=== PATIENT | female | born 1970 | race Caucasian/White ===

== ENCOUNTER 2022-02-05 11:51 | Emergency (ER) | payer OTHER, SELFPAY ==
[2022-02-05 12:08] VITALS: BP 167/73; PULSE 62; RESP 18; TEMP 36.6; O2SAT 100; BMI 35.6
--- NOTE | 2022-02-05 12:14 | ECG_ITS ---
Test Reason : headache Blood Pressure : / mmHG Vent. Rate : 062 BPM Atrial Rate : 062 BPM P-R Int : 136 ms QRS Dur : 080 ms QT Int : 416 ms P-R-T Axes : 039 051 043 degrees QTc Int : 422 ms Normal sinus rhythm Normal ECG No previous ECGs available Referred By: Generic ED Physician Electronically Signed By:ARSENIO BERNAL
[2022-02-05 12:41] LABS: MANUAL DIFF FLAG NO
[2022-02-05 12:42] LABS: Basophils Percent Auto 0.5 % (0-2); Eosinophils Absolute Auto 0.2 X10*3/uL (0.0-0.4); Eosinophils Percent Auto 2.2 % (0-4); Hematocrit 40.5 % (37.0-47.0); Hemoglobin 13.3 g/dl (12.0-16.0); Imm Gran Abs Auto 0.02 X10*3/uL (0.00-0.03); Imm Gran Pct Auto 0.3 % (0.0-0.4); Lymphocytes Absolute Auto 2.1 X10*3/uL (1.2-4.9); Lymphocytes Percent Auto 26.3 % (20-40); Mean Corpuscular HGB Conc 32.8 g/dl (31.0-35.0); Mean Corpuscular Hemoglobin 27.2 pg (27.0-33.0); Mean Corpuscular Volume 82.8 fL (80.0-98.0); Mean Platelet Volume 11.1 fL (9.4-12.3); Monocytes Absolute Auto 0.6 X10*3/uL (0.1-1.2); Monocytes Percent Auto 7.5 % (2-11); Neutrophils Percent Auto 63.2 % (45-73); Platelet Count 298 X10*3/uL (160-400); Red Blood Count 4.89 X10*6/uL (4.20-5.50); Red Cell Distribution Width 13.6 % (11.0-16.0); White Blood Count 7.9 X10*3/uL (4.8-10.8)
[2022-02-05 12:46] LABS: Appearance Urine Clear; Color Urine Yellow; Glucose Urine UA Negative (Negative); Leukocyte Esterase Urine Negative (Negative); Nitrite Urine Negative (Negative); Specific Gravity - Urine <= 1.005 (1.005-1.025); Urine Blood Negative (Negative); Urine Ketones Negative (Negative); Urine Protein Negative (Neg-Trace)
[2022-02-05 13:04] LABS: Alanine Aminotransferase 20 U/L (0-31); Albumin Level 3.8 g/dL (3.5-5.0); Alkaline Phosphatase 102 U/L (39-117); Anion Gap 15 (12-20); Aspartate Amino Transferase 16 U/L (5-31); Bilirubin Direct 0.2 mg/dL (0.0-0.5); Bilirubin Total 0.6 mg/dL (0.0-1.0); Blood Urea Nitrogen 11 mg/dL (9-16); Calcium 8.7 mg/dL (8.4-10.2); Carbon Dioxide 26 mmol/L (22-29); Chloride 102 mmol/L (96-108); Creatinine Clr Calc Pharmacy 93.2; Estimated Glomerular Filt Rate > 60; Glucose Random 99 mg/dL (60-115); Potassium 4.2 mmol/L (3.3-5.1); Sodium 139 mmol/L (135-145); Total Protein 7.2 g/dL (6.5-8.0)
[2022-02-05 13:10] LABS: Troponin-I High Sensitivity < 3.5 ng/L (<3.5-17.0)
--- NOTE | 2022-02-05 16:23 | ED_ITS ---
HPI - Neuro Symptoms/Deficit General Chief Complaint: Neuro Symptoms/Deficit <ZEINAB Fair Last Filed: 02/09/22 17:14> Stated Complaint: headaches/numbness in fingers <ZEINAB Fair Last Filed: 02/09/22 17:14> Time Seen by Provider: 02/05/22 16:23 <ZEINAB Fair Last Filed: 02/09/22 17:14> Source: patient <ZEINAB Little Last Filed: 02/05/22 18:10> Mode of arrival: ambulatory <ZEINAB Little Last Filed: 02/05/22 18:10> Limitations: no limitations <ZEINAB Little Last Filed: 02/05/22 18:10> History of Present Illness HPI Narrative: 51-year-old female with history of migraines, history of hypertension presents to the ER for evaluation of headache since this morning at 5am. She also reports a transient episode of numbness in her right pointer finger and right thumb at 7am today. The numbness is described as a tingling sensation, she never lost muscle function and she never lost sensation She reports this lasted about 10 minutes this morning. She took 800 mg of ibuprofen wtih improvement in her headache. She reports an excessive amount of stress and thinks this may have been contributing. She also reports being right hand dominant and uses a mouse and keyboard for a great portion of the day. She reports feeling much better on arrival to the emergency department. She is hypertensive. She reports compliance with the medication. <ZEINAB Fair Last Filed: 02/09/22 17:14> 51-year-old female with history of migraines, history of hypertension presents to the ER for evaluation of headache since this morning at 5am. She also reports a transient episode of numbness in her right pointer finger and right thumb at 7am today. She reports this lasted about 10 minutes this morning. She took 800 mg of ibuprofen wtih improvement in her headache. She reports an excessive amount of stress and thinks this may have been co ntributing. She also reports being right hand dominant and uses a mouse and keyboard for a great portion of the day. She reports feeling much better on arrival to the emergency department. She is hypertensive. She reports compliance with the medication. <ZEINAB Little Last Filed: 02/05/22 18:10> Onset (ago): hour(s) <ZEINAB Little - Last Filed: 02/05/22 18:10> Location: right arm <ZEINAB Little - Last Filed: 02/05/22 18:10> History of same: Yes <ZEINAB Little - Last Filed: 02/05/22 18:10> Severity: moderate <ZEINAB Little - Last Filed: 02/05/22 18:10> Quality: numb and tingling <ZEINAB Little Last Filed: 02/05/22 18:10> Relieving factors: time <ZEINAB Little - Last Filed: 02/05/22 18:10> Context: gradual onset <ZEINAB Little - Last Filed: 02/05/22 18:10> On Anticoagulants: No <ZEINAB Little - Last Filed: 02/05/22 18:10> Associated symptoms: denies other symptoms <ZEINAB Little - Last Filed: 02/05/22 18:10> Treatments Prior to Arrival: other medication <ZEINAB Little - Last Filed: 02/05/22 18:10> Related Data Allergies/Adverse Reactions: Allergies Allergy/AdvReac Type Severity Reaction Status Date / Time Penicillins [PCN] Allergy Rash Verified 02/05/22 12:07 <ZEINAB Fair - Last Filed: 02/09/22 17:14> Review of Systems Review of Systems: Constitutional: No Fever, No Chills ENT/Mouth: No sore throat, No Rhinorrhea, No Swallowing Difficulty Eyes: No Eye Pain, No Swelling, No Redness, No vision changes Cardiovascular: No Chest Pain, No SOB, No Orthopnea, No Edema Respiratory: No Cough, No Sputum, No Wheezing, No dyspnea Gastrointestinal: No Nausea, No Vomiting, No Diarrhea, No abdominal Pain Genitourinary: No Dysuria, No Urinary Frequency, No Hematuria Musculoskeletal: No joint pain, No Myalgias Skin: No Skin Lesions, No rash Neuro: No Weakness, + Numbness, No Dizziness, + Headache Psych: + Anxiety/Panic, No Depression Heme/Lymph: No Bruising, No Lymphadenopathy Endocrine: No Polyuria, No Polydipsia <ZEINAB Little - Last Filed: 02/05/22 18:10> [facility] Social History Social History: Social History Advance Directives: No Advance Directives Information Provided: No <ZEINAB Fair - Last Filed: 02/09/22 17:14> Physical Exam Vital Signs: Vital Signs: Last Vital Signs Temp 97.9 F 02/05/22 12:08 Pulse 62 02/05/22 12:08 Resp 18 02/05/22 12:08 BP 167/73 H 02/05/22 12:08 Pulse Ox 100 02/05/22 12:08 O2 Del Method 02/05/22 12:08 BMI result Body Mass Index 35.6 <ZEINAB Fair - Last Filed: 02/09/22 17:14> Vital Signs: Last Vital Signs Temp 97.9 F 02/05/22 12:08 Pulse 62 02/05/22 12:08 Resp 18 02/05/22 12:08 BP 167/73 H 02/05/22 12:08 Pulse Ox 100 02/05/22 12:08 O2 Del Method 02/05/22 12:08 BMI result Body Mass Index 35.6 <ZEINAB Little - Last Filed: 02/05/22 18:10> Appearance: Alert. Oriented X3. No acute distress. Eyes: Pupils equal, round and reactive to light. ENT: Pharynx normal. Neck: Normal inspection. Neck supple. CVS: Normal heart rate and rhythm. Pulses normal. Respiratory: No respiratory distress. Breath sounds normal. Abdomen: Soft and nontender. +BS x4 Skin: Skin warm and dry. Normal skin color. Normal skin turgor. No rashes. Extremities: No lower extremity edema. Neuro: Oriented X 3. No motor deficit. No sensory deficit. Speech and cognition are normal. Cranial nerves 2-12 are intact. Nonfocal with no deficits. <ZEINAB Little - Last Filed: 02/05/22 18:10> Course Course Course Narrative: 51-year-old female presents to the ER for evaluation of headache and transient numbness in her right pointer finger and thumb this morning. Triage note mentioned numbness at the bottom of her jaw and weakness in her right leg at 05:00 today but patient adamantly denies. She states her symptoms have resolved and she would like to go home. We discussed getting a CT scan and she refused. She states she had one 3 months ago. Her exam is nonfocal now and her numbness may be due to nerve compression and using her mouse. She will come back to the ER if symptoms recur or worsen. She is stable for d/c home. <ZEINAB Little - Last Filed: 02/05/22 18:10> MDM - Neuro Symptoms/Deficit Lab Data Result diagrams: : 02/05/22 12:32 02/05/22 12:32 <ZEINAB Fair - Last Filed: 02/09/22 17:14> Labs: Lab Results 02/05/22 02/05/22 02/05/22 Range/Units 12:32 12:32 12:32 WBC 7.9 (4.8-10.8) X10*3/uL RBC 4.89 (4.20-5.50) X10*6/uL Hgb 13.3 (12.0-16.0) g/dl Hct 40.5 (37.0-47.0) % MCV 82.8 (80.0-98.0) fL MCH 27.2 (27.0-33.0) pg MCHC 32.8 (31.0-35.0) g/dl RDW 13.6 (11.0-16.0) % Plt Count 298 (160-400) X10*3/uL MPV 11.1 (9.4-12.3) fL Immature Gran % (Auto) 0.3 (0.0-0.4) % Neut % (Auto) 63.2 (45-73) % Lymph % (Auto) 26.3 (20-40) % [place] % (Auto) 7.5 (2-11) % Eos % (Auto) 2.2 (0-4) % Baso % (Auto) 0.5 (0-2) % Lymph # (Auto) 2.1 (1.2-4.9) X10*3/uL [place] # (Auto) 0.6 (0.1-1.2) X10*3/uL Eos # (Auto) 0.2 (0.0-0.4) X10*3/uL Baso # (Auto) 0.0 (0.0-0.2) X10*3/uL Abs Immat Gran (auto) 0.02 (0.00-0.03) X10*3/uL Absolute Neuts (auto) 5.0 (2.0-8.3) x10*3/uL Absolute Nucleated RBC 0.000 (0.0-0.012) X10*3/uL Nucleated RBC % (auto) 0.0 (0.0-0.2) /100WBC Sodium 139 (135-145) mmol/L Potassium 4.2 (3.3-5.1) mmol/L Chloride 102 (96-108) mmol/L Carbon Dioxide 26 (22-29) mmol/L Anion Gap 15 (12-20) BUN 11 (9-16) mg/dL Creatinine 0.71 (0.5-1.4) mg/dL Estim Creat Clear Calc 93.2 Estimated GFR > 60 Random Glucose 99 (60-115) mg/dL Calcium 8.7 (8.4-10.2) mg/dL Total Bilirubin 0.6 (0.0-1.0) mg/dL Direct Bilirubin 0.2 (0.0-0.5) mg/dL AST 16 (5-31) U/L ALT 20 (0-31) U/L Alkaline Phosphatase 102 (39-117) U/L Troponin I High Sens < 3.5 (<3.5-17.0) ng/L Total Protein 7.2 (6.5-8.0) g/dL Albumin 3.8 (3.5-5.0) g/dL Urine Color Urine Appearance Urine pH (5.0-9.0) Ur Specific [place] (1.005-1.025) Urine Protein (Neg-Trace) mg/dL Urine Glucose (UA) (Negative) mg/dL Urine Ketones (Negative) mg/dL Urine Blood (Negative) Urine Nitrite (Negative) Ur Leukocyte Esterase (Negative) 02/05/22 Range/Units 12:32 WBC (4.8-10.8) X10*3/uL RBC (4.20-5.50) X10*6/uL Hgb (12.0-16.0) g/dl Hct (37.0-47.0) % MCV (80.0-98.0) fL MCH (27.0-33.0) pg MCHC (31.0-35.0) g/dl RDW (11.0-16.0) % Plt Count (160-400) X10*3/uL MPV (9.4-12.3) fL Immature Gran % (Auto) (0.0-0.4) % Neut % (Auto) (45-73) % Lymph % (Auto) (20-40) % [place] % (Auto) (2-11) % Eos % (Auto) (0-4) % Baso % (Auto) (0-2) % Lymph # (Auto) (1.2-4.9) X10*3/uL [place] # (Auto) (0.1-1.2) X10*3/uL Eos # (Auto) (0.0-0.4) X10*3/uL Baso # (Auto) (0.0-0.2) X10*3/uL Abs Immat Gran (auto) (0.00-0.03) X10*3/uL Absolute Neuts (auto) (2.0-8.3) x10*3/uL Absolute Nucleated RBC (0.0-0.012) X10*3/uL Nucleated RBC % (auto) (0.0-0.2) /100WBC Sodium (135-145) mmol/L Potassium (3.3-5.1) mmol/L Chloride (96-108) mmol/L Carbon Dioxide (22-29) mmol/L Anion Gap (12-20) BUN (9-16) mg/dL Creatinine (0.5-1.4) mg/dL Estim Creat Clear Calc Estimated GFR Random Glucose (60-115) mg/dL Calcium (8.4-10.2) mg/dL Total Bilirubin (0.0-1.0) mg/dL Direct Bilirubin (0.0-0.5) mg/dL AST (5-31) U/L ALT (0-31) U/L Alkaline Phosphatase (39-117) U/L Troponin I High Sens (<3.5-17.0) ng/L Total Protein (6.5-8.0) g/dL Albumin (3.5-5.0) g/dL Urine Color Yellow Urine Appearance Clear Urine pH 6.0 (5.0-9.0) Ur Specific [place] <= 1.005 (1.005-1.025) Urine Protein Negative (Neg-Trace) mg/dL Urine Glucose (UA) Negative (Negative) mg/dL Urine Ketones Negative (Negative) mg/dL Urine Blood Negative (Negative) Urine Nitrite Negative (Negative) Ur Leukocyte Esterase Negative (Negative) <ZEINAB Fair - Last Filed: 02/09/22 17:14> Lab Results 02/05/22 02/05/22 02/05/22 Range/Units 12:32 12:32 12:32 WBC 7.9 (4.8-10.8) X10*3/uL RBC 4.89 (4.20-5.50) X10*6/uL Hgb 13.3 (12.0-16.0) g/dl Hct 40.5 (37.0-47.0) % MCV 82.8 (80.0-98.0) fL MCH 27.2 (27.0-33.0) pg MCHC 32.8 (31.0-35.0) g/dl RDW 13.6 (11.0-16.0) % Plt Count 298 (160-400) X10*3/uL MPV 11.1 (9.4-12.3) fL Immature Gran % (Auto) 0.3 (0.0-0.4) % Neut % (Auto) 63.2 (45-73) % Lymph % (Auto) 26.3 (20-40) % [place] % (Auto) 7.5 (2-11) % Eos % (Auto) 2.2 (0-4) % Baso % (Auto) 0.5 (0-2) % Lymph # (Auto) 2.1 (1.2-4.9) X10*3/uL [place] # (Auto) 0.6 (0.1-1.2) X10*3/uL Eos # (Auto) 0.2 (0.0-0.4) X10*3/uL Baso # (Auto) 0.0 (0.0-0.2) X10*3/uL Abs Immat Gran (auto) 0.02 (0.00-0.03) X10*3/uL Absolute Neuts (auto) 5.0 (2.0-8.3) x10*3/uL Absolute Nucleated RBC 0.000 (0.0-0.012) X10*3/uL Nucleated RBC % (auto) 0.0 (0.0-0.2) /100WBC Sodium 139 (135-145) mmol/L Potassium 4.2 (3.3-5.1) mmol/L Chloride 102 (96-108) mmol/L Carbon Dioxide 26 (22-29) mmol/L Anion Gap 15 (12-20) BUN 11 (9-16) mg/dL Creatinine 0.71 (0.5-1.4) mg/dL Estim Creat Clear Calc 93.2 Estimated GFR > 60 Random Glucose 99 (60-115) mg/dL Calcium 8.7 (8.4-10.2) mg/dL Total Bilirubin 0.6 (0.0-1.0) mg/dL Direct Bilirubin 0.2 (0.0-0.5) mg/dL AST 16 (5-31) U/L ALT 20 (0-31) U/L Alkaline Phosphatase 102 (39-117) U/L Troponin I High Sens < 3.5 (<3.5-17.0) ng/L Total Protein 7.2 (6.5-8.0) g/dL Albumin 3.8 (3.5-5.0) g/dL Urine Color Urine Appearance Urine pH (5.0-9.0) Ur Specific [place] (1.005-1.025) Urine Protein (Neg-Trace) mg/dL Urine Glucose (UA) (Negative) mg/dL Urine Ketones (Negative) mg/dL Urine Blood (Negative) Urine Nitrite (Negative) Ur Leukocyte Esterase (Negative) 02/05/22 Range/Units 12:32 WBC (4.8-10.8) X10*3/uL RBC (4.20-5.50) X10*6/uL Hgb (12.0-16.0) g/dl Hct (37.0-47.0) % MCV (80.0-98.0) fL MCH (27.0-33.0) pg MCHC (31.0-35.0) g/dl RDW (11.0-16.0) % Plt Count (160-400) X10*3/uL MPV (9.4-12.3) fL Immature Gran % (Auto) (0.0-0.4) % Neut % (Auto) (45-73) % Lymph % (Auto) (20-40) % [place] % (Auto) (2-11) % Eos % (Auto) (0-4) % Baso % (Auto) (0-2) % Lymph # (Auto) (1.2-4.9) X10*3/uL [place] # (Auto) (0.1-1.2) X10*3/uL Eos # (Auto) (0.0-0.4) X10*3/uL Baso # (Auto) (0.0-0.2) X10*3/uL Abs Immat Gran (auto) (0.00-0.03) X10*3/uL Absolute Neuts (auto) (2.0-8.3) x10*3/uL Absolute Nucleated RBC (0.0-0.012) X10*3/uL Nucleated RBC % (auto) (0.0-0.2) /100WBC Sodium (135-145) mmol/L Potassium (3.3-5.1) mmol/L Chloride (96-108) mmol/L Carbon Dioxide (22-29) mmol/L Anion Gap (12-20) BUN (9-16) mg/dL Creatinine (0.5-1.4) mg/dL Estim Creat Clear Calc Estimated GFR Random Glucose (60-115) mg/dL Calcium (8.4-10.2) mg/dL Total Bilirubin (0.0-1.0) mg/dL Direct Bilirubin (0.0-0.5) mg/dL AST (5-31) U/L ALT (0-31) U/L Alkaline Phosphatase (39-117) U/L Troponin I High Sens (<3.5-17.0) ng/L Total Protein (6.5-8.0) g/dL Albumin (3.5-5.0) g/dL Urine Color Yellow Urine Appearance Clear Urine pH 6.0 (5.0-9.0) Ur Specific [place] <= 1.005 (1.005-1.025) Urine Protein Negative (Neg-Trace) mg/dL Urine Glucose (UA) Negative (Negative) mg/dL Urine Ketones Negative (Negative) mg/dL Urine Blood Negative (Negative) Urine Nitrite Negative (Negative) Ur Leukocyte Esterase Negative (Negative) <ZEINAB Little - Last Filed: 02/05/22 18:10> Discharge Plan Discharge Clinical Impression: Migraine <ZEINAB Fair - Last Filed: 02/09/22 17:14> Patient Disposition: Home, Self-Care <ZEINAB Fair - Last Filed: 02/09/22 17:14> Instructions: Migraine Headache (ED) <ZEINAB Fair - Last Filed: 02/09/22 17:14> Additional Instructions: Your lab workup today was unremarkable. Recommend taking [id number] Excedrin migraine for your headaches. Follow-up with her primary care doctor. If you develop new or worsening symptoms call 911 or come back to the ER for further evaluation. <ZEINAB Fair - Last Filed: 02/09/22 17:14> Interventions: ED Discharge Assessment Last Done: 02/05/22 18:10 <ZEINAB Fair - Last Filed: 02/09/22 17:14> Discharge Date/Time: 02/05/22 18:11 <ZEINAB Fair - Last Filed: 02/09/22 17:14>
== END 2022-02-05 18:11 | disposition home or self-care (01) ==
PROVIDERS: Emergency Provider Emergency Medicine
DX: G43.909 Migraine, unspecified, not intractable, without status migrainosus (principal); Z79.899 Other long term (current) drug therapy
CPT/HCPCS: 36415; 80053; 81003; 82248; 84484; 85025; 93005; 99283; 99284

== ENCOUNTER → 2022-10-14 15:34 | Outpatient (BNVA) | payer OTHER, SELFPAY | PROVIDERS: Visit Provider Physician Assistant Surgical | DX: E66.9 Obesity, unspecified (principal); R73.03 Prediabetes; I10 Essential (primary) hypertension | CPT/HCPCS: 99202 ==

== ENCOUNTER 2022-11-01 | Outpatient (REF) | payer OTHER, SELFPAY ==
[2022-11-04 16:12] LABS: H Pylori Breath Test Negative (Negative)
== END 2022-11-01 00:01 | disposition home or self-care (01) ==
LOC: HO.LNP
PROVIDERS: Visit Provider Physician Assistant Surgical
DX: Z11.0 Encounter for screening for intestinal infectious diseases (principal)
CPT/HCPCS: 83013

== ENCOUNTER → 2022-11-01 15:41 | Outpatient (BNVA) | payer OTHER, SELFPAY | PROVIDERS: Visit Provider Physician Assistant Surgical | DX: Z11.0 Encounter for screening for intestinal infectious diseases (principal); E66.9 Obesity, unspecified; R73.03 Prediabetes; I10 Essential (primary) hypertension; Z68.36 Body mass index [BMI] 36.0-36.9, adult | CPT/HCPCS: 99211; 99212 ==

== ENCOUNTER 2022-11-03 13:08 | Outpatient (REF) | payer OTHER, SELFPAY ==
--- NOTE | 2022-11-03 13:16 | ECG_ITS ---
Test Reason : OBESITY Blood Pressure : / mmHG Vent. Rate : 066 BPM Atrial Rate : 066 BPM P-R Int : 140 ms QRS Dur : 084 ms QT Int : 428 ms P-R-T Axes : 028 026 021 degrees QTc Int : 448 ms Normal sinus rhythm with sinus arrhythmia Normal ECG When compared with ECG of 05-FEB-2022 12:23, No significant change was found Referred By: Linda Jaquez Electronically Signed By:Collin Anthony
[2022-11-03 13:28] LABS: MANUAL DIFF FLAG NO
[2022-11-03 14:10] LABS: Basophils Percent Auto 0.3 % (0-2); Eosinophils Absolute Auto 0.2 X10*3/uL (0.0-0.4); Eosinophils Percent Auto 3.4 % (0-4); Hemoglobin 13.1 g/dl (12.0-16.0); Imm Gran Abs Auto 0.02 X10*3/uL (0.00-0.03); Imm Gran Pct Auto 0.3 % (0.0-0.4); Lymphocytes Percent Auto 31.4 % (20-40); Mean Corpuscular Hemoglobin 27.2 pg (27.0-33.0); Mean Corpuscular Volume 85.2 fL (80.0-98.0); Mean Platelet Volume 12.2 fL (9.4-12.3); Monocytes Absolute Auto 0.4 X10*3/uL (0.1-1.2); Monocytes Percent Auto 6.1 % (2-11); Neutrophils Absolute Auto 3.8 x10*3/uL (2.0-8.3); Neutrophils Percent Auto 58.5 % (45-73); Platelet Count 268 X10*3/uL (160-400); Red Blood Count 4.81 X10*6/uL (4.20-5.50); Red Cell Distribution Width 13.2 % (11.0-16.0); White Blood Count 6.4 X10*3/uL (4.8-10.8)
[2022-11-03 14:22] LABS: Estimated Average Glucose 117 mg/dL; Hemoglobin A1c % 5.7 %
[2022-11-03 15:53] LABS: Alanine Aminotransferase 66 U/L (0-31); Albumin Level 3.9 g/dL (3.5-5.0); Alkaline Phosphatase 122 U/L (39-117); Anion Gap 16 (12-20); Aspartate Amino Transferase 35 U/L (5-31); Bilirubin Total 0.9 mg/dL (0.0-1.0); Blood Urea Nitrogen 11 mg/dL (9-16); C Reactive Protein 0.28 mg/dL (< or = 0.50); Calcium 9.3 mg/dL (8.4-10.2); Carbon Dioxide 26 mmol/L (22-29); Chloride 103 mmol/L (96-108); Cholesterol 149 mg/dL; Estimated Glomerular Filt Rate > 60; Glucose Random 80 mg/dL (60-115); HDL Cholesterol 30 mg/dL; Iron 66 mcg/dL (30-160); LDL Cholesterol Calculated 104 mg/dl; Percent Iron Saturation 23 % (15-50); Potassium 3.7 mmol/L (3.3-5.1); Sodium 141 mmol/L (135-145); Total Iron Binding Capacity 292 mcg/dL (228-428); Total Protein 7.4 g/dL (6.5-8.0); Triglycerides 77 mg/dL; Unsaturated Iron Binding 226 ug/dL
[2022-11-03 16:16] LABS: Ferritin 54 ng/mL (10-250); Folate 17.1 ng/mL (> or = 4.0); Insulin 10 uU/mL (2-29); TSH reflex Free T4 1.28 uIU/mL (0.32-4.0); Vitamin B12 537 pg/mL (200-900)
[2022-11-04 22:24] LABS: PTHI 61 pg/mL (16-77)
[2022-11-07 15:24] LABS: Zinc 81 mcg/dL (60-130)
[2022-11-08 08:44] LABS: Vitamin B1 10 nmol/L (8-30)
[2022-11-09 20:13] LABS: Vitamin A 37 mcg/dL (38-98)
== END 2022-11-03 13:09 | disposition home or self-care (01) ==
LOC: HO.LAB 13:08
PROVIDERS: Visit Provider Physician Assistant Surgical
DX: E66.9 Obesity, unspecified (principal); I10 Essential (primary) hypertension; R73.03 Prediabetes
CPT/HCPCS: 36415; 80053; 80061; 82306; 82607; 82728; 82746; 83036; 83525; 83540; 83970; 84425; 84443; 84590; 84630; 85025; 86140; 93005

== ENCOUNTER 2022-12-07 15:35 | Outpatient (AMB) | payer OTHER, SELFPAY ==
--- NOTE | 2022-12-07 15:49 | MHC.OFFVISWM ---
Intake VS Expanded 12/07/22 15:50 Height 5 ft 1 in Weight 192 lb BMI 36.3 BP 130/85 Blood Pressure Location Rt brachial Blood Pressure Position Sitting Pulse 99 Pulse Source Pulse Oximeter Temp 98.0 F Temperature Source Temporal Artery Scan Pulse Oximetry 95 Oxygen Delivery Method Room Air Body Fat 83.6 Body Fat Percentage 43.6 Free Fat Mass 108.2 Muscle Mass 102.8 Visceral Mass 12.0 Water Mass 77.0 BMR 1,512 Intake Visit Reasons: (OV) F/U SWL Allergies Penicillins [PCN] Allergy (Verified 12/07/22 15:51) Rash Medication List - Last Reconciled 12/07/22 by ZEINAB Santana cholecalciferol (vitamin D3) 125 mcg PO DAILY gabapentin 100 mg PO TID olmesartan-hydrochlorothiazide 20-12.5 mg 1 tab PO DAILY oxycodone 5 mg PO Q6H PRN vitamin A palmitate 10,000 units PO DAILY HPI HPI Comments History of Present Illness Details The patient is a pleasant 52 year old female who returns to the clinic for pre-operative surgical weight loss management.? They were last seen in the office on 11/01/2022, recorded weight at that time was 195.2 pounds, with a BMI of 36.9.? Today's weight is 192 pounds and BMI is 36.3.? There has been a weight loss of 5.2 pounds since initiating the surgical weight loss program on 10/14/2022 with a total body weight loss of 2.93 %. Pre op work up completed as follows: SWL classes:? 09/04 BH appts: scheduled for 12/20 ?? RD appts: none scheduled Labs: LFTs mildly elevated, low vit A/D H. pylori: 11/01 negative CXR: pt plans to have done next week EKG: Normal sinus rhythm with sinus arrhythmia; Normal ECG ABD U/S: scheduled for 12/21 UGI: 12/21 Having a lot of sciatic pain, was started on oxycodone/gabapentin/PO steroids to help with this. MRI pending. Did stop shakes for a while. Current meal plan includes: 2 Pure Protein shakes (HALF scoop in 8oz low fat unsweetened almond milk each) at 8am-10am and 2pm-4pm 2 Atkins or Celebrate protein bars at 11am-1pm and 8pm-10pm Dinner at 6pm (7 forks of protein and 7 forks of salad/vegetables). Current exercise plan includes: none?? PFSH Surgical History Hx laparoscopic cholecystectomy Hx of breast augmentation Hx of section Hx of cosmetic plastic surgery Family History Mother Heart disease Father Kidney disease Hypertension Diabetes Sister Hypertension Brother Hypertension Diabetes Son No problems noted. Daughter No problems noted. Daughter No problems noted. Social History Alcohol intake: never Patient Tobacco Use Status: Never used Tobacco Physical Exam Vital Signs: BMI result Body Mass Index 36.3 Assessment & Plan Assessment & Plan (1) Obesity: Code(s): E66.9 - Obesity, unspecified (2) Prediabetes: Code(s): R73.03 - Prediabetes (3) Hypertension: Code(s): I10 - Essential (primary) hypertension Plan Pt does not want to use vanilla shakes, will try chocolate flavor- I encouraged her to let me know if she does not like those and we can change to protein bars or protein christopher instead. Discussed the importance of getting adequate protein intake every day, not skipping meals. Encouraged pt to try home workout videos like Sit and Be Fit. RTC 3-4 weeks, can plan for visit with surgeon after next visit. Patient is obese and is not considered stable at this time. I spent a total of 30 minutes reviewing/updating records, examining the patient and counseling the patient on weight management as detailed above. Coding Level of Care Code Est Pt Level 4 (22244) Diagnoses Obesity E66.9 Prediabetes R73.03 Hypertension I10
[2022-12-07 15:50] VITALS: BP 130/85; PULSE 99; TEMP 36.7; O2SAT 95; BMI 36.3
== END 2022-12-07 16:14 | disposition home or self-care (01) ==
PROVIDERS: Visit Provider Physician Assistant Surgical
DX: E66.9 Obesity, unspecified (principal); Z68.36 Body mass index [BMI] 36.0-36.9, adult; R73.03 Prediabetes; I10 Essential (primary) hypertension
CPT/HCPCS: 99214

== ENCOUNTER → 2022-12-07 15:35 | Outpatient (BNVA) | payer OTHER, SELFPAY | PROVIDERS: Visit Provider Physician Assistant Surgical | DX: E66.9 Obesity, unspecified (principal); Z68.36 Body mass index [BMI] 36.0-36.9, adult; R73.03 Prediabetes; I10 Essential (primary) hypertension | CPT/HCPCS: 99212 ==

== ENCOUNTER 2022-12-14 15:15 | Outpatient (AMB) | payer OTHER, SELFPAY ==
--- NOTE | 2022-12-14 15:14 | A.OFFWM_ITS ---
Intake Intake Visit Reasons: VIDEO BH Intake Allergies Penicillins [PCN] Allergy (Verified 12/07/22 15:51) Rash PFSH Surgical History Hx laparoscopic cholecystectomy Hx of breast augmentation Hx of section Hx of cosmetic plastic surgery Family History Mother Heart disease Father Kidney disease Hypertension Diabetes Sister Hypertension Brother Hypertension Diabetes Son No problems noted. Daughter No problems noted. Daughter No problems noted. Social History Alcohol intake: never Patient Tobacco Use Status: Never used Tobacco Behavioral Health Assessment Weight Management Therapy Therapy Notes Details Pt is a 52 years old, marieed, female, who presents for initial behavioral health assessment as part of surgical weight-loss program. PT denied any history of mental health treatment and or past hospitalization/crisis for behavioral health. Denies any safety concerns around SI and/or self-other harm, also there is no history of substance use reported. PT reported mild challenges with stress/emotional-eating, however feeling capable of manging these urges with variety of strategies to distract her mind; scores from BES suggest lower risk for binge eating behavior and, PHQ- scores showed no active symptoms/concerns with depression. Mental status exam is withing normal limits, suggesting person's functioning is not impaired. Today, she was provided with counseling for goal setting, habit building and strategies for managing unwated thoughts around food. We also discussed strategies to organize her routine and maintain consistency with exercise routine. At this time patient is cleared from the behavioral health standpoint and there is no need for a follow up. Presenting Concerns Referral Source WMP Provider. Reason for referral Completion of behavioral health assessment as part of process for weight-loss surgery. Precipitating Event Medical issues. Living Situation Current Living Situation Own At risk of losing current housing? No Satisfied with current living situation? Yes Comments Pt lives with . Food/Weight/Diet Expectations of change Initial goal is to lose 10% of her weight before surgery, which is about 19 lbs. Ultimate weight goal: 178 lbs. before surgery. History/Relationship with food PT reports she usually had 3 meals at day, but snacks in between meals. Example- Breakfast: 2 HBE and coffee or cereal. Lunch: rice/beans/meat. Dinner: salad/protein. Snacks were: fruit/protein bars. In the last year her work/life schedule has hanged and she's has not have the opportunity to have scheduled meals, and ends up eating later in the day or eating unhealthy choices. She struggles with stress-eating. Deals with this regularly but most of the time she's able to distract and not engage in eating. History/Relationship with weight Lowest is 138Lbs in 2014. Max weight 198Lbs when started program. As a child and teen she was chuby , states she has never been skinny. With pregnancies she gained no more than 30Lbs. However, as she was active with exercise and taking care of meals she was able to maintain a weight she was comfortable with. History/Relationship with dieting OTC pills, diets, intermittent fasting, slimfast. Binge Eating Do you frequently eat large amounts of food in short periods of time, not feeling physically hungry? No Do you feel out of control when you eat a large amount of food in a short period of time? No Do you eat large amounts of food rapidly and typically alone? No Night Eating Do you wake up at least once during the night to eat? No If you wake up in the night, do you find that it is necessary to eat something in order to fall back asleep? No Do you have little or no appetite in the morning and feel very hungry in the evening, often overeating between dinner and when you go to bed? No Social History Family history and relationship Pt is 3 years ago but has been in a long-term relationship with for about 14 years. Pt has 3 adult children (29, 28, 26 y/o) and 2 grandchildren. 2 brothers, parents . PT reported good family relationships. 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 Developmental history and status None reported. Social support , children, friends. Has some friends who had bariatric surgery. A friend who will be her gym partner. Community support Providers [facility]/Spirituality None Cultural/Ethnic information Pt is , from [place]. Lives in [place] 26 years ago. Legal Involvement and History Current or historical involvement with the legal system? None reported. Education Highest grade completed 12Th grade, associate degree in business administration. Preferred learning style Verbal and Written Currently enrolled in educational program? No Interested in further educational program? 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 No Meaningful activities Volleyball, gym, watch Tv, reading, crossword games. Financial Situation Describe current financial situation Comfortable Financial assistance? None Service Service? No Mental Health and Addiction Treatment Current/Past substance abuse? No Current/Past addictive behavior concerns? No Psychiatric history Never in therapy, in crisis or hospitalized for mental health. Denies any SI and/or self/other-harm concern. Medical and Physical Health Summary Additional Medical History not covered in history None reported. Sexual History concerns None reported. Physical exam in the last year? Yes Pain Screening Current pain? Yes Pain in the last few months? Yes Comments Sciatic nerve pain, back problem. Medications Is the patient compliant with medications? Yes Does the patient have Gomez Guardian in place? Not applicable Does the patient use complimentary health approaches? No Trauma/Abuse History History of trauma? No Questionnaires PHQ-9 Over the last 2 weeks, how often have you been bothered by any of the following problems? 1. Little interest or pleasure in doing things: not at all 2. Feeling down, depressed, or hopeless: not at all 3. Trouble falling or staying asleep, or sleeping too much: not at all 4. Feeling tired or having little energy: not at all 5. Poor appetite or overeating: not at all 6. Feeling bad about yourself - or that you are a failure or have let yourself or your family down: not at all 7. Trouble concentrating on things, such as reading the newspaper or watching television: not at all 8. Moving or speaking so slowly that other people could have noticed. Or the opposite - being so fidgety or restless that you have been moving around a lot more than usual: not at all 9. Thoughts that you would be better off or of hurting yourself in some way: not at all Total score: 0 Depression Screening Interpretation: Negative Source: Developed by Drs. Matthew Hinojosa, Iliana Alcala, Nba Jackson and colleagues, with an educational sharla from [employer]. Binge Eating Scale Group 1 A. I don't feel self-conscious about my wt. or body size when I'm with others. B. I feel concerned about how I look to others, but it normally does not make me fell disappointed with myself C. I do get self-conscious about my appearance and wt. which makes me feel disappointed in myself. D. I feel very self-conscious about my wt. and frequently I feel intense shame and disgust for myself. I try to avoid social contacts because of my self- consciousness. Response Group 1: C Group 2 A. I don't have any difficulty eating slowly in the proper manner. B. Although I seem to gobble down foods, I don't end up feeling stuffed because of eating to much. C. At times, I tend to eat quickly and then, I feel uncomfortably full afterwards. D. I have the habit of bolting down my food, without really chewing it. When this happens I usually feel uncomfortably stuffed because I've eaten to much. Response Group 2: A Group 3 A. I feel capable to control my eating urges when I want to. B. I feel like I have failed to control my eating more than the average person. C. I feel utterly helpless when it comes to feeling in control of my eating urges. D. Because I feel so helpless about controlling my eating I have become very desperate about trying to get control. Response Group 3: C Group 4 A. I don't have the habit of eating when I'm bored. B. I sometimes eat when I'm bored, but often I'm able to get busy and get my mind off food. C. I have a regular habit of eating when I'm bored, but occasionally, I can use some other activity to get my mind off eating. D. I have a strong habit of eating when I'm bored. Nothing seems to help me breath the habit. Response Group 4: B Group 5 A. I'm usually physically hungry when I eat something. B. Occasionally, I eat something on impulse even though I really am not hungry. C. I have the regular habit of eating foods, that I might not really enjoy, to satisfy a hungry feeling even though physically, I don't need the food. D. Although I'm not physically hungry, I get a hungry feeling in my mouth that only seems to be satisfied when I eat a food, like sandwich, that fills my mouth. Sometimes, when I eat the food to satisfy my mouth hunger, I then spit the food out so I won't gain weight. Response Group 5: B Group 6 A. I don't feel any guilt or self-hate after I overeat. B. After I overeat, occasionally I feel guilt or self-hate. C. Almost all the time I experience strong guilt or self-hate after I overeat. Response Group 6: C Group 7 A. I don't lose total control of my eating when dieting even after periods when I overeat. B. Sometimes when I eat a forbidden food on a diet, I feel like I blew it and eat even more. C. Frequently, I have the habit of saying to myself, I've blown it now, why not go all the way, when I overeat on a diet. When that happens I eat more. D. I have a regular habit of starting a strict diets for myself but I break the diets by going on an eating binge. My life seems to be either a feast or famine. Response Group 7: A Group 8 A. I rarely eat so much food that I feel uncomfortably stuffed afterwards. B. Usually about once a month, I each such a quantity of food, I end up feeling very stuffed. C. I have regular periods during the month when I eat large amounts of food, either at mealtime or at snacks. D. I eat so much food that I regularly feel quite uncomfortable after eating and sometimes a bit nauseous. Response Group 8: A Group 9 A. My level of calorie intake does not go up very high or go down very low on a regular basis. B. Sometimes after I overeat, I will try to reduce my caloric intake to almost nothing to compensate for the excess calories I've eaten. C. I have a regular habit of overeating during the night. It seems that my routine is not to be hungry in the morning but overeat in the evening. D. In my adult years, I have had week-long periods where I practically starve myself. This follows periods when I overeat. It seems I live a life of either feast or famine. Response Group 9: C Group 10 A. I usually am able to stop eating when I want to. I know when enough is enough. B. Every so often, I experience a compulsion to eat which I can't seem to control. C. Frequently, I experience strong urges to eat which I seem unable to control, but at other times I can control my eating urges. D. I feel incapable of controlling urges to eat. I have a fear of not being able to stop eating voluntarily. Response Group 10: C Group 11 A. I don't have any problem stopping eating when I feel full. B. I usually can stop eating when I feel full but occasionally overeat leaving me feeling uncomfortably stuffed. C. I have a problem stopping eating once I start and usually I feel uncomfortably stuffed after I eat a meal. D. Because I have a problem not being able to stop eating when I want, I sometimes have to induce vomiting to relieve my stuffed feeling. Response Group 11: B Group 12 A. I seem to eat just as much when I'm with others, Family social gatherings as when I'm by myself. B. Sometimes, when I'm with other persons, I don't eat as much as I want to eat because I'm self-conscious about my eating. C. Frequently, I eat only a small amount of food when others are present, because I'm very embarrassed about my eating. D. I feel so ashamed about overeating that I pick times to overeat when I know no one will see me. I feel like a closet eater. Response Group 12: A Group 13 A. I eat three meals a day with only an occasional between meal snack. B. I eat 3 meals a day, but I also normally snack between meals. C. When I am snacking heavily, I get in the habit of skipping regular meals. D. There are regular periods when I seem to be continually eating, with no planned meals. Response Group 13: B Group 14 A. I don't think much about trying to control unwanted eating urges. B. At least some of the time, I feel my thoughts are pre-occupied with trying to control my eating urges. C. I feel that frequently I spend much time thinking about how much I ate or about trying not to eat anymore. D. It seems to me that most of my waking hours are pre-occupied by thoughts about eating or not eating. I feel like I'm constantly struggling not to eat. Response Group 14: C Group 15 A. I don't think about food a great deal. B. I have strong craving for food but they last only for brief periods of time. C. I have days when I can't seem to think about anything else but food. D. Most of my days seem to be pre-occupied with thoughts about food. I feel like I live to eat. Response Group 15: B Group 16 A. I usually know whether or not I'm physically hungry. I take the right portion of food to satisfy me. B. Occasionally, I feel uncertain about knowing whether or not I'm physically hungry. A these times it's hard to know how much food I should take to satisfy me. C. Even though I might know how many calories I should eat, I don't have any idea what is a normal amount of food for me. Response Group 16: C Binge Eating Score: 19 Score less than 17 Minimal Risk Score between 18-26 Moderate Risk Score between 27-46 High Risk Assessment & Plan Assessment & Plan (1) Adjustment disorder: Code(s): F43.20 - Adjustment disorder, unspecified Qualifiers: Adjustment disorder type: with mixed disturbance of emotions and conduct Qualified Code(s): F43.25 - Adjustment disorder with mixed disturbance of emotions and conduct Plan After completing the assessment and comparing scores from Binge eating scale and PHQ9, at this time, this engineering technical writer has no concerns about client's mental status. Client is cleared and there is no need for follow up. Clinician has advised client about available resources if ever in need to access additional support and has encourage client to participate in post-op groups. Telehealth Telehealth Location of provider rendering services: practice address Location of patient: address on file Patient Identification confirmed using: Name, : Yes Telehealth method: video Patient verbally consented to treatment: Yes Patient verbally consented to billing insurance company: Yes Patient informed of any privacy concerns related to visit: Yes Minutes spent on Phone/Video with Pt.: 60 Coding Level of Care Code New Pt Tele Psy Diag Eval (10572) Patient Type New Diagnoses Adjustment disorder F43.25 Adjustment disorder type: with mixed disturbance of emotions and conduct Time Spent (min) 60 Comment 3:00-4:00pm
== END 2022-12-14 16:30 ==
PROVIDERS: Visit Provider Counselor Mental Health
DX: F43.25 Adjustment disorder with mixed disturbance of emotions and conduct (principal)
CPT/HCPCS: 90791

== ENCOUNTER 2022-12-21 07:56 | Outpatient (REF) | payer OTHER, SELFPAY ==
--- NOTE | ~2022-12-21 | XR_ITS ---
EXAMINATION: XR CHEST CLINICAL INFORMATION: Obesity COMPARISON: None available. TECHNIQUE: 2 views of the chest were obtained. FINDINGS: No significant abnormality is noted involving the heart, lungs, mediastinum, bony thorax or soft tissues. XR/XR chest 2V IMPRESSION: Unremarkable chest exam
--- NOTE | ~2022-12-21 | US_ITS ---
EXAMINATION: US COMPLETE ABDOMEN WITH LIVER ELASTOGRAPHY CLINICAL INFORMATION: Obesity COMPARISON: None available. TECHNIQUE: Real-time imaging of the abdominal viscera. Noninvasive ultrasound liver fibrosis assessment is performed using Hilario ElastPQ point quantification shear wave elastography (2D-SWE) with a C5-2 MHz transducer. Multiple elastography samples are obtained. FINDINGS: PANCREAS: Normal. The visualized pancreatic head and body are normal in appearance. The remainder of the pancreas is obscured from visualization by the overlying bowel gas. ABDOMINAL AORTA: The proximal, middle, and distal aortic segments are normal in caliber. INFERIOR VENA CAVA: Visualized portions are normal. LIVER: There is generally increased echogenicity consistent with fatty infiltration/hepatocellular disease. No focal mass or intrahepatic bile duct dilatation is identified. The right lobe measures 13.6 cm in length. The left lobe measures 12.3 cm in length. Portal flow is hepatopedal Shear wave liver elastography median stiffness is 1.67 m/s (reference: normal median stiffness is 1.3 m/s or less). IQR/median stiffness to assess sampling precision is 0.18 (reference: good quality data set is IQR/median stiffness of 0.15 or less). GALLBLADDER: Status post cholecystectomy. COMMON BILE DUCT: Normal in caliber measuring 0.3 cm in diameter. RIGHT KIDNEY: Normal. No hydronephrosis. No renal calculi or focal parenchymal lesions. The kidney measures 10.7 cm in maximum dimension. LEFT KIDNEY: Normal. No hydronephrosis. No renal calculi or focal parenchymal lesions. The kidney measures 10.3 cm in maximum dimension. SPLEEN: Normal. The spleen measures 8.9 cm in maximum dimension. FREE FLUID: None. US/US abdomen comp w elastography IMPRESSION: 1. Findings consistent with fatty infiltration/hepatocellular disease. 2. Liver elastography: Although measurements appear to rule out compensated advanced chronic liver disease, there is statistical variability of the sampling which decreases accuracy. REFERENCE: Society of Radiologists in Ultrasound Liver Stiffness Thresholds (2020): LIVER STIFFNESS THRESHOLDS: *Liver Stiffness equal or less than 1.3 m/s: High probability of being normal. *Liver Stiffness less than 1.7 m/s: In the absence of other known clinical signs, rules out compensated advanced chronic liver disease. *Liver Stiffness 1.7-2.1 m/s: Suggestive of compensated advanced chronic liver disease but need further test for confirmation. *Liver Stiffness over 2.1 m/s: Rules in compensated advanced chronic liver disease. *Liver Stiffness over 2.4 m/s: Suggestive of clinically significant portal hypertension. QUALITY OF DATA SET: *IQR/Median value equal or less than 0.15 implies a quality data set. *IQR/Median value over 0.15 implies a poor quality data set. SIGNIFICANT CHANGE FROM PRIOR EXAM: Significant change if liver stiffness measurement is 10% or greater from prior exam. OTHER CONSIDERATIONS: The stage of liver fibrosis may be overestimated in the setting of acute hepatitis, liver inflammation, elevated liver function tests, hepatic vascular congestion, obstructive cholestasis, non-fasting state, and infiltrative diseases such as amyloidosis and lymphoma. In some patients with NAFLD, the liver stiffness thresholds for compensated advanced chronic liver disease may be lower. In causes other than viral hepatitis and NAFLD, liver stiffness thresholds are not well established.
== END 2022-12-21 07:57 | disposition home or self-care (01) ==
LOC: HO.US 07:56
PROVIDERS: Visit Provider Physician Assistant Surgical
DX: E66.9 Obesity, unspecified (principal); R73.03 Prediabetes; I10 Essential (primary) hypertension
CPT/HCPCS: 71046; 76705; 76981

== ENCOUNTER 2022-12-27 10:21 | Outpatient (REF) | payer OTHER, SELFPAY ==
--- NOTE | ~2022-12-27 | FL_ITS ---
EXAMINATION: XR FLUOROSCOPY UPPER GI WITH AIR CLINICAL INFORMATION: Obesity. COMPARISON: None available. TECHNIQUE: Routine upper GI air-contrast study was performed in upright and lying position. FINDINGS: Following oral administration of thick barium and effervescent granules there is normal propagation of bolus from the oral cavity through the pharynx, esophagus into stomach without any evidence of obstruction, narrowing or stricture. On placing patient supine and prone lying, the course, caliber and peristalsis of stomach, duodenal bulb and the CBD is normal. The mucosal pattern of the stomach and the duodenum is normal. There is evidence of previous cholecystectomy. FLUOROSCOPY TIME: 1.3 minutes DOSE AREA PRODUCT: 28.82 uGy-m2 (microgray-meter squared) FL/FL upper GI w air IMPRESSION: Unremarkable upper GI air-contrast study.
== END 2022-12-27 10:22 | disposition home or self-care (01) ==
LOC: HO.XRAY 10:21
PROVIDERS: Visit Provider Physician Assistant Surgical
DX: E66.9 Obesity, unspecified (principal); R73.03 Prediabetes; I10 Essential (primary) hypertension
CPT/HCPCS: 74246

== ENCOUNTER → 2022-12-27 10:22 | Outpatient (BNV) | payer OTHER, SELFPAY | PROVIDERS: Visit Provider Radiology Diagnostic Radiology | DX: E66.9 Obesity, unspecified (principal) | CPT/HCPCS: 74246 ==

== ENCOUNTER 2023-01-28 15:39 | Outpatient (AMB) | payer OTHER, SELFPAY ==
--- NOTE | 2023-01-28 15:23 | MHC.AMNUTRGE ---
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 She reports she is not consistent with her nutrition plan because it upsets her stomach - gas, stomach pain. chicken, or steak, fish but not often. eats vegetables, no rice/carbs. is happy with this. 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 Forgets to eat, feels there is no time to exercise. pt states , diet and exercise is veyr hard for me so thats why i went with the bariatric surgery option instead Exercise: none SWL online classes: completed. didn't review Dietary counseling reduction Diagnosis Nutrition problem #1 overweight/obesity As related to (etiology) #1 excess energy intake and physical inactivity As evidenced by (sign/symptom) #1 high BMI Monitoring/Goals Nutrition problem monitoring total energy intake, level of knowledge/skill, total PRO intake, total CHO intake and weight Outcome progress verbalized understanding Learning/Education Readiness to learn good Stages of change action Educational materials provided Yes Most Recent Diabetes Results: No Data to Display [facility] Surgical History Hx laparoscopic cholecystectomy Hx of breast augmentation Hx of section Hx of cosmetic plastic surgery Family History Mother Heart disease Father Kidney disease Hypertension Diabetes Sister Hypertension Brother Hypertension Diabetes Son No problems noted. Daughter No problems noted. Daughter No problems noted. Social History Alcohol intake: never Patient Tobacco Use Status: Never used Tobacco Assessment & Plan Assessment & Plan (1) Obesity (BMI 30-39.9): Code(s): E66.9 - Obesity, unspecified Patient Instructions: If pt continues with SWL, will need more education about post op diet recommendation and expectations. I expressed my concern that she may not be able to prioritize her nutrition and hydration post op. She wishes to speak to Linda ARRIOLA Telehealth Telehealth Location of provider rendering services: other (home address) Location of patient: address on file Patient Identification confirmed using: Name, : Yes Telehealth method: voice only Patient verbally consented to treatment: Yes Patient verbally consented to billing insurance company: Yes Patient informed of any privacy concerns related to visit: Yes Minutes spent on Phone/Video with Pt.: 20 Coding Level of Care Code Nutr Indiv Intake (10635) Diagnoses Obesity (BMI 30-39.9) E66.9 Time Spent (min) 20
== END 2023-01-28 15:52 | disposition home or self-care (01) ==
LOC: HO.HBS 15:39
PROVIDERS: Visit Provider Dietitian, Registered
DX: E66.9 Obesity, unspecified (principal)

== ENCOUNTER → 2023-01-28 15:39 | Outpatient (BNVA) | payer OTHER, SELFPAY | PROVIDERS: Visit Provider Dietitian, Registered | DX: E66.9 Obesity, unspecified (principal) | CPT/HCPCS: 97802 ==

== ENCOUNTER 2023-03-24 13:08 | Outpatient (AMB) | payer OTHER, SELFPAY ==
--- NOTE | 2023-03-24 13:10 | MHC.OFFVISWM ---
Intake VS Expanded 03/24/23 13:21 BP 105/69 Blood Pressure Location Rt brachial Blood Pressure Position Sitting Pulse 98 Pulse Source Pulse Oximeter Temp 97.9 F Temperature Source Temporal Artery Scan Pulse Oximetry 98 Oxygen Delivery Method Room Air Height 5 ft 1 in Weight 189 lb 9.6 oz BMI 35.8 Body Fat % 43.1 Body Fat Mass 81.8 Fat Free Mass 107.8 Visceral Fat Rating 12.0 Body Water % 40.5 Body Water Mass 76.8 Muscle Mass/Score 102.2 Basal Metabolic Rate/Score 1,503 Intake Visit Reasons: (OV) F/U SWL Allergies Penicillins [PCN] Allergy (Verified 03/24/23 13:15) Rash Medication List - Last Reconciled 03/24/23 by ZEINAB Santana olmesartan-hydrochlorothiazide 20-12.5 mg 1 tab PO DAILY HPI HPI Comments History of Present Illness Details The patient is a pleasant 52 year old female who returns to the clinic for pre-operative surgical weight loss management.? They were last seen in the office on 01/28/2023, recorded weight at that time was 191 pounds.? Today's weight is 189.6 pounds and BMI is 35.8.? There has been a weight loss of 8.2 pounds since initiating the surgical weight loss program on 10/14/2022 with a total body weight loss of 4.14 %. Dealing with personal/family stress at home. Continues to work many hours. Pre op work up completed as follows: SWL classes:? 01/04 BH appts: cleared 12/14? RD appts: needs additional f/u Labs: LFTs mildly elevated, low vit A/D H. pylori: 11/01 negative CXR: 12/21, unremarkable EKG:?Normal sinus rhythm with sinus arrhythmia; Normal ECG ABD U/S: 12/21, findings consistent with fatty infiltration/hepatocellular disease. UGI: 12/27, unremarkable Current meal plan includes: 2 Pure Protein shakes (HALF scoop in 8oz low fat unsweetened almond milk each) at 8am-10am and 2pm-4pm 2 Atkins or Celebrate protein bars at 11am-1pm and 8pm-10pm Dinner at 6pm (7 forks of protein and 7 forks of salad/vegetables) Pt reports she has been purchasing some Premier premade shakes instead of powder, was getting gas pains. Current exercise plan includes: none, having a lot of sciatic pain, has a herniated disc in back, does not want surgery for this [facility] Surgical History Hx laparoscopic cholecystectomy Hx of section Hx of cosmetic plastic surgery Hx of breast augmentation Family History Mother Heart disease Father Kidney disease Hypertension Diabetes Sister Hypertension Brother Hypertension Diabetes Son No problems noted. Daughter No problems noted. Daughter No problems noted. Social History Alcohol intake: never Patient Tobacco Use Status: Never used Tobacco Assessment & Plan Assessment & Plan (1) Obesity: Code(s): E66.9 - Obesity, unspecified (2) Prediabetes: Code(s): R73.03 - Prediabetes (3) Hypertension: Code(s): I10 - Essential (primary) hypertension Plan Will adjust meal plan to account for pt's preference for premade shakes. 8-10am Premier shake 11am-1pm Celebrate or Atkins bar 2-4pm bar 6pm dinner- 7 forks protein, 7 forks vegetables Discussed the importance of exercise for roasterman weight management. In addition we spent a good portion of the visit discussing the many changes needed postop, both immediately and roasterman, that will be required if pt wants to keep weight off. Needs followup with RD for clearance- scheduled Apr 06. RTC 4 weeks to see me (will add pt to cancellation list to see sooner after Apr 06 if something becomes available.) Patient is obese and is not considered stable at this time. I spent a total of 30 minutes reviewing/updating records, examining the patient and counseling the patient on weight management as detailed above. Coding Level of Care Code Est Pt Level 4 (17119) Diagnoses Obesity E66.9 Prediabetes R73.03 Hypertension I10
--- NOTE | 2023-03-24 13:10 | MHC.OFFVISWM ---
Intake VS Expanded 03/24/23 13:21 BP 105/69 Blood Pressure Location Rt brachial Blood Pressure Position Sitting Pulse 98 Pulse Source Pulse Oximeter Temp 97.9 F Temperature Source Temporal Artery Scan Pulse Oximetry 98 Oxygen Delivery Method Room Air Height 5 ft 1 in Weight 189 lb 9.6 oz BMI 35.8 Body Fat % 43.1 Body Fat Mass 81.8 Fat Free Mass 107.8 Visceral Fat Rating 12.0 Body Water % 40.5 Body Water Mass 76.8 Muscle Mass/Score 102.2 Basal Metabolic Rate/Score 1,503 Intake Visit Reasons: (OV) F/U SWL Allergies Penicillins [PCN] Allergy (Verified 03/24/23 13:15) Rash PFSH Surgical History Hx laparoscopic cholecystectomy Hx of section Hx of cosmetic plastic surgery Hx of breast augmentation Family History Mother Heart disease Father Kidney disease Hypertension Diabetes Sister Hypertension Brother Hypertension Diabetes Son No problems noted. Daughter No problems noted. Daughter No problems noted. Social History Alcohol intake: never Patient Tobacco Use Status: Never used Tobacco Coding
[2023-03-24 13:21] VITALS: BP 105/69; PULSE 98; TEMP 36.6; O2SAT 98; BMI 35.8
== END 2023-03-24 13:53 | disposition home or self-care (01) ==
PROVIDERS: Visit Provider Physician Assistant Surgical
DX: E66.9 Obesity, unspecified (principal); Z68.35 Body mass index [BMI] 35.0-35.9, adult; R73.03 Prediabetes; I10 Essential (primary) hypertension
CPT/HCPCS: 99214

== ENCOUNTER → 2023-03-24 13:08 | Outpatient (BNVA) | payer OTHER, SELFPAY | PROVIDERS: Visit Provider Physician Assistant Surgical | DX: E66.9 Obesity, unspecified (principal); R73.03 Prediabetes; I10 Essential (primary) hypertension; Z68.35 Body mass index [BMI] 35.0-35.9, adult | CPT/HCPCS: 99212 ==

== ENCOUNTER → 2023-04-06 15:18 | Outpatient (BNVA) | payer OTHER, SELFPAY | PROVIDERS: PCP Internal Medicine; Visit Provider Dietitian, Registered | DX: E66.9 Obesity, unspecified (principal) | CPT/HCPCS: 97803 ==

== ENCOUNTER 2023-05-19 10:36 | Outpatient (AMB) | payer OTHER, SELFPAY ==
--- NOTE | 2023-05-19 10:49 | A.OFFVIS_ITS ---
Intake VS Expanded 05/19/23 10:53 BP 108/59 L Blood Pressure Location Rt brachial Blood Pressure Position Sitting Pulse 88 Pulse Source Pulse Oximeter Temp 96.5 F L Temperature Source Tympanic Pulse Oximetry 97 Oxygen Delivery Method Room Air Height 5 ft 1 in Weight 184 lb 9.6 oz BMI 34.9 Body Fat % 42.8 Body Fat Mass 79.0 Fat Free Mass 105.6 Visceral Fat Rating 11.0 Body Water % 40.6 Body Water Mass 75.0 Muscle Mass/Score 100.4 Intake Visit Reasons: (OV) F/U SWL Allergies Penicillins [PCN] Allergy (Verified 05/19/23 10:54) Rash Medication List - Last Reconciled 05/19/23 by ZEINAB Santana olmesartan-hydrochlorothiazide 20-12.5 mg 1 tab PO DAILY HPI HPI Comments History of Present Illness Details The patient is a pleasant 53 year old female who returns to the clinic for pre-operative surgical weight loss management.? They were last seen in the office on 04/06/2023, recorded weight at that time was 187 pounds. Today's weight is 184.6 pounds and BMI is 34.9.? There has been a weight loss of 13.4 pounds since initiating the surgical weight loss program on 10/14/2022 with a total body weight loss of 6.67 %. Pt reports she has been doing better with adherence to meal plan. is offering a lot of support. She is going away Jun 14- on vacation. Hoping for surgery in mid June during her school vacation week. Pre op work up completed as follows: SWL classes:? 01/04 BH appts: cleared 12/14? RD appts: cleared 04/06 Labs: LFTs mildly elevated, low vit A/D H. pylori: 11/01 negative CXR: 12/21, unremarkable EKG:?Normal sinus rhythm with sinus arrhythmia; Normal ECG ABD U/S: 12/21, findings consistent with fatty infiltration/hepatocellular disease. UGI: 12/27, unremarkable Current meal plan includes: 2 Pure Protein shakes (HALF scoop in 8oz low fat unsweetened almond milk each) at 8am-10am and 2pm-4pm 2 Atkins or Celebrate protein bars at 11 am-1pm and 8pm-10pm Dinner at 6pm (7 forks of protein and 7 forks of salad/vegetables) Current exercise plan includes: tries to walk 30-45min 3x/week after school PFSH Surgical History Hx laparoscopic cholecystectomy Hx of section Hx of cosmetic plastic surgery Hx of breast augmentation Family History Mother Heart disease Father Kidney disease Hypertension Diabetes Sister Hypertension Brother Hypertension Diabetes Son No problems noted. Daughter No problems noted. Daughter No problems noted. Social History Alcohol intake: never Patient Tobacco Use Status: Never used Tobacco Physical Exam Vital Signs: Last Vital Signs BP 108/59 L 05/19/23 10:53 Assessment & Plan Assessment & Plan (1) Obesity: Code(s): E66.9 - Obesity, unspecified (2) Prediabetes: Code(s): R73.03 - Prediabetes (3) Hypertension: Code(s): I10 - Essential (primary) hypertension Plan Pt has completed all preop testing and shown success in last few visits with weight loss. Will transfer care to Dr. Adams for consideration of surgery. Patient is obese and is not considered stable at this time. I spent a total of 30 minutes reviewing/updating records, examining the patient and counseling the patient on weight management as detailed above. Coding Level of Care Code Est Pt Level 4 (90398) Diagnoses Obesity E66.9 Prediabetes R73.03 Hypertension I10
[2023-05-19 10:53] VITALS: BP 108/59; PULSE 88; TEMP 35.8; O2SAT 97; BMI 34.9
== END 2023-05-19 11:17 | disposition home or self-care (01) ==
PROVIDERS: PCP Internal Medicine; Visit Provider Physician Assistant Surgical
DX: E66.9 Obesity, unspecified (principal); Z68.34 Body mass index [BMI] 34.0-34.9, adult; R73.03 Prediabetes; I10 Essential (primary) hypertension
CPT/HCPCS: 99213

== ENCOUNTER → 2023-05-19 10:36 | Outpatient (BNVA) | payer OTHER, SELFPAY | PROVIDERS: PCP Internal Medicine; Visit Provider Physician Assistant Surgical | DX: E66.9 Obesity, unspecified (principal); R73.03 Prediabetes; I10 Essential (primary) hypertension; Z68.34 Body mass index [BMI] 34.0-34.9, adult | CPT/HCPCS: 99212 ==

== ENCOUNTER 2023-06-13 08:29 | Outpatient (AMB) | payer OTHER, SELFPAY ==
--- NOTE | 2023-06-13 13:44 | MHC.OFFVISWM ---
Intake VS Expanded 06/13/23 13:46 Height 5 ft 1 in Weight 180 lb BMI 34.0 Intake Visit Reasons: TV Consult/Transfer Linda Allergies Penicillins [PCN] Allergy (Verified 06/13/23 13:44) Rash Medication List - Last Reconciled 06/13/23 by Mega Cristobal MD olmesartan-hydrochlorothiazide 20-12.5 mg 1 tab PO DAILY HPI TV Consult/Transfer Linda HPI Details Start time: 1.30pm, End time: 2.12pm ?I spent 37 minutes speaking with the patient on the phone plus an additional 5 minutes reviewing and updating records for a total of 42 minutes HPI Comments History of Present Illness Details Overall weight loss: 11.6lbs, or 6.05% TBWL Is doing one Premier premade protein shake, 2 protein bars Elevation (10gr), one meal (unmeasured portions) Exercise: doing treadmill x3/week PFSH Medical History (Updated 06/13/23 @ 14:02 by Mega Cristobal MD) BMI 34.0-34.9,adult Surgical History Hx laparoscopic cholecystectomy Hx of section Hx of cosmetic plastic surgery Hx of breast augmentation Family History Mother Heart disease Father Kidney disease Hypertension Diabetes Sister Hypertension Brother Hypertension Diabetes Son No problems noted. Daughter No problems noted. Daughter No problems noted. Social History Alcohol intake: never Patient Tobacco Use Status: Never used Tobacco Assessment & Plan Assessment & Plan (1) Obesity: Code(s): E66.9 - Obesity, unspecified Qualifiers: Obesity type: due to excess calories Obesity classification: adult class 1 (BMI 30 - 34.9) Serious obesity comorbidity presence: with serious comorbidity Body mass index: BMI 34.0-34.9 Qualified Code(s): E66.09 - Other obesity due to excess calories; Z68.34 - Body mass index [BMI] 34.0-34.9, adult Plan: 1. Plan for lap sleeve gastrectomy. If diaphragmatic or ventral hernias are present at time of surgery, these will be repaired laparoscopically as well. Risks and complications were discussed in detail including possible conversion to an open procedure, anastomotic leak, bleeding requiring transfusion, small bowel obstruction, , DVT and pulmonary embolism, cardiac, or pulmonary complications, as cinder crusher operator complications such as anastomotic ulcer, insufficient weight loss and vitamin deficiencies. I emphasized the importance of close follow-up, adherence to instructions and good communication. 2. Please change nutritional plan to one Premier shake (mix 4oz of Premier shake with 4oz of almond milk) at 7am-9am, 3 Elevation protein bars at 10am-12pm, 1pm-3pm and 4pm-6pm, dinner at 7pm (8 fork of protein and 8 forks of salad or vegetables). If hungry please have another HALF protein bar after dinner. 3. Each shake would be drunk slowly, like coffee in a period of 2 hours. 4. Cut each bar in 4 pieces and eat each piece in 30min ?to make each bar last 2 hours. 5. I emphasized the importance of measuring accurately the food portion and measure it when serving the food in plate 6. The meal portions include 8 full-size forks of meat and 8 full-size forks of salad. You always eat the meat portion but you can replace up to 4 forks for salad/vegetables with rice, potatoes or pasta, or a fruit ?if you like. The less you do it the better weight loss will be. 7. Change treadmill with an incline of 4.0 and speed of 3.0. Increase incline by 1 every 3 min to a max incline of 10.0, stay 3min at 10.0 and then return to 4.0 and repeat same steps until 400 calories are burned, 5 days per week. Goal is to burn 2000 calories per week on exercise. 8. Buy a body composition scale and send me weight measurements weekly on Mondays Telehealth Telehealth Location of provider rendering services: practice address Location of patient: address on file Patient Identification confirmed using: Name, : Yes Telehealth method: voice only Patient verbally consented to treatment: Yes Patient verbally consented to billing insurance company: Yes Patient informed of any privacy concerns related to visit: Yes Minutes spent on Phone/Video with Pt.: 42 Coding Level of Care Code Tele Est Pt Level 4 (73088) Diagnoses Class 1 obesity due to excess calories with serious comorbidity and body mass index (BMI) of 34.0 to 34.9 in adult E66.09; Z68.34 Obesity type: due to excess calories Obesity classification: adult class 1 (BMI 30 - 34.9) Serious obesity comorbidity presence: with serious comorbidity Body mass index: BMI 34.0-34.9 Time Spent (min) 42
[2023-06-13 13:46] VITALS: BMI 34.0
== END 2023-06-13 14:13 | disposition home or self-care (01) ==
LOC: HO.HBS 08:29
PROVIDERS: PCP Internal Medicine; Visit Provider Surgery
DX: E66.09 Other obesity due to excess calories (principal); Z68.34 Body mass index [BMI] 34.0-34.9, adult
CPT/HCPCS: 99214

== ENCOUNTER 2023-07-01 08:12 | Outpatient (AMB) | payer OTHER, SELFPAY ==
--- NOTE | 2023-07-01 12:39 | A.OFFVIS_ITS ---
Intake VS Expanded 07/01/23 12:43 Height 5 ft 1 in Weight 185 lb BMI 35.0 Body Fat % 28.4 Body Fat Mass 53.8 Fat Free Mass 135.8 Visceral Fat Rating 15 Body Water % 49.1 Body Water Mass 93 Basal Metabolic Rate/Score 1,701 Intake Visit Reasons: TV Pre Op LSG 07/12/23 Allergies Penicillins [PCN] Allergy (Severe, Verified 07/01/23 12:49) Rash, all over body Medication List - Last Reconciled 07/01/23 by Mega Cristobal MD olmesartan-hydrochlorothiazide 20-12.5 mg 1 tab PO DAILY ondansetron 4 mg PO Q12H pantoprazole 40 mg PO DAILY polyethylene glycol 3350 (Miralax) 17 grams PO DAILY sucralfate 10 mL PO BID HPI TV Pre Op LSG 07/12/23 HPI Details Start time: 12.32pm, End time: 1.07pm ?I spent 30 minutes speaking with the patient on the phone plus an additional 5 minutes reviewing and updating records for a total of 35 minutes HPI Comments History of Present Illness Details Overall weight loss: 11.9lbs, or 6.02% TBWL Nutritional plan: one Premier shake (mix 4oz of Premier shake with 4oz of almond milk) at 7am-9am, 3 Elevation protein bars at 10am-12pm, 1pm-3pm and 4pm-6pm, dinner at 7pm (8 fork of protein and 8 forks of salad or vegetables). If hungry please have another HALF protein bar after dinner. Exercise: treadmill x3/week [facility] Medical History (Updated 07/01/23 @ 10:16 by Gladys Beasley RN) Situational anxiety PONV (postoperative nausea and vomiting) HTN (hypertension) Migraines BMI 34.0-34.9,adult Surgical History (Updated 07/01/23 @ 10:12 by Gladys Beasley RN) H/O ovarian cystectomy (~2017) Hx laparoscopic cholecystectomy Hx of section Hx of cosmetic plastic surgery Hx of breast augmentation Family History Mother Heart disease Father Kidney disease Hypertension Diabetes Sister Hypertension Brother Hypertension Diabetes Son No problems noted. Daughter No problems noted. Daughter No problems noted. Social History Are you a primary career center director to a significant other at home: No Do you presently have visiting nurse or other home services: No Alcohol intake: never Patient Tobacco Use Status: Never used Tobacco Assessment & Plan Assessment & Plan (1) Obesity: Code(s): E66.9 - Obesity, unspecified Qualifiers: Obesity type: due to excess calories Obesity classification: adult clas s 1 (BMI 30 - 34.9) Serious obesity comorbidity presence: with serious comorbidity Body mass index: BMI 34.0-34.9 Qualified Code(s): E66.09 - Other obesity due to excess calories; Z68.34 - Body mass index [BMI] 34.0-34.9, adult Plan: 1. Plan for lap sleeve gastrectomy including upper GI endoscopy. All tests has been completed and reviewed and the patient is cleared for the surgery. ?If diaphragmatic or ventral hernias are present at time of surgery, these will be repaired laparoscopically as well. Risks and complications were discussed in detail including possible conversion to an open procedure, anastomotic leak, bleeding requiring transfusion, small bowel obstruction, , DVT and pulmonary embolism, cardiac, or pulmonary complications, as technology recruiter complications such as anastomotic ulcer, insufficient weight loss and vitamin deficiencies. I emphasized the importance of close follow-up, adherence to instructions and good communication. So far she has proven to be an excellent communicator and very compliant with all our directions accomplishing a great weight loss. I believe that she is an excellent candidate and she is ready. 2. Preop prescriptions were provided and explained the purpose of each one. Need to be purchased preop. Start Pantoprazole now as you get it from the pharmacy, 1 pill per day. Sucralfate and Zofran are for after surgery as needed. 3. Bowel prep: please do 7 packets ?of Miralax mixing each one with a an 8oz glass of water, crystal light, gatorade zero, or propel ?on 07/11/23 and the same amount on 07/12/23. The Miralax you begin with one packet at a time in 8oz water or crystal light, gatorade zero, or propel ?as early in the day as you can and you do them back to back until you finish them. Continue the protein shakes during? the bowel prep. 4. Needs to purchase 1oz medicine cups . 5. Needs to purchase Children's liquid Tylenol for postop pain control. 6. Avoid aspirin, motrin, Advil, Aleve, Ibuprofen, Naproxyn. Tylenol is OK. 7. She needs to purchase the Celebrate 4:1 protein shakes from the [facility]. 8. Will do basic preop blood work-up any day between Tuesday07/04/23 and Tuesday07/08/23 fasting for 12 hours and is scheduled to see the Anesthesiologist prior to the day of surgery. 9. Measure your blood pressure daily in the morning when you wake up and IF blood pressure is: Below 120/70: don't take the Olmesartan/Hydrochlorothiazide 121/71 to 130/80: take HALF Olmesartan/Hydrochlorothiazide Over 131/81: take one whole pill of Olmesartan/Hydrochlorothiazide 10. Importance of adherence to postop folllow-up and recommendations was underscored and she understands that. 11. Stop food and bars as of tomorrow 07/02/23 and continue with 4 PREMIER premade protein shakes (mix 4oz of Premier shake with 8oz almond milk) at 7am-9am, 10am-12pm, 1pm-3pm, and 4pm-6pm and one more PREMIER premade protein shake with 8oz of the Premier shake (not the whole bottle) at 7pm-9pm 12. No soups, broths or V8 13. The patient's?medical?history has been reviewed and they are considered low risk for post op DVT and therefore DVT prophylaxis is not considered necessary. Travel after surgery was reviewed. The patient has not disclosed any travel plans during the first 30 days after surgery and they have been advised that within the first 30 days after surgery any bus, plane, train or car travel over 2 hours in duration is contraindicated due to the possibility of developing blood clots from immobility. Any travel, needs to include periods of ambulation of 10 minutes in duration every 2 hours.? Patient was instructed to discuss any plans for travel during this period with their bariatric surgeon.? 14. Please take at the day of surgery the following medications: Olmesartan with Hydrochlorothiazide if the blood pressure is [id number]. See above at #9. 15. Stop any control pills and don't use them for one month after surgery 16. Absolutely no smoking or vaping, or marijuana until the surgery and for at least the first 4 weeks. Only nicotine patches are allowed. 17. Send me weight measurements on and then on the day of surgery before you go to the hospital. 18. Avoid any steroids by mouth for any reason. Let me know if someone prescribes them to you 19. These instructions supersede anything else you read in the handbook, any thing you watched in videos or classes or you were told by any other provider. If there is any conflict, you follow the above instructions and nothing else. Orders: Orders Prothrombin Time INR Today E66.9 - Obesity, unspecified, I10 - Essential (primary) hypertension, R73.03 - Prediabetes C Reactive Protein Today E66.9 - Obesity, unspecified, I10 - Essential (primary) hypertension, R73.03 - Prediabetes Comprehensive Met. Panel Today E66.9 - Obesity, unspecified, I10 - Essential (primary) hypertension, R73.03 - Prediabetes TSH reflex Free T4 Today E66.9 - Obesity, unspecified, I10 - Essential (primary) hypertension, R73.03 - Prediabetes Type and Screen Today E66.9 - Obesity, unspecified, I10 - Essential (primary) hypertension, R73.03 - Prediabetes Partial Thromboplastin Time Today E66.9 - Obesity, unspecified, I10 - Essential (primary) hypertension, R73.03 - Prediabetes Lipid Panel Today E66.9 - Obesity, unspecified, I10 - Essential (primary) hypertension, R73.03 - Prediabetes Hemoglobin A1c Today E66.9 - Obesity, unspecified, I10 - Essential (primary) hypertension, R73.03 - Prediabetes Complete Blood Count Auto Diff Today E66.9 - Obesity, unspecified, I10 - Essential (primary) hypertension, R73.03 - Prediabetes Insulin Today E66.9 - Obesity, unspecified, I10 - Essential (primary) hypertension, R73.03 - Prediabetes Medications: New sucralfate 10 mL PO BID 600 mL 2RF K21.9 - Gastro-esophageal reflux disease without esophagitis polyethylene glycol 3350 (Miralax) Mix each packet with 8oz of water, Crystal light, or Gatorade zero, or Propel and do 7 packets on 07/10/23 and another 7 packets on 07/11/23 17 grams PO DAILY 14 ea 0RF Z01.818 - Encounter for other preprocedural examination pantoprazole 40 mg PO DAILY 90 tabs 0RF K21.9 - Gastro-esophageal reflux disease without esophagitis ondansetron Only take one every 12 hours as needed if you have nausea 4 mg PO Q12H 20 tabs 0RF nausea and vomiting R11.0 - Nausea Telehealth Telehealth Location of provider rendering services: practice address Location of patient: address on file Patient Identification confirmed using: Name, : Yes Telehealth method: voice only Patient verbally consented to treatment: Yes Patient verbally consented to billing insurance company: Yes Patient informed of any privacy concerns related to visit: Yes Minutes spent on Phone/Video with Pt.: 35 Coding Level of Care Code Tele Est Pt Level 4 (16442) Diagnoses Class 1 obesity due to excess calories with serious comorbidity and body mass index (BMI) of 34.0 to 34.9 in adult E66.09; Z68.34 Obesity type: due to excess calories Obesity classification: adult class 1 (BMI 30 - 34.9) Serious obesity comorbidity presence: with serious comorbidity Body mass index: BMI 34.0-34.9 Time Spent (min) 35
[2023-07-01 12:43] VITALS: BMI 35.0
== END 2023-07-01 13:08 | disposition home or self-care (01) ==
LOC: HO.HBS 08:12
PROVIDERS: PCP Internal Medicine; Visit Provider Surgery
DX: E66.09 Other obesity due to excess calories (principal); Z68.34 Body mass index [BMI] 34.0-34.9, adult
CPT/HCPCS: 99214

== ENCOUNTER 2023-07-05 08:09 | Outpatient (REF) | payer OTHER, SELFPAY ==
[2023-07-05 09:17] LABS: MANUAL DIFF FLAG NO
[2023-07-05 10:33] LABS: Basophils Percent Auto 0.6 % (0-2); Eosinophils Absolute Auto 0.1 X10*3/uL (0.0-0.4); Eosinophils Percent Auto 2.1 % (0-4); Hematocrit 40.3 % (37.0-47.0); Hemoglobin 13.4 g/dl (12.0-16.0); Imm Gran Abs Auto 0.02 X10*3/uL (0.00-0.03); Imm Gran Pct Auto 0.4 % (0.0-0.4); Lymphocytes Absolute Auto 1.5 X10*3/uL (1.2-4.9); Mean Corpuscular HGB Conc 33.3 g/dl (31.0-35.0); Mean Corpuscular Hemoglobin 27.7 pg (27.0-33.0); Mean Corpuscular Volume 83.3 fL (80.0-98.0); Mean Platelet Volume 12.2 fL (9.4-12.3); Monocytes Absolute Auto 0.5 X10*3/uL (0.1-1.2); Monocytes Percent Auto 8.6 % (2-11); Neutrophils Absolute Auto 3.1 x10*3/uL (2.0-8.3); Neutrophils Percent Auto 59.3 % (45-73); Platelet Count 262 X10*3/uL (160-400); Red Blood Count 4.84 X10*6/uL (4.20-5.50); Red Cell Distribution Width 13.4 % (11.0-16.0); White Blood Count 5.2 X10*3/uL (4.8-10.8)
[2023-07-05 10:35] LABS: Prothrombin Time 12.4 SEC (11.1-13.3)
[2023-07-05 10:37] LABS: Partial Thromboplastin Time 34.3 SEC (26.0-36.8)
[2023-07-05 10:44] LABS: Estimated Average Glucose 108 mg/dL; Hemoglobin A1c % 5.4 % (<6.0)
[2023-07-05 11:24] LABS: Alanine Aminotransferase 26 U/L (0-31); Albumin Level 3.8 g/dL (3.5-5.0); Alkaline Phosphatase 98 U/L (39-117); Anion Gap 14 (12-20); Aspartate Amino Transferase 22 U/L (5-31); Bilirubin Total 0.8 mg/dL (0.0-1.0); Blood Urea Nitrogen 14 mg/dL (9-16); C Reactive Protein 0.37 mg/dL (< or = 0.50); Calcium 9.4 mg/dL (8.4-10.2); Carbon Dioxide 27 mmol/L (22-29); Chloride 102 mmol/L (96-108); Cholesterol 221 mg/dL (<200); Estimated Glomerular Filt Rate > 60; Glucose Random 87 mg/dL (60-115); HDL Cholesterol 44 mg/dL (>40); LDL Cholesterol Calculated 161 mg/dL (<100); Potassium 3.6 mmol/L (3.3-5.1); Sodium 139 mmol/L (135-145); Total Protein 7.4 g/dL (6.5-8.0); Triglycerides 81 mg/dL (<150)
[2023-07-05 11:36] LABS: TSH reflex Free T4 0.94 uIU/mL (0.32-4.0)
[2023-07-05 12:01] LABS: Insulin 10 uU/mL (2-29)
== END 2023-07-05 08:10 | disposition home or self-care (01) ==
LOC: HO.LAB 08:09
PROVIDERS: Surgery; Visit Provider Physician Assistant
DX: E66.9 Obesity, unspecified (principal); I10 Essential (primary) hypertension; R73.03 Prediabetes
CPT/HCPCS: 36415; 80053; 80061; 83036; 83525; 84443; 85025; 85610; 85730; 86140

== ENCOUNTER 2023-07-12 09:02 | Inpatient (IN) | payer OTHER, SELFPAY ==
[2023-07-01 10:14] VITALS: BMI 35.0
--- NOTE | 2023-07-11 09:18 | HO.ANESPROP2 ---
Documented by User: Annita Wood NP 07/11/23 09:20 HPI - Anesthesia Eval Consult details Narrative: 53yo F for Gastrectomy Sleeve,EGD,possible diaphragmatic hernia,possible ventral hernia,poss open, PMFSH Active Problems Active Problems: All Active Problems (Updated 07/01/23 @ 10:16 by Gladys Beasley RN) Obesity (Acute) Prediabetes (Acute) Hypertension (Acute) BMI 34.0-34.9,adult (Acute) Past Medical History Medical History Situational anxiety PONV (postoperative nausea and vomiting) HTN (hypertension) Migraines BMI 34.0-34.9,adult Family History Family History Mother Heart disease Father Kidney disease Hypertension Diabetes Sister Hypertension Brother Hypertension Diabetes Son No problems noted. Daughter No problems noted. Daughter No problems noted. Surgical History Surgical History H/O ovarian cystectomy (~2017) Hx laparoscopic cholecystectomy Hx of section Hx of cosmetic plastic surgery Hx of breast augmentation History of Problems with Anesthesia: Yes (PONV) Social History Social History Are you a primary manager home healthcare to a significant other at home: No Do you presently have visiting nurse or other home services: No Alcohol intake: never Patient Tobacco Use Status: Never used Tobacco Use of substances other than those prescribed or required for medical reasons: No Have you been hit, kicked, punched, or otherwise hurt by someone within the past year? If so, by whom?: No Are you DNR?: No Advance Directives: No Advance Directives Information Provided: Yes Advance Directives on File: No Recently lost weight without trying: No Nutrition Risks: No Nutritional Risk Patient : No FDLMP: 2 months ago : No Poor oral hygiene: No Meds Allergies Allergy/AdvReac Type Severity Reaction Status Date / Time Penicillins [PCN] Allergy Severe Rash, all Verified 07/01/23 12:49 over body Home Medications Medication Instructions Recorded Confirmed Last Taken Type olmesartan 20 1 tab PO DAILY 09/20/22 07/01/23 Unknown History mg-hydrochlorothiazide 12.5 mg tablet Exam Height,Weight and Vital Signs: Height 5 ft 1 in Weight 83.915 kg Pertinent Lab Results Pertinent Lab Results: Laboratory Tests 07/05/23 09:10 Blood Type A Positive Antibody Screen NEGATIVE Laboratory Tests 07/05/23 09:14 WBC 5.2 Hgb 13.4 Hct 40.3 Plt Count 262 Sodium 139 Potassium 3.6 Chloride 102 Carbon Dioxide 27 BUN 14 Creatinine 0.76 Narrative Narrative: EKG 10/2022 Vent. Rate : 066 BPM Atrial Rate : 066 BPM P-R Int : 140 ms QRS Dur : 084 ms QT Int : 428 ms P-R-T Axes : 028 026 021 degrees QTc Int : 448 ms Normal sinus rhythm with sinus arrhythmia Normal ECG When compared with ECG of 05-FEB-2022 12:23, No significant change was found Assessment and Plan Assessment Anesthesia Assessment: Chart Reviewed Final Anesthetic Review History of Problems with Anesthesia: Yes (PONV) Documented by User: Oksana Pardo MD 07/12/23 10:20 [facility] Active Problems Active Problems: All Active Problems (Updated 07/12/23 @ 10:00 by Oksana Pardo MD) Obesity (Acute). Denies MEDARDO Prediabetes (Acute) Hypertension (Acute) - Took medication this morning BMI 35 Migraines PONV Past Medical History Medical History Situational anxiety PONV (postoperative nausea and vomiting) HTN (hypertension) Migraines BMI 34.0-34.9,adult Family History Family History Mother Heart disease Father Kidney disease Hypertension Diabetes Sister Hypertension Brother Hypertension Diabetes Son No problems noted. Daughter No problems noted. Daughter No problems noted. Family history of problems with anesthesia: No Surgical History Surgical History H/O ovarian cystectomy (~2017) Hx laparoscopic cholecystectomy Hx of section Hx of cosmetic plastic surgery Hx of breast augmentation History of Problems with Anesthesia: Yes (PONV) Social History Social History Are you a primary manager home healthcare to a significant other at home: No Do you presently have visiting nurse or other home services: No Alcohol intake: never Patient Tobacco Use Status: Never used Tobacco Use of substances other than those prescribed or required for medical reasons: No Have you been hit, kicked, punched, or otherwise hurt by someone within the past year? If so, by whom?: No Are you DNR?: No Advance Directives: No Advance Directives Information Provided: Yes Advance Directives on File: No Recently lost weight without trying: No Nutrition Risks: No Nutritional Risk Patient : No FDLMP: 2 months ago : No Poor oral hygiene: No Meds Allergies Allergy/AdvReac Type Severity Reaction Status Date / Time Penicillins [PCN] Allergy Severe Rash, all Verified 07/01/23 12:49 over body Home Medications Medication Instructions Recorded Confirmed Last Taken Type olmesartan 20 1 tab PO DAILY 09/20/22 07/01/23 Unknown History mg-hydrochlorothiazide 12.5 mg tablet Exam Height,Weight and Vital Signs: Height 5 ft 1 in Weight 83.915 kg Vital Signs Temp Pulse Resp BP Pulse Ox O2 Del Method 07/12/23 09:10 99.0 F 65 16 119/76 96 Room Air Pertinent Lab Results Pertinent Lab Results: Laboratory Tests 07/05/23 09:10 Blood Type A Positive Antibody Screen NEGATIVE Laboratory Tests 07/05/23 09:14 WBC 5.2 Hgb 13.4 Hct 40.3 Plt Count 262 Sodium 139 Potassium 3.6 Chloride 102 Carbon Dioxide 27 BUN 14 Creatinine 0.76 Airway Mallampati Class: II TM Dist: >3cm Neck ROM: Full Loose/Missing/Broken Teeth: No (Denies broken, loose, missing teeth) Heart: RRR Lungs: CTAB Assessment and Plan Assessment Anesthesia Assessment: Anesthesia Plan Discussed and Chart Reviewed Final Anesthetic Review Family History of Problems with Anesthesia: No History of Problems with Anesthesia: Yes (PONV) NPO: Yes ASA Class: III Final Preanesthetic Review: No Changes in Pt Med Stat, Meds/Allgs Chart Reviewed, Consent Obtained/Reviewed and Anes Risks/Benef Reviewed Patient Risk: Intermediate Procedure Risk: Intermediate Assessment/Block/Sedation in SS: Assess/Block/Sedation-SS Anesthetic Plan Anesthetic Plan: GA Disposition: Standard PACU and Inp. Admit - Standard Bed
[2023-07-12] VITALS (22 sets, daily range): BP systolic 119–161; BP diastolic 63–82; PULSE 56–78; RESP 14–22; TEMP 36.2–37.2; O2SAT 93–98
--- OUTSIDE RECORDS SUMMARY | 2023-07-12 09:20 | XMS_ITS | Continuity of Care Document ---
Author Name Unknown Organization [facility] Address [address] [place] [address]- Care Team Providers Care Die Turner Name Role Phone Leilani ELLIS, Breezy Gerard Primary Care Physician Encounter [facility] Date([facility]): 01/19/21 - 02/18/21 [facility] [address] [place] [id number] Allergies, Adverse Reactions, Alerts Substance Reaction Severity Status penicillin rash Moderate Active Immunizations Given and Recorded Vaccine Date Status Refusal Reason influenza virus vaccine, inactivated 05/04/17 Paul rded influenza virus vaccine, inactivated 08/11/16 Paul rded influenza virus vaccine, inactivated 1 05/13/14 Gi liz influenza virus vaccine, inactivated 2 08/07/12 Gi liz influenza virus vaccine, inactivated 3 02/12/09 Gi liz tetanus/diphtheria/pertussis, acel(Tdap) 05/04/17 Recorded tetanus/diphtheria/pertussis, acel(Tdap) 4 12/14/12 Given hepatitis B adult vaccine 06/27/13 Given hepatitis B adult vaccine 01/15/13 Given hepatitis B adult vaccine 5 12/14/12 Given Tetanus-Diphth Toxoids, Adult (oldterm) 6 08/23/08 Given 1Result Comment: [05/13/2014] Fluvirax [id number] 2Admin Note: vis given 11/29/11 3Admin Note: VIS GIVEN-DATE12/21/07 4Admin Note: VIS given 06/22/11 5Admin Note: VIS 2011 GIVEN 6Admin Note: vis given Medications naproxen 375 mg oral tablet 375 mg, 1, tablet, By Mouth, 2 times a day, for pain. take with food., # 30 tablet, Refills 0, Tot.Refills 0, Maintenance, 01/19/21 17:26:00 EDT, Route to Pharmacy Electronically, [facility]/pharmacy #[id number], Partial fill upon patient request if the prescript... Start Date: 01/19/21 Status: Ordered Problem List Condition Effective Dates Status Health Status Inform ant Hepatitis B immune(Confirmed) 1 Active Hyperlipidemia(Confirmed) Active Breast enlargement(Confirmed) Active Metabolic syndrome(Confirmed) Active Migraines(Confirmed) Active Class 2 obesity with body ma ss index (BMI) of 35.0 to 35.9 in adult(Confirmed) Active Panniculectomy(Confirmed) Active Colon cancer screening(Confirmed) Active Trochanteric bursitis(Confirmed) 12/04/07 Active 1immune on lab dated 12/14/2012 Social History Social History Type Response Smoking Status Never smoker entered on: 09/05/14 Sex
--- OUTSIDE RECORDS SUMMARY | 2023-07-12 09:20 | XMS_ITS | Continuity of Care Document ---
Author Name Unknown Organization [facility] Address [address] [place] [address]- Care Team Providers Care Community Youth Secretary Name Role Phone Genaro ELLIS, Diana Primary Care Physician Encounter [facility] Date(s): 11/22/22 - 12/22/22 [facility] [address] [place] [id number] Allergies, Adverse Reactions, Alerts Substance Reaction Severity [...] 6 08/23/08 Given 1Result Comment: [05/13/2014] Fluvirax [id number] 2Admin Note: vis given 11/29/11 3Admin Note: VIS GIVEN-DATE12/21/07 4Admin Note: VIS given 06/22/11 5Admin Note: VIS 2011 GIVEN 6Admin Note: vis given Medications acetaminophen 500 mg oral tablet 2 tablet = 1,000 mg, By Mouth, 3 times a day, PRN Pain , Moderate, # 100 tablet, 2 Refills, Acute 02/01/23 10:44:00 EDT, 12/01/22 10:43:00 EDT, Tablet, [id number], Partial fill upon patient request if the prescription is for a schedule II opio... Start Date: 12/01/22 Stop Date: 02/01/23 Status: Ordered Blood Pressure Monitor Blood Pressure Monitor, See Instructions, # 1 each, Refills 0, Tot. Refills 0, Maintenance, Check BP 3x Weekly, 2 Hours After Morning Medications and Document Dx: HTN (I10); Losartan 25mg Duration: 1Year, 11/16/21 15:52:00 EDT, Supply Start Date: 11/16/21 Status: Ordered cetirizine 10 mg oral tablet 1 tablet = 10 mg, By Mouth, Daily, # 90 tablet, 3 Refills, Maintenance, 06/10/22 10:24:00 EST, Tablet, [id number], Partial fill upon patient request if the prescription is for a schedule II opioid drug., 155, cm, 06/10/22 9:47:00 EST, Height Start Date: 06/10/22 Stop Date: 06/05/23 Status: Ordered cyclobenzaprine 5 mg oral tablet 1 tablet = 5 mg, By Mouth, 3 times a day, PRN Headache, # 42 tablet, 0 Refills, Maintenance, 11/19/22 10:16:00 EDT, [id number], Partial fill upon patient request if the prescription is for a schedule II opioid drug., 155, cm, 11/19/22 9:32:00... Start Date: 11/19/22 Stop Date: 12/03/22 Status: Ordered diclofenac 1% topical gel 1 application, Topically, 4 times a day, # 100 Gm, 0 Refills, Maintenance, 10/04/22 18:36:00 EDT, Gel, [id number], Partial fill upon patient request if the prescription is for a schedule II opioid drug., 155, cm, 10/04/22 18:23:00 EDT, Height Start Date: 10/04/22 Status: Ordered Excedrin Extra Strength oral tablet 2 tablet, By Mouth, Every 6 hours, PRN for headache, # 50 tablet, 1 Refills, Maintenance, 02/08/22 16:01:00 EDT, Tablet, [id number], Partial fill upon patient request if the prescription is for a schedule II opioid drug., 2 tablet By Mouth Peace... Start Date: 02/08/22 Status: Ordered Flonase 50 mcg/inh nasal spray 1 sprays, Nares, Both, 2 times a day, # 16 Gm, 3 Refills, Maintenance, 04/19/22 15:38:00 EST, [place], [facility]/pharmacy #[id number], Partial fill upon patient request if the prescription is for a schedule II opioid drug., 1 sprays Nares, Both 2 times a day, 155,... Start Date: 04/19/22 Status: Ordered gabapentin 100 mg oral capsule See Instructions, Take 1 cap By Mouth Daily at Bedtime for 1 Week, then 1 cap By Mouth Twice Daily for 1 Week, then 1 cap By Mouth Three Times Daily thereafter, # 90 capsule, Refills 3, Tot. Refills 3, Maintenance, 12/01/22 10:45:00 EDT, Instructions... Start Date: 12/01/22 Status: Ordered hydrochlorothiazide-olmesartan 12.5 mg-20 mg oral tablet 1 tablet, By Mouth, Daily, 0 Refills, Maintenance, 09/22/22 15:22:00 EDT, Partial fill upon patientrequest if the prescription is for a schedule II opioid drug. Start Date: 09/22/22 Status: Ordered hydrochlorothiazide-olmesartan 12.5 mg-20 mg oral tablet 1 tablet, By Mouth, Daily, # 90 tablet, 11 Refills, Maintenance, 10/18/22 15:46:00 EDT, [facility]/pharmacy #[id number], 1 tablet By Mouth Daily,x90 days, 155, cm, 10/18/22 15:26:00 EDT, Height Start Date: 10/18/22 Stop Date: 10/02/25 Status: Ordered lidocaine 5% topical ointment 1 application, Topically, 3 times a day, PRN Pain , Moderate, # 50 Gm, 0 Refills, Maintenance, 10/04/22 18:35:00 EDT, Ointment, [facility]/pharmacy #[id number], Partial fill upon patient request if the prescription is for a schedule II opioid drug., 1 application... Start Date: 10/04/22 Status: Ordered nitroglycerin 0.3 mg sublingual tablet 1 tablet = 0.3 mg, Sublingual, Every 5 minutes, PRN as needed for chest pain, not to exceed 3 doses/15 min--if pain persists, seek medical attention, # 100 tablet, 0 Refills, Maintenance, 12/25/21 10:42:00 EDT, Tablet, Partial fill upon patient reques... Start Date: 12/25/21 Status: Ordered nortriptyline 10 mg oral capsule 1, capsule, By Mouth, Daily at bedtime, FOR HEADACHE PREVENTION., # 30 capsule, Refills 5, Maintenance, 11/17/22 23:10:00 EDT, Route to Pharmacy Electronically, [id number], 155, cm, 10/18/22 15:26:00 EDT, Height Start Date: 11/17/22 Status: Ordered omeprazole 20 mg oral delayed release tablet 1 tablet = 20 mg, By Mouth, Daily, # 90 tablet, 1 Refills, Maintenance, 06/10/22 10:49:00 EST, EC Tablet, [facility]/pharmacy #[id number], Partial fill upon patient request if the prescription is for a schedule II opioid drug., 155, cm, 06/10/22 9:47:00 EST, Height Start Date: 06/10/22 Stop Date: 12/07/22 Status: Ordered Plantar Fasciitis Brace for right foot Plantar Fasciitis Brace for right foot, See Instructions, # 1 each, Refills 1, Tot. Refills 1, Maintenance, Plantar Fasciitis Brace for right foot Dx: Plantar Fasciitis (M72.2); Duration: Lifetime. Use at bedtime, off during day., 10/19/22 8:31:00... Start Date: 10/19/22 Status: Ordered SUMAtriptan 50 mg oral tablet 1 tablet = 50 mg, By Mouth, Once, PRN as needed for migraine headache, may repeat dose after 2 hours up to a maximum of 200 mg in 24 hours, # 9 tablet, 0 Refills, Soft Stop, 11/02/21 14:41:00 EDT, Tablet, [facility]/pharmacy #[id number], Partial fill upon patient... Start Date: 11/02/21 Status: Ordered Ventolin HFA 108 mcg/inh inhalation aerosol with adapter 1 puffs, Inhalation, 4 times a day, PRN for wheezing, # 8 Gm, 2 Refills, Maintenance, 04/23/22 9:19:00 EST, Aerosol, [id number], Partial fill upon patient request if the prescription is for aschedule II opioid drug., 155, cm, 04/19/22 15:15:0... Start Date: 04/23/22 Status: Ordered Zithromax 250 mg oral tablet 1 pack/packet, By Mouth, Once, # 6 tablet, 0 Refills, Soft Stop, 04/19/22 15:33:00 EST, Tablet, [id number], Partial fill upon patient request if the prescription is for a schedule II opioid drug., 155, cm, 04/19/22 15:15:00 EST, Height Start Date: 04/19/22 Status: Ordered Problem List Condition Confirmation Course Effective Dates Status H ealth Status Informant Abscess 1 Confirmed Active Allergic dermatitis Confirmed Active CAD (coronary artery disease) Confirmed Active Hepatitis B immune 2 Confirmed Active Hydrosalpinx Confirmed Active Hyperlipidemia Confirmed Active Breast enlargement Confirmed Active Fibroid Confirmed Active Lower abdominal pain Confirmed Active Metabolic syndrome Confirmed Active Migraines Confirmed Active Class 2 obesity with body mass index (BMI) of 35.0 to 35.9 in adult Confirmed Active Panniculectomy Confirmed Active Colon cancer screening Confirmed Active Prediabetes Confirmed Active Severe obesity (BMI 35.0-39.9) with comorbidity Confirmed Active Trochanteric bursitis Confirmed 12/04/07 Active Varicose vein of leg Confirmed Active 1Tuboovarian 2immune on lab dated 12/14/2012 Social History Social History Type Response Smoking Status Never smoker entered on: 09/05/14 Sex Patient Care team information Care Team Personnel Name: Diana Lam MD Position: [facility] Resident Member Role: PCP Address: Address: [address] [place] [address] [place] [address]- Care Team Related Persons Name: JONATHAN MUNROE Address: home [address] [place] [address] Name: NADIR VALENZUELA Address: home [address] [place] [address] Name: JONATHAN VALENZUELA Name: TANK BANKS Address: [place] [address]
--- OUTSIDE RECORDS SUMMARY | 2023-07-12 09:20 | XMS_ITS | Continuity of Care Document ---
Author Name Unknown Organization [facility] Address [address] [place] [address]- Care Team Providers Care Formula Bottler Name Role Phone Leilani ELLIS, Breezy Gerard Primary Care Physician [facility]counter [facility] Date(s): 07/05/22 - 08/04/22 [facility] [address] [place] [id number] Allergies, Adverse Reactions, Alerts Substance [...] 6 08/23/08 Given 1Result Comment: [05/13/2014] Fluvirax [id number] 2Admin Note: vis given 11/29/11 3Admin Note: VIS GIVEN-DATE12/21/07 4Admin Note: VIS given 06/22/11 5Admin Note: VIS 2011 GIVEN 6Admin Note: vis given Medications Blood Pressure Monitor Blood Pressure Monitor, See [...] 1 tablet = 5 mg, By Mouth, Daily at bedtime, PRN Headache, # 12 tablet, 0 Refills, Maintenance, 02/08/22 16:06:00 EDT, [id number], Partial fill upon patient request if the prescription is fora schedule II opioid drug., 155, cm, 02/08/22 15:09... Start Date: 02/08/22 Status: Ordered diclofenac 1% topical gel 1 application, Topically, 4 times a day, # 100 Gm, 0 Refills, Maintenance, 11/02/21 14:44:00 EDT, Gel, [id number], Partial fill upon patient request if the prescription is for a schedule II opioid drug., 155, cm, 11/02/21 14:18:00 EDT, Height Start Date: 11/02/21 Status: Ordered Excedrin Extra Strength oral tablet [...] Gm, 3 Refills, Maintenance, 04/19/22 15:38:00 EST, [place], [id number], Partial fill upon patient request if the prescription is for a schedule II opioid drug., 1 sprays Nares, Both 2 times a day, 155,... Start Date: 04/19/22 Status: Ordered hydrochlorothiazide-olmesartan 12.5 mg-20 mg oral tablet 1 tablet, By Mouth, Daily, # 60 tablet, 1 Refills, Maintenance, 06/10/22 10:41:00 EST, Tablet, [facility]/pharmacy #[id number], Partial fill upon patient request if the prescription is for a schedule II opioid drug., 1 tablet By Mouth Daily,x60 days, 155, cm, 05/30... Start Date: 06/10/22 Stop Date: 10/08/22 Status: Ordered ibuprofen 800 mg oral tablet 800 mg, 1, tablet, By Mouth, 3 times a day, PRN, # 30 tablet, Refills 0, Tot. Refills 0, Maintenance, for pain, 11/02/21 14:45:00 EDT, Route to Pharmacy Electronically, [facility]/pharmacy #[id number], Partial fill upon patient request if the prescription is for a... Start Date: 11/02/21 Status: Ordered nitroglycerin 0.3 mg sublingual tablet [...] HEADACHE PREVENTION., # 30 capsule, Refills 5, Tot. Refills 5, Maintenance, 04/13/22 15:56:00 EST, Route to Pharmacy Electronically, [facility]/pharmacy #[id number], 155, cm, 02/08/22 15:09:00 EDT, Height Start Date: 04/13/22 Status: Ordered omeprazole 20 mg oral delayed release tablet 1 tablet = 20 mg, By Mouth, Daily, # 90 tablet, 1 Refills, Maintenance, 06/10/22 10:49:00 EST, EC Tablet, [facility]/pharmacy #[id number], Partial fill upon patient request if the prescription is for a schedule II opioid drug., 155, cm, 06/10/22 9:47:00 EST, Height Start Date: 06/10/22 Stop Date: 12/07/22 Status: Ordered semaglutide 0.25 mg/0.5 mL (0.25 mg dose) subcutaneous solution = 0.25 mg, Subcutaneous Infusion, Every 7 days, for 8 week(s), take 0.25 every week for 4 weeks andthen increase to 0.5 for the next 4 weeks. in the abdomen, thigh, or upper arm If you have nausea or constipation please reach out to your PCP, # 1... Start Date: 06/22/22 Stop Date: 10/12/22 Status: Ordered SUMAtriptan 50 mg oral tablet 1 tablet = 50 mg, By Mouth, Once, PRN as needed for migraine headache, may repeat dose after 2 hours up to a maximum of 200 mg in 24 hours, # 9 tablet, 0 Refills, Soft Stop, 11/02/21 14:41:00 EDT, Tablet, [id number], Partial fill upon patient... Start Date: 11/02/21 Status: Ordered Ventolin HFA 108 mcg/inh inhalation aerosol with adapter 1 puffs, Inhalation, 4 times a day, PRN for wheezing, # 8 Gm, 2 Refills, Maintenance, 04/23/22 9:19:00 EST, Aerosol, [id number], Partial fill upon patient request if the prescription is for aschedule II opioid drug., 155, cm, 04/19/22 15:15:0... Start Date: 04/23/22 Status: Ordered Wegovy (0.25 mg dose) subcutaneous solution = 0.25 mg, Subcutaneous Infusion, Every week, for 8 week(s), take 0.25 every week for 4 weeks and then increase to 0.5 for the next 4 weeks. in the abdomen, thigh, or upper arm If you have nausea or constipation please reach out to your PCP, # 1 e... Start Date: 07/06/22 Stop Date: 10/26/22 Status: Ordered Zithromax 250 mg oral tablet [...] Metabolic syndrome Confirmed Active Migraines Confirmed Active Obese class II Confirmed Active Class 2 obesity with body [...] Care team information Care Team Personnel Name: Breezy Duke MD Position: [facility] Resident Member Role: PCP Address: Address: [address] [facility] [place] [address]- Care Team Related Persons Name: JONATHAN MUNROE Address: home [address] [place] [address] Name: NADIR VALENZUELA Address: home [address] [place] [address] Name: JONATHAN VALENZUELA Name: TANK BANKS Address: [place] [address]
--- OUTSIDE RECORDS SUMMARY | 2023-07-12 09:20 | XMS_ITS | Continuity of Care Document ---
Author Name Unknown Organization [facility] Address [address] [place] [address], [address] [place] [address]- Care Team Providers Care Military Analyst Name Role Phone Diana Lam MD Primary Care Physician [phone] Encounter [facility] Date(s): 12/10/22 - 02/02/23 [facility] [address] [place] [address] Drive, [address] [place], [place] [address] Attending Physician: Jacob Saldana MD Referring Physician: Diana Lam MD Allergies, Adverse Reactions, Alerts Substance Reaction Severity [...] 6 08/23/08 Given 1Result Comment: [05/13/2014] Fluvirax [id number] 2Admin Note: vis given 11/29/11 3Admin Note: [...] Gm, 3 Refills, Maintenance, 04/19/22 15:38:00 EST, [place], [id number], Partial fill upon patient request [...] tablet, 11 Refills, Maintenance, 10/18/22 15:46:00 EDT, [facility]/pharmacy #[id number], 1 tablet By Mouth Daily,x90 days, 155, cm, 10/18/22 15:26:00 EDT, Height Start Date: 10/18/22 Stop Date: 10/02/25 Status: Ordered lidocaine 5% topical ointment 1 application, Topically, 3 times a day, PRN Pain , Moderate, # 50 Gm, 0 Refills, Maintenance, 10/04/22 18:35:00 EDT, Ointment, [facility]/pharmacy #[id number], Partial fill upon patient request if [...] 11/17/22 23:10:00 EDT, Route to Pharmacy Electronically, [id number], 155, cm, 10/18/22 15:26:00 EDT, Height Start Date: 11/17/22 Status: Ordered omeprazole 20 mg oral delayed release tablet 1 tablet = 20 mg, By Mouth, Daily, # 90 tablet, 1 Refills, Maintenance, 06/10/22 10:49:00 EST, EC Tablet, [facility]/pharmacy #[id number], Partial fill upon patient request if [...] Refills, Soft Stop, 11/02/21 14:41:00 EDT, Tablet, [facility]/pharmacy #[id number], Partial fill upon patient... Start Date: 11/02/21 Status: Ordered Ventolin HFA 108 mcg/inh inhalation aerosol with adapter 1 puffs, Inhalation, 4 times a day, PRN for wheezing, # 8 Gm, 2 Refills, Maintenance, 04/23/22 9:19:00 EST, Aerosol, [facility]/pharmacy #[id number], Partial fill upon patient request if the prescription is for aschedule II opioid drug., 155, cm, 04/19/22 15:15:0... Start Date: 04/23/22 Status: Ordered Problem List Condition Confirmation Course [...] Team Personnel Name: Diana Lam MD Position: [facility] Resident Member Role: PCP Address: Address: [address] [place] [address] [place] [address]- Care Team Related Persons Name: JONATHAN MUNROE Address: home [address] [place] [address] Name: NADIR VALENZUELA Address: home [address] [place] [address] Name: JONATHAN VALENZUELA Name: TANK BANKS Address: [place] [address]
--- OUTSIDE RECORDS SUMMARY | 2023-07-12 09:20 | XMS_ITS | Continuity of Care Document ---
Author Name Unknown Organization [facility] Address [address] [place] [address]- Care Team Providers Care Nursing Consultant Name Role Phone Leilani ELLIS, Breezy Gerard Primary Care Physician [facility] Date(s): 07/01/21 - 07/31/21 [facility] [address] [place] [id number] Allergies, Adverse Reactions, Alerts Substance Reaction Severity [...] 6 08/23/08 Given 1Result Comment: [05/13/2014] Fluvirax [id number] 2Admin Note: vis given 11/29/11 3Admin Note: VIS GIVEN-DATE12/21/07 4Admin Note: VIS given 06/22/11 5Admin Note: VIS 2011 GIVEN 6Admin Note: vis given Medications diclofenac 1% topical gel 1 application, Topically, 4 times a day, # 100 Gm, 0 Refills, Maintenance, 06/19/21 14:59:00 EST, [place], [id number], Partial fill upon patient request if the prescription is for a schedule II opioid drug., 155, cm, 06/19/21 14:39:00 EST, Height Start Date: 06/19/21 Status: Ordered naproxen 375 mg oral tablet 375 mg, 1, tablet, By Mouth, 2 times a day, for pain. take with food., # 30 tablet, Refills 0, Tot.Refills 0, Maintenance, 01/19/21 17:26:00 EDT, Route to Pharmacy Electronically, [facility]/pharmacy #[id number], Partial fill upon patient request if the prescript... Start Date: 01/19/21 Status: Ordered SUMAtriptan 25 mg oral tablet 1 tablet = 25 mg, By Mouth, Daily, PRN for migraine headache, may repeat dose after 2 hours up to amaximum of 2. Polish label, # 9 tablet, 0 Refills, Maintenance, 07/02/21 14:18:00 EST, Tablet, [facility]/pharmacy #[id number], Partial fill upon patient request i... Start Date: 07/02/21 Status: Ordered Problem List Condition Effective Dates Status Health Status Inform ant Hepatitis B immune(Confirmed) 1 Active Hyperlipidemia(Confirmed) Active Breast enlargement(Confirmed) Active Metabolic syndrome(Confirmed) Active Migraines(Confirmed) Active Obese class II(Confirmed) Active Class 2 obesity with body ma ss index (BMI) of 35.0 to 35.9 in adult(Confirmed) Active Panniculectomy(Confirmed) Active Colon cancer screening(Confirmed) Active Trochanteric bursitis(Confirmed) 12/04/07 Active 1immune on lab dated 12/14/2012 Social History Social History Type Response Smoking Status Never smoker entered on: 09/05/14 Sex
--- OUTSIDE RECORDS SUMMARY | 2023-07-12 09:20 | XMS_ITS | Continuity of Care Document ---
Author Name Unknown Organization [facility] Address [address] [place] [address]- Care Team Providers Care Digital Forensic Analyst Name Role Phone Leilani ELLIS, Breezy Gerard Primary Care Physician Encounter [facility] Date(s): 09/08/21 - 11/18/21 [facility] [address] [place] [address]- Attending Physician: Nixon Villagomez MD Admitting Physician: Nixon Villagomez MD Allergies, Adverse Reactions, Alerts Substance Reaction [...] 6 08/23/08 Given 1Result Comment: [05/13/2014] Fluvirax [id number] 2Admin Note: vis given 11/29/11 3Admin Note: [...] EDT, Supply Start Date: 11/16/21 Status: Ordered diclofenac 1% topical gel 1 application, Topically, 4 times a day, # 100 Gm, 0 Refills, Maintenance, 11/02/21 14:44:00 EDT, Gel, [id number], Partial fill upon patient request if the prescription is for a schedule II opioid drug., 155, cm, 11/02/21 14:18:00 EDT, Height Start Date: 11/02/21 Status: Ordered ibuprofen 800 mg oral tablet 800 mg, 1, tablet, By Mouth, 3 times a day, PRN, # 30 tablet, Refills 0, Tot. Refills 0, Maintenance, for pain, 11/02/21 14:45:00 EDT, Route to Pharmacy Electronically, [id number], Partial fill upon patient request if the prescription is for a... Start Date: 11/02/21 Status: Ordered losartan 25 mg oral tablet 25 mg, 1, tablet, By Mouth, Daily, # 30 tablet, Refills 1, Tot. Refills 1, Maintenance, 11/13/21 15:46:00 EDT, Route to Pharmacy Electronically, [id number], Partial fill upon patient request if the prescription is for a schedule II opioid drug... Start Date: 11/13/21 Status: Ordered SUMAtriptan 50 mg oral tablet 1 tablet = 50 mg, By Mouth, Once, PRN as needed for migraine headache, may repeat dose after 2 hours up to a maximum of 200 mg in 24 hours, # 9 tablet, 0 Refills, Soft Stop, 11/02/21 14:41:00 EDT, Tablet, [id number], Partial fill upon patient... Start Date: 11/02/21 Status: Ordered Problem List Condition Effective Dates [...]
--- OUTSIDE RECORDS SUMMARY | 2023-07-12 09:21 | XMS_ITS | Continuity of Care Document ---
Author Name Unknown Organization [facility] Address [address] [place] [address]- Care Team Providers Care Valve Liner Rubber Name Role Phone Leilani ELLIS, Breezy Gerard Primary Care Physician [facility] Date[facility]s): 04/01/21 - 07/16/21 [facility] [address] [place] [id number] Attending Physician: Christian Sotomayor MD Admitting Physician: Christian Sotomayor MD Allergies, Adverse Reactions, Alerts Substance Reaction [...] 6 08/23/08 Given 1Result Comment: [05/13/2014] Fluvirax [id number] 2Admin Note: vis given 11/29/11 3Admin Note: VIS GIVEN-DATE12/21/07 4Admin Note: VIS given 06/22/11 5Admin Note: VIS 2011 GIVEN 6Admin Note: vis given Medications diclofenac 1% topical gel 1 application, Topically, 4 times a day, # 100 Gm, 0 Refills, Maintenance, 01/21/22 14:59:00 EST, Gel, [facility]/pharmacy #[id number], Partial fill upon patient [...] 01/19/21 17:26:00 EDT, Route to Pharmacy Electronically, [facility]/pharmacy #[id number], Partial fill upon patient request if the prescript... Start Date: 01/19/21 Status: Ordered SUMAtriptan 25 mg oral tablet 1 tablet = 25 mg, By Mouth, Daily, PRN for migraine headache, may repeat dose after 2 hours up to amaximum of 2. Eritrean label, # 9 tablet, 0 Refills, Maintenance, 07/02/21 14:18:00 EST, Tablet, [facility]/pharmacy #[id number], Partial fill upon patient request i... [...]
--- OUTSIDE RECORDS SUMMARY | 2023-07-12 09:21 | XMS_ITS | Continuity of Care Document ---
Author Name Unknown Organization [facility] Address [address] [place] [address]- Care Team Providers Care Supervisor Beehive Kiln Name Role Phone Leilani ELLIS, Breezy Gerard Primary Care Physician Encounter [facility] Date(s): 08/03/21 - 08/10/21 [facility] [address] [place] [address]- Attending Physician: Nixon Villagomez MD Admitting Physician: Nixon Villagomez MD Referring Physician: Kari JAVA ARCHITECT, David Allergies, Adverse Reactions, Alerts Substance Reaction Severity [...] 6 08/23/08 Given 1Result Comment: [05/13/2014] Fluvirax [id number] 2Admin Note: vis given 11/29/11 3Admin Note: VIS GIVEN-DATE12/21/07 4Admin Note: VIS given 06/22/11 5Admin Note: VIS 2011 GIVEN 6Admin Note: vis given Medications diclofenac 1% topical gel 1 application, Topically, 4 times a day, # 100 Gm, 0 Refills, Maintenance, 06/19/21 14:59:00 EST, Gel, [facility]/pharmacy #[id number], Partial fill upon patient request if the prescription is for a schedule II opioid drug., 155, cm, 06/19/21 14:39:00 EST, Height Start Date: 06/19/21 Status: Ordered naproxen 375 mg oral tablet 375 mg, 1, tablet, By Mouth, 2 times a day, for pain. take with food., # 30 tablet, Refills 0, Tot.Refills 0, Maintenance, 01/19/21 17:26:00 EDT, Route to Pharmacy Electronically, [facility]/pharmacy #[id number], Partial fill upon patient request if the prescript... Start Date: 01/19/21 Status: Ordered SUMAtriptan 25 mg oral tablet 1 tablet = 25 mg, By Mouth, Daily, PRN for migraine headache, may repeat dose after 2 hours up to amaximum of 2. Norwegian label, # 9 tablet, 0 Refills, Maintenance, 07/02/21 14:18:00 EST, Tablet, [facility]/pharmacy #[id number], Partial fill upon patient request i... Start Date: 07/02/21 Status: Ordered Problem List Condition Effective Dates Status Health Status Inform ant Hepatitis B immune(Confirmed) 1 Active Hyperlipidemia(Confirmed) Active Breast enlargement(Confirmed) Active Metabolic syndrome(Confirmed) Active Migraines(Confirmed) Active Obese class I(Confirmed) Active Class 2 obesity with body ma ss index (BMI) of 35.0 to 35.9 in adult(Confirmed) Active Panniculectomy(Confirmed) Active Colon cancer screening(Confirmed) Active Trochanteric bursitis(Confirmed) 12/04/07 Active 1immune on lab dated 12/14/2012 Vital Signs Most recent to oldest [Reference Range]: 1 Height 155 cm (08/03/21 3:37 PM) Weight 82.0 kg (08/03/21 3:37 PM) Pulse Rate [55-90 bpm] 76 bpm (08/03/21 3:37 PM) Body Mass Index [18.5-24.99] 34.13 *>HHI* (08/03/21 3:37 PM) Blood Pressure [90-138/55-84 mm Hg] 128/ 80mm Hg (08/03/21 3:37 PM) Blood pressure sites Arm, right (08/03/21 3:37 PM) Weight Obtained Via Patient/family state d (08/03/21 3:37 PM) Social History Social History Type Response Smoking Status Never smoker entered on: 09/05/14 Sex
--- OUTSIDE RECORDS SUMMARY | 2023-07-12 09:21 | XMS_ITS | Continuity of Care Document ---
Author Name Unknown Organization [facility] Address [address] [place] [address]- Care Team Providers Care Pilot Fuel Engineer Name Role Phone Leilani ELLIS, Breezy Gerard Primary Care Physician [facility] Date(s): 07/02/21 - 08/01/21 [facility] [address] [place] [id number] Allergies, Adverse Reactions, Alerts Substance Reaction Severity [...] 6 08/23/08 Given 1Result Comment: [05/13/2014] Fluvirax [id number] 2Admin Note: vis given 11/29/11 3Admin Note: [...] 01/19/21 17:26:00 EDT, Route to Pharmacy Electronically, [facility]/pharmacy #[id number], Partial fill upon patient request if the prescript... Start Date: 01/19/21 Status: Ordered SUMAtriptan 25 mg oral tablet 1 tablet = 25 mg, By Mouth, Daily, PRN for migraine headache, may repeat dose after 2 hours up to amaximum of 2. Malay label, # 9 tablet, 0 Refills, Maintenance, 07/02/21 14:18:00 EST, Tablet, [facility]/pharmacy #[id number], Partial fill upon patient request [...]
--- OUTSIDE RECORDS SUMMARY | 2023-07-12 09:21 | XMS_ITS | Continuity of Care Document ---
Author Name Unknown Organization [facility] r Address [address] [place] [address]- Care Team Providers Care Manager Risk Name Role Phone Diana Lam MD Primary Care Physician [phone] Encounter [facility] Date(s): 11/15/22 - 12/15/[address] [address] Attending Physician: Brittanie Larson Admitting Physician: AdmtrBrittanie Referring Physician: AdmtrBrittanie Allergies, Adverse Reactions, Alerts Substance Reaction Severity [...] 6 08/23/08 Given 1Result Comment: [05/13/2014] Fluvirax [id number] 2Admin Note: vis given 11/29/11 3Admin Note: [...] 1 Refills, Maintenance, 02/08/22 16:01:00 EDT, Tablet, [facility]/pharmacy #0315, Partial fill upon patient request if the prescription is for a schedule II opioid drug., 2 tablet By Mouth Peace... Start Date: 02/08/22 Status: Ordered Flonase 50 mcg/inh nasal spray 1 sprays, Nares, Both, 2 times a day, # 16 Gm, 3 Refills, Maintenance, 04/19/22 15:38:00 EST, [place], [facility]/pharmacy #0315, Partial fill upon patient request if [...] tablet, 11 Refills, Maintenance, 10/18/22 15:46:00 EDT, [facility]/pharmacy #0315, 1 tablet By Mouth Daily,x90 days, 155, cm, 10/18/22 15:26:00 EDT, Height Start Date: 10/18/22 Stop Date: 10/02/25 Status: Ordered lidocaine 5% topical ointment 1 application, Topically, 3 times a day, PRN Pain , Moderate, # 50 Gm, 0 Refills, Maintenance, 10/04/22 18:35:00 EDT, Ointment, [facility]/pharmacy #0315, Partial fill upon patient request if [...] 11/17/22 23:10:00 EDT, Route to Pharmacy Electronically, [id number], 155, cm, 10/18/22 15:26:00 EDT, Height Start Date: 11/17/22 Status: Ordered omeprazole 20 mg oral delayed release tablet 1 tablet = 20 mg, By Mouth, Daily, # 90 tablet, 1 Refills, Maintenance, 06/10/22 10:49:00 EST, EC Tablet, [id number], Partial fill upon patient [...] Team Personnel Name: Diana Lam MD Position: [facility] Resident Member Role: PCP Address: Address: [address] [place] [address]- Care Team Related Persons Name: JONATHAN MUNROE Address: home [address] [place] [address] Name: NADIR VALENZUELA Address: home [address] [place] [address] Name: JONATHAN VALENZUELA Name: TANK BANKS Address: [place] [address]
--- OUTSIDE RECORDS SUMMARY | 2023-07-12 09:21 | XMS_ITS | Continuity of Care Document ---
Author Name Unknown Organization [facility] Address [address] [place] [address]- Care Team Providers Care Web Services Developer Name Role Phone Leilani ELLIS, Breezy Gerard Primary Care Physician [facility]s): 07/02[facility]21 - 08/01/21 [facility] [address] [place] [id number] Allergies, Adverse Reactions, Alerts Substance Reaction Severity [...] 6 08/23/08 Given 1Result Comment: [05/13/2014] Fluvirax [id number] 2Admin Note: vis given 11/29/11 3Admin Note: [...] 01/19/21 17:26:00 EDT, Route to Pharmacy Electronically, [facility]/pharmacy #[id number], Partial fill upon patient request if the prescript... Start Date: 01/19/21 Status: Ordered SUMAtriptan 25 mg oral tablet 1 tablet = 25 mg, By Mouth, Daily, PRN for migraine headache, may repeat dose after 2 hours up to amaximum of 2. Bengali label, # 9 tablet, 0 Refills, Maintenance, 07/02/21 14:18:00 EST, Tablet, [facility]/pharmacy #[id number], Partial fill upon patient request [...]
--- OUTSIDE RECORDS SUMMARY | 2023-07-12 09:21 | XMS_ITS | Continuity of Care Document ---
Author Name Unknown Organization [facility] Address [address] [place] [address]- Care Team Providers Care Pipe Tester Name Role Phone Diana Lam MD Primary Care Physician [phone] Encounter [facility] Date(s): 11/06/22 - 12/15/[address] [id number] Attending Physician: Maksim Mejia MD T Admitting Physician: Maksim Mejia MD Referring Physician: Roberto ELLIS, Maksim Mckeon Allergies, Adverse Reactions, Alerts Substance Reaction Severity [...] 6 08/23/08 Given 1Result Comment: [05/13/2014] Fluvirax [id number] 2Admin Note: vis given 11/29/11 3Admin Note: [...] 1 Refills, Maintenance, 02/08/22 16:01:00 EDT, Tablet, [facility]/pharmacy #0315, Partial fill upon patient request if the prescription is for a schedule II opioid drug., 2 tablet By Mouth Peace... Start Date: 02/08/22 Status: Ordered Flonase 50 mcg/inh nasal spray 1 sprays, Nares, Both, 2 times a day, # 16 Gm, 3 Refills, Maintenance, 04/19/22 15:38:00 EST, [place], [facility]/pharmacy #0315, Partial fill upon patient request if [...] tablet, 11 Refills, Maintenance, 10/18/22 15:46:00 EDT, [facility]/pharmacy #0315, 1 tablet By Mouth Daily,x90 days, 155, cm, 10/18/22 15:26:00 EDT, Height Start Date: 10/18/22 Stop Date: 10/02/25 Status: Ordered lidocaine 5% topical ointment 1 application, Topically, 3 times a day, PRN Pain , Moderate, # 50 Gm, 0 Refills, Maintenance, 10/04/22 18:35:00 EDT, Ointment, [facility]/pharmacy #0315, Partial fill upon patient request if [...] 11/17/22 23:10:00 EDT, Route to Pharmacy Electronically, [facility] STORE [id number], 155, cm, 10/18/22 15:26:00 EDT, Height Start Date: 11/17/22 Status: Ordered omeprazole 20 mg oral delayed release tablet 1 tablet = 20 mg, By Mouth, Daily, # 90 tablet, 1 Refills, Maintenance, 06/10/22 10:49:00 EST, EC Tablet, [facility]/pharmacy #0315, Partial fill upon patient request if [...] Refills, Soft Stop, 11/02/21 14:41:00 EDT, Tablet, [facility]/pharmacy #0315, Partial fill upon patient... Start Date: [...] Team Personnel Name: Diana Lam MD Position: [facility] Resident Member Role: PCP Address: Address: [address] [place] [address] [place] [address]- Care Team Related Persons Name: JONATHAN MUNROE Address: home [address] [place] [address] Name: NADIR VALENZUELA Address: home [address] [place] [address] Name: JONATHAN VALENZUELA Name: TANK BANKS Address: [place] [address]
--- OUTSIDE RECORDS SUMMARY | 2023-07-12 09:21 | XMS_ITS | Continuity of Care Document ---
Author Name Unknown Organization [facility] Address [address] [place] [address]- Care Team Providers Care Central Office Supervisor Name Role Phone Genaro ELLIS, Diana Primary Care Physician [facility] Date[facility]s): 02/21[facility]23 - 03/23/23 [facility] [address] [place] [email or web address] Allergies, Adverse Reactions, Alerts Substance Reaction Severity [...] 6 08/23/08 Given 1Result Comment: [05/13/2014] Fluvirax [id number] 2Admin Note: vis given 11/29/11 3Admin Note: [...] Gm, 3 Refills, Maintenance, 04/19/22 15:38:00 EST, [place], [facility], Partial fill upon patient request [...] tablet, 11 Refills, Maintenance, 10/18/22 15:46:00 EDT, [facility]/pharmacy #0315, 1 tablet By Mouth Daily,x90 days, 155, cm, 10/18/22 15:26:00 EDT, Height Start Date: 10/18/22 Stop Date: 10/02/25 Status: Ordered lidocaine 5% topical ointment 1 application, Topically, 3 times a day, PRN Pain , Moderate, # 50 Gm, 0 Refills, Maintenance, 10/04/22 18:35:00 EDT, Ointment, [facility]/pharmacy #0315, Partial fill upon patient [...] 11/17/22 23:10:00 EDT, Route to Pharmacy Electronically, [facility], 155, cm, 10/18/22 15:26:00 EDT, Height Start Date: 11/17/22 Status: Ordered omeprazole 20 mg oral delayed release tablet 1 tablet = 20 mg, By Mouth, Daily, # 90 tablet, 1 Refills, Maintenance, 06/10/22 10:49:00 EST, EC Tablet, [facility]/pharmacy #0315, Partial fill upon patient [...] Refills, Soft Stop, 11/02/21 14:41:00 EDT, Tablet, [facility]/pharmacy #0315, Partial fill upon patient... Start [...] Team Personnel Name: Diana Lam MD Position: [facility] Resident Member Role: PCP Address: Address: [address] [facility] [place] [address]- Care Team Related Persons Name: JONATHAN MUNROE Address: home [address] [place] [address] Name: NADIR VALENZUELA Address: home [address] [place] [address] Name: JONATHAN VALENZUELA Name: TANK BANKS Address: [place] [address]
--- OUTSIDE RECORDS SUMMARY | 2023-07-12 09:21 | XMS_ITS | Continuity of Care Document ---
Author Name Unknown Organization [facility] Address [address] [place] [address]- Care Team Providers Care Paper Pattern Inspector Name Role Phone Leilani ELLIS, Breezy Gerard Primary Care Physician Encounter [facility] Date(s): 04/19/22 - 05/19/22 [facility] [address] [place] [id number] Allergies, Adverse Reactions, Alerts Substance Reaction Severity [...] 6 08/23/08 Given 1Result Comment: [05/13/2014] Fluvirax [id number] 2Admin Note: vis given 11/29/11 3Admin Note: VIS GIVEN-DATE12/21/07 4Admin Note: VIS given 06/22/11 5Admin Note: VIS 2011 GIVEN 6Admin Note: vis given Medications atorvastatin 80 mg oral tablet 1 tablet = 80 mg, By Mouth, Daily, # 90 tablet, 0 Refills, Maintenance, 12/25/21 10:42:00 EDT, Tablet, Partial fill upon patient request if the prescription is for a schedule II opioid drug. Start Date: 12/25/21 Status: Ordered Blood Pressure Monitor Blood Pressure Monitor, See Instructions, # 1 each, Refills 0, Tot. Refills 0, Maintenance, Check BP 3x Weekly, 2 Hours After Morning Medications and Document Dx: HTN (I10); Losartan 25mg Duration: 1Year, 11/16/21 15:52:00 EDT, Supply Start Date: 11/16/21 Status: Ordered cyclobenzaprine 5 mg oral tablet [...] Gm, 3 Refills, Maintenance, 04/19/22 15:38:00 EST, [place], [id number], Partial fill upon patient request if the prescription is for a schedule II opioid drug., 1 sprays Nares, Both 2 times a day, 155,... Start Date: 04/19/22 Status: Ordered ibuprofen 800 mg oral tablet 800 mg, 1, tablet, By Mouth, 3 times a day, PRN, # 30 tablet, Refills 0, Tot. Refills 0, Maintenance, for pain, 11/02/21 14:45:00 EDT, Route to Pharmacy Electronically, [facility]/pharmacy #[id number], Partial fill upon patient request if the prescription is for a... Start Date: 11/02/21 Status: Ordered losartan 50 mg oral tablet 1 tablet = 50 mg, By Mouth, Daily, # 90 tablet, 1 Refills, Maintenance, 02/08/22 15:58:00 EDT, Tablet, [facility]/pharmacy #[id number], Partial fill upon patient request if the prescription is for a schedule II opioid drug., 155, cm, 02/08/22 15:09:00 EDT, Height Start Date: 02/08/22 Status: Ordered nitroglycerin 0.3 mg sublingual tablet [...] 04/13/22 15:56:00 EST, Route to Pharmacy Electronically, [facility]/pharmacy #[id number], 155, cm, 02/08/22 15:09:00 EDT, Height Start Date: 04/13/22 Status: Ordered SUMAtriptan 50 mg oral tablet 1 tablet = 50 mg, By Mouth, Once, PRN as needed for migraine headache, may repeat dose after 2 hours up to a maximum of 200 mg in 24 hours, # 9 tablet, 0 Refills, Soft Stop, 11/02/21 14:41:00 EDT, Tablet, [facility]/pharmacy #[id number], Partial fill upon patient... Start Date: [...] cancer screening Confirmed Active Prediabetes Confirmed Active Trochanteric bursitis Confirmed 12/04/07 Active Varicose vein of leg Confirmed Active 1Tuboovarian 2immune on lab dated 12/14/2012 Social History Social History Type Response Smoking Status Never smoker entered on: 09/05/14 Sex Patient Care team information Care Team Personnel Name: Breezy Duke MD Position: S Resident Member Role: PCP Address: Address: [address] [facility] [place] [address]- Care Team Related Persons Name: JONATHAN MUNROE Address: home [address] [place] [address] Name: NADIR VALENZUELA Address: home [address] [place] [address] Name: JONATHAN VALENZUELA Name: TANK BANKS Address: home UNKNOWN [facility] [place]
--- OUTSIDE RECORDS SUMMARY | 2023-07-12 09:21 | XMS_ITS | Continuity of Care Document ---
Author Name Unknown Organization [facility] Address [address] [place] [address]- Care Team Providers Care Wax Specialist Name Role Phone Genaro ELLIS, Diana Primary Care Physician [facility] Date[facility] 11[facility]/22 - 01/09/23 [facility] [address] [place] [id number] Attending Physician: Not on Staff, Attending MD Allergies, Adverse Reactions, Alerts Substance Reaction [...] 6 08/23/08 Given 1Result Comment: [05/13/2014] Fluvirax [id number] 2Admin Note: vis given 11/29/11 3Admin Note: [...] Gm, 3 Refills, Maintenance, 04/19/22 15:38:00 EST, [place], [facility]/pharmacy #[id number], Partial fill upon patient request if [...] tablet, 11 Refills, Maintenance, 10/18/22 15:46:00 EDT, [facility]/pharmacy #[id number], 1 tablet By Mouth Daily,x90 days, 155, cm, 10/18/22 15:26:00 EDT, Height Start Date: 10/18/22 Stop Date: 10/02/25 Status: Ordered lidocaine 5% topical ointment 1 application, Topically, 3 times a day, PRN Pain , Moderate, # 50 Gm, 0 Refills, Maintenance, 10/04/22 18:35:00 EDT, Ointment, [facility]/pharmacy #[id number], Partial fill upon patient request if [...] 11/17/22 23:10:00 EDT, [facility]ically, [id number], 155, cm, 10/18/22 15:26:00 EDT, Height Start Date: 11/17/22 Status: Ordered omeprazole 20 mg oral delayed release tablet 1 tablet = 20 mg, By Mouth, Daily, # 90 tablet, 1 Refills, Maintenance, 06/10/22 10:49:00 EST, EC Tablet, [facility]/pharmacy #[id number], Partial fill upon patient request if [...] Team Personnel Name: Diana Lam MD Position: [facility] Resident Member Role: PCP Address: Address: [address] [facility] [place] [address]- Care Team Related Persons Name: JONATHAN MUNROE Address: home [address] [place] [address] Name: NADIR VALENZUELA Address: home [address] [place] [address] Name: JONATHAN VALENZUELA Name: TANK BANKS Address: [place] [address]
--- OUTSIDE RECORDS SUMMARY | 2023-07-12 09:21 | XMS_ITS | Continuity of Care Document ---
Author Name Unknown Organization [facility] Address [address] [place] [address]- Care Team Providers Care Rn Acute Care Name Role Phone Leilani ELLIS, Breezy Gerard Primary Care Physician Encounter [facility] Date(s): 04/23/22 - 05/23/22 [facility] [address] [place] [id number] Allergies, Adverse Reactions, Alerts Substance [...] 6 08/23/08 Given 1Result Comment: [05/13/2014] Fluvirax [id number] 2Admin Note: vis given 11/29/11 3Admin Note: [...] Gm, 3 Refills, Maintenance, 04/19/22 15:38:00 EST, [place], [id number], Partial fill upon patient request [...] 11/02/21 14:45:00 EDT, Route to Pharmacy Electronically, [facility]/pharmacy #[id number], Partial fill upon patient request if the prescription is for a... Start Date: 11/02/21 Status: Ordered losartan 50 mg oral tablet 1 tablet = 50 mg, By Mouth, Daily, # 90 tablet, 1 Refills, Maintenance, 02/08/22 15:58:00 EDT, Tablet, [facility]/pharmacy #0315, Partial fill upon patient request [...] 04/13/22 15:56:00 EST, Route to Pharmacy Electronically, [facility]/pharmacy #[id number], 155, cm, 02/08/22 15:09:00 EDT, Height Start Date: 04/13/22 Status: Ordered SUMAtriptan 50 mg oral tablet 1 tablet = 50 mg, By Mouth, Once, PRN as needed for migraine headache, may repeat dose after 2 hours up to a maximum of 200 mg in 24 hours, # 9 tablet, 0 Refills, Soft Stop, 11/02/21 14:41:00 EDT, Tablet, [facility]/pharmacy #0315, Partial fill upon patient... Start [...] Member Role: PCP Address: Address: [address] [place] [address]- Care Team Related Persons Name: JONATHAN MUNROE Address: home [address] [place] [address] Name: NADIR VALENZUELA Address: home [address] [place] [address] Name: JONATHAN VALENZUELA Name: TANK BANKS Address: home UNKNOWN [facility] [place]
--- OUTSIDE RECORDS SUMMARY | 2023-07-12 09:21 | XMS_ITS | Continuity of Care Document ---
Author Name Unknown Organization [facility] Address [address] [place] [address]- Care Team Providers Care Box Fabricator Name Role Phone Leilani ELLIS, Breezy Gerard Primary Care Physician [facility] Date(s): 09/09/21 - 10/09/21 [facility] [address] [place], [place] [address] Allergies, Adverse Reactions, Alerts [...] 6 08/23/08 Given 1Result Comment: [05/13/2014] Fluvirax [id number] 2Admin Note: vis given 11/29/11 3Admin Note: [...] 01/19/21 17:26:00 EDT, Route to Pharmacy Electronically, [facility]/pharmacy #[id number], Partial fill upon patient request if the prescript... Start Date: 01/19/21 Status: Ordered ProAir HFA 90 mcg/inh inhalation aerosol with adapter 2, puffs, Inhalation, Every 4 hours, PRN, , cough, or SOB, # 1 each, Refills 0, Tot. Refills 0, Maintenance, 09/10/21 17:00:00 EDT, Aerosol, Route to Pharmacy Electronically, [id number], [facility]/pharmacy #0315, 155, cm, 09/10/21... Start Date: 09/10/21 Stop Date: 10/10/21 Status: Ordered SUMAtriptan 25 mg oral tablet 1 tablet = 25 mg, By Mouth, Daily, PRN for migraine headache, may repeat dose after 2 hours up to amaximum of 2. Vietnamese label, # 9 tablet, 0 Refills, Maintenance, 07/02/21 14:18:00 EST, Tablet, [facility]/pharmacy #0315, Partial fill upon patient request [...]
--- OUTSIDE RECORDS SUMMARY | 2023-07-12 09:21 | XMS_ITS | Continuity of Care Document ---
Author Name Unknown Organization [facility] Address [address] [place] [address]- Care Team Providers Care Quality Assurance Project Manager Name Role Phone Leilani ELLIS, Breezy Gerard Primary Care Physician [facility] Date(s[facility] 11/03/21 - 12/26/21 [facility] Medicine [address] [place] [id number] Attending Physician: Tia Butler MD Admitting Physician: Tia Butler MD Allergies, Adverse Reactions, Alerts Substance Reaction [...] 6 08/23/08 Given 1Result Comment: [05/13/2014] Fluvirax [id number] 2Admin Note: vis given 11/29/11 3Admin Note: [...] 0 Refills, Maintenance, 11/02/21 14:44:00 EDT, Gel, [facility]/pharmacy #[id number], Partial fill upon patient [...] mg, 1, tablet, By Mouth, Daily, # 90 tablet, Refills 1, Tot. Refills 1, Maintenance, 12/14/21 14:42:00 EDT, Route to Pharmacy Electronically, [facility]/pharmacy #[id number], Partial fill upon patient request if the prescription is for a schedule II opioid drug... Start Date: 12/14/21 Status: Ordered nitroglycerin 0.3 mg sublingual tablet 1 tablet = 0.3 mg, Sublingual, Every 5 minutes, PRN as needed for chest pain, not to exceed 3 doses/15 min--if pain persists, seek medical attention, # 100 tablet, 0 Refills, Maintenance, 12/25/21 10:42:00 EDT, Tablet, Partial fill upon patient reques... Start Date: 12/25/21 Status: Ordered SUMAtriptan 50 mg oral tablet 1 tablet = 50 mg, By Mouth, Once, PRN as needed for migraine headache, may repeat dose after 2 hours up to a maximum of 200 mg in 24 hours, # 9 tablet, 0 Refills, Soft Stop, 11/02/21 14:41:00 EDT, Tablet, [facility]/pharmacy #[id number], Partial fill upon patient... Start Date: 11/02/21 Status: Ordered Problem List Condition Effective Dates Status Health Status Inform ant Abscess(Confirmed) 1 Active Allergic dermatitis(Confirmed) Active CAD (coronary artery disease)(Confirmed) Active Hepatitis B immune(Confirmed) 2 Active Hydrosalpinx(Confirmed) Active Hyperlipidemia(Confirmed) Active Breast enlargement(Confirmed) Active Fibroid(Confirmed) Active Lower abdominal pain(Confirmed) Active Metabolic syndrome(Confirmed) Active Migraines(Confirmed) Active Obese class II(Confirmed) Active Class 2 obesity with body ma ss index (BMI) of 35.0 to 35.9 in adult(Confirmed) Active Panniculectomy(Confirmed) Active Colon cancer screening(Confirmed) Active Prediabetes(Confirmed) Active Trochanteric bursitis(Confirmed) 12/04/07 Active Varicose vein of leg(Confirmed) Active 1Tuboovarian 2immune on lab dated 12/14/2012 Social History Social History Type Response Smoking Status Never smoker entered on: 09/05/14 Sex
--- OUTSIDE RECORDS SUMMARY | 2023-07-12 09:21 | XMS_ITS | Continuity of Care Document ---
Author Name Unknown Organization [facility] Address [address] [place] [address]- Care Team Providers Care Intermodal Owner Operator Truck Driver Name Role Phone Leilani ELLIS, Breezy Gerard Primary Care Physician [facility] Date[facility]s): 09/10/21 - 10/10/21 [facility] [address] [place] [id number] Allergies, Adverse Reactions, Alerts Substance Reaction [...] 6 08/23/08 Given 1Result Comment: [05/13/2014] Fluvirax [id number] 2Admin Note: vis given 11/29/11 3Admin Note: [...] 01/19/21 17:26:00 EDT, Route to Pharmacy Electronically, [facility]/pharmacy #[id number], Partial fill upon patient request if the prescript... Start Date: 01/19/21 Status: Ordered ProAir HFA 90 mcg/inh inhalation aerosol with adapter 2, puffs, Inhalation, Every 4 hours, PRN, , cough, or SOB, # 1 each, Refills 0, Tot. Refills 0, Maintenance, 09/10/21 17:00:00 EDT, Aerosol, Route to Pharmacy Electronically, [id number], [facility]/pharmacy #0315, 155, cm, 09/10/21... Start Date: 09/10/21 Stop Date: 10/10/21 Status: Ordered SUMAtriptan 25 mg oral tablet 1 tablet = 25 mg, By Mouth, Daily, PRN for migraine headache, may repeat dose after 2 hours up to amaximum of 2. Faroese label, # 9 tablet, 0 Refills, Maintenance, 07/02/21 14:18:00 EST, Tablet, [facility]/pharmacy #0315, Partial fill upon patient request [...]
--- OUTSIDE RECORDS SUMMARY | 2023-07-12 09:21 | XMS_ITS | Continuity of Care Document ---
Author Name Unknown Organization [facility] Address [address] [place] [address]- Care Team Providers Care Aircraft Load Controller Name Role Phone Leilani ELLIS, Breezy Gerard Primary Care Physician Encounter [facility] Date(s): 02/05/22 - 03/07/22 [facility] [address] [place] [id number] Allergies, Adverse Reactions, Alerts [...] 6 08/23/08 Given 1Result Comment: [05/13/2014] Fluvirax [id number] 2Admin Note: vis given 11/29/11 3Admin Note: [...] Mouth Peace... Start Date: 02/08/22 Status: Ordered ibuprofen 800 mg oral tablet 800 mg, 1, tablet, By Mouth, 3 times a day, PRN, # 30 tablet, Refills 0, Tot. Refills 0, Maintenance, for pain, 11/02/21 14:45:00 EDT, Route to Pharmacy Electronically, [facility]/pharmacy #[id number], Partial fill upon patient request if the prescription is for a... Start Date: 11/02/21 Status: Ordered losartan 50 mg oral tablet 1 tablet = 50 mg, By Mouth, Daily, # 90 tablet, 1 Refills, Maintenance, 02/08/22 15:58:00 EDT, Tablet, [facility]/pharmacy #0315, Partial fill upon patient [...] Status: Ordered nortriptyline 10 mg oral capsule 10 mg, 1, capsule, By Mouth, Daily at bedtime, for headache prevention, # 30 capsule, Refills 1, Tot. Refills 1, Maintenance, 02/08/22 15:59:00 EDT, Route to Pharmacy Electronically, [facility]/pharmacy #[id number], Partial fill upon patient request if the prescri... Start Date: 02/08/22 Status: Ordered SUMAtriptan 50 mg oral tablet 1 tablet = 50 mg, By Mouth, Once, PRN as needed for migraine headache, may repeat dose after 2 hours up to a maximum of 200 mg in 24 hours, # 9 tablet, 0 Refills, Soft Stop, 11/02/21 14:41:00 EDT, [facility], [facility], Partial fill upon patient... Start Date: 11/02/21 Status: Ordered Problem List Condition Confirmation Course [...] on: 09/05/14 Sex Patient Care team information Personnel Name: Breezy Duke MD Address: Address: [address] [place] [address] Adult [place], [place] [address]
--- OUTSIDE RECORDS SUMMARY | 2023-07-12 09:21 | XMS_ITS | Continuity of Care Document ---
Author Name Unknown Organization [facility] Address [address] [place] [address]- Care Team Providers Care Vice President Name Role Phone Breezy Duke MD Primary Care Physician [facility]): 11/27/20 - 12/27/20 [facility] [address] [place], [place] [address] Allergies, Adverse Reactions, Alerts Substance Reaction Severity Status penicillin rash Moderate Active Immunizations Given and Recorded Vaccine Date Status Refusal Reason influenza virus vaccine, inactivated 1 05/13/14 Gi liz influenza virus vaccine, inactivated 2 08/07/12 Gi liz influenza virus vaccine, inactivated 3 02/12/09 Gi liz hepatitis B adult vaccine 06/27/13 Given hepatitis B adult vaccine 01/15/13 Given hepatitis B adult vaccine 4 12/14/12 Given tetanus/diphtheria/pertussis, acel(Tdap) 5 12/14/12 Given Tetanus-Diphth Toxoids, Adult (oldterm) 6 08/23/08 Given 1Result Comment: [05/13/2014] Fluvirax [id number] 2Admin Note: vis given 11/29/11 3Admin Note: VIS GIVEN-DATE12/21/07 4Admin Note: VIS 2011 GIVEN 5Admin Note: VIS given 06/22/11 6Admin Note: vis given Problem List Condition Effective Dates Status Health Status Inform ant Hepatitis B immune(Confirmed) 1 Active Breast enlargement(Confirmed) Active Migraines(Confirmed) Active Panniculectomy(Confirmed) Active Trochanteric bursitis(Confirmed) 12/04/07 Active 1immune on lab dated 12/14/2012 Social History Social History Type Response Smoking Status Never smoker entered on: 09/05/14 Sex
--- OUTSIDE RECORDS SUMMARY | 2023-07-12 09:21 | XMS_ITS | Continuity of Care Document ---
Author Name Unknown Organization [facility] Address [address] [place] [address]- Care Team Providers Care Principal Java Developer Name Role Phone Genaro ELLIS, Diana Primary Care Physician [phone] [facility]): 02/10/23 - 03/12/23 [facility] [address] [place] [id number] Allergies, Adverse Reactions, Alerts Substance Reaction Severity [...] 6 08/23/08 Given 1Result Comment: [05/13/2014] Fluvirax [id number] 2Admin Note: vis given 11/29/11 3Admin Note: [...] Gm, 3 Refills, Maintenance, 04/19/22 15:38:00 EST, [place], Partial fill upon patient request [...] tablet, 11 Refills, Maintenance, 10/18/22 15:46:00 EDT, [facility]/pharmacy #0315, 1 tablet By Mouth Daily,x90 days, 155, cm, 10/18/22 15:26:00 EDT, Height Start Date: 10/18/22 Stop Date: 10/02/25 Status: Ordered lidocaine 5% topical ointment 1 application, Topically, 3 times a day, PRN Pain , Moderate, # 50 Gm, 0 Refills, Maintenance, 10/04/22 18:35:00 EDT, Ointment, [facility]/pharmacy #0315, Partial fill [...] 11/17/22 23:10:00 EDT, Route to Pharmacy Electronically, [id number], 155, cm, 10/18/22 15:26:00 EDT, Height Start Date: 11/17/22 Status: Ordered omeprazole 20 mg oral delayed release tablet 1 tablet = 20 mg, By Mouth, Daily, # 90 tablet, 1 Refills, Maintenance, 06/10/22 10:49:00 EST, EC Tablet, [facility]/pharmacy #0315, Partial [...] Refills, Soft Stop, 11/02/21 14:41:00 EDT, Tablet, [facility]/pharmacy #0315, Partial fill upon patient... Start Date: [...] Team Personnel Name: Diana Lam MD Position: [facility] Resident Member Role: PCP Address: Address: [address] [facility] [place] [address]- Care Team Related Persons Name: JONATHAN MUNROE Address: home [address] [place] [address] Name: NADIR VALENZUELA Address: home [address] [place] [address] Name: JONATHAN VALENZUELA Name: TANK BANKS Address: [place] [address]
--- OUTSIDE RECORDS SUMMARY | 2023-07-12 09:21 | XMS_ITS | Continuity of Care Document ---
Author Name Unknown Organization [facility] Address [address] [place] [address]- Care Team Providers Care Practicing Md Anesthesiologist Name Role Phone Leilani ELLIS, Breezy Gerard Primary Care Physician [facility] 06/18[facility]21 - 07/18/21 [facility] [address] [place] [id number] Allergies, Adverse Reactions, Alerts Substance Reaction [...] 6 08/23/08 Given 1Result Comment: [05/13/2014] Fluvirax [id number] 2Admin Note: vis given 11/29/11 3Admin Note: [...] 01/19/21 17:26:00 EDT, Route to Pharmacy Electronically, [facility]/pharmacy #0315, Partial fill upon patient request if the prescript... Start Date: 01/19/21 Status: Ordered SUMAtriptan 25 mg oral tablet 1 tablet = 25 mg, By Mouth, Daily, PRN for migraine headache, may repeat dose after 2 hours up to amaximum of 2. Tajik label, # 9 tablet, 0 Refills, Maintenance, 07/02/21 14:18:00 EST, Tablet, [facility]/pharmacy #0315, Partial fill upon [...]
--- OUTSIDE RECORDS SUMMARY | 2023-07-12 09:21 | XMS_ITS | Continuity of Care Document ---
Author Name Unknown Organization [facility] Address [address] [place] [address]- Care Team Providers Care Events Assistant Name Role Phone Leilani ELLIS, Breezy Gerard Primary Care Physician [facility] 05[facility]14[facility]21 - 06/13/21 [facility] [address] [place], [place] [address] Allergies, Adverse Reactions, Alerts Substance [...] 6 08/23/08 Given 1Result Comment: [05/13/2014] Fluvirax [id number] 2Admin Note: vis given 11/29/11 3Admin Note: VIS GIVEN-DATE12/21/07 4Admin Note: VIS given 06/22/11 5Admin Note: VIS 2011 GIVEN 6Admin Note: vis given Medications naproxen 375 mg oral tablet 375 mg, 1, tablet, By Mouth, 2 times a day, for pain. take with food., # 30 tablet, Refills 0, Tot.Refills 0, Maintenance, 01/19/21 17:26:00 EDT, Route to Pharmacy Electronically, [facility]/pharmacy #0318, Partial fill upon patient request if the [...]
--- OUTSIDE RECORDS SUMMARY | 2023-07-12 09:21 | XMS_ITS | Continuity of Care Document ---
Author Name Unknown Organization [facility] rv[facility] Address [address] [place] [address]- Care Team Providers Care Medical Examiner Name Role Phone Breezy Duke MD Primary Care Physician Encounter [facility] Date(s): 09/08/21 - 09/15/21 [facility] [address] [place] [address]- Attending Physician: Nixon Villagomez MD Admitting Physician: Nixon Villagomez MD Referring Physician: Breezy Duke MD Allergies, Adverse Reactions, Alerts Substance Reaction [...] 6 08/23/08 Given 1Result Comment: [05/13/2014] Fluvirax [id number] 2Admin Note: vis given 11/29/11 3Admin Note: VIS GIVEN-DATE12/21/07 4Admin Note: VIS given 06/22/11 5Admin Note: VIS 2011 GIVEN 6Admin Note: vis given Medications diclofenac 1% topical gel 1 application, Topically, 4 times a day, # 100 Gm, 0 Refills, Maintenance, 06/19/21 14:59:00 EST, Gel, [facility]/pharmacy #[id number], Partial fill upon patient [...] 01/19/21 17:26:00 EDT, Route to Pharmacy Electronically, [facility]/pharmacy #[id number], Partial fill upon patient request if the prescript... Start Date: 01/19/21 Status: Ordered ProAir HFA 90 mcg/inh inhalation aerosol with adapter 2, puffs, Inhalation, Every 4 hours, PRN, , cough, or SOB, # 1 each, Refills 0, Tot. Refills 0, Maintenance, 09/10/21 17:00:00 EDT, Aerosol, Route to Pharmacy Electronically, [id number], [facility]/pharmacy #[id number], 155, cm, 09/10/21... Start Date: 09/10/21 Stop Date: 10/10/21 Status: Ordered SUMAtriptan 25 mg oral tablet 1 tablet = 25 mg, By Mouth, Daily, PRN for migraine headache, may repeat dose after 2 hours up to amaximum of 2. Mauritanian label, # 9 tablet, 0 Refills, Maintenance, 07/02/21 14:18:00 EST, Tablet, [facility]/pharmacy #[id number], Partial fill upon patient [...] oldest [Reference Range]: 1 Height 155 cm (09/08/21 3:56 PM) Weight 81.65 kg (09/08/21 3:56 PM) Oxygen Saturation [94-100 %] 97 % (09/08/21 3:56 PM) Pulse Rate [55-90 bpm] 100 bpm *H* (09/08/21 3:56 PM) Body Mass Index [18.5-24.99] 33.99 *>HHI* (09/08/21 3:56 PM) Blood Pressure [90-138/55-84 mm Hg] 130/ 76mm Hg (09/08/21 3:56 PM) Mode of Delivery (Oxygen) Room air (09/08/21 3:56 PM) Blood pressure sites Arm, left (09/08/21 3:56 PM) Weight Obtained Via Patient/family state d (09/08/21 3:56 PM) Social History Social History Type Response Smoking Status Never smoker entered on: 09/05/14 Sex
--- OUTSIDE RECORDS SUMMARY | 2023-07-12 09:22 | XMS_ITS | Continuity of Care Document ---
Author Name Unknown Organization [facility] ion Address [address] [place] [address]- Care Team Providers Care Picture Copyist Name Role Phone Genaro ELLIS, Diana Primary Care Physician [phone] Encounter [facility] Date(s): 12/22/22 - 01/30/[address] [address] Attending Physician: Nayan TOLEDO, Raven Mancera Admitting Physician: Nayan TOLEDO, Raven Mancera Referring Physician: Nayan TOLEDO, Raven Mancera Allergies, Adverse Reactions, Alerts Substance Reaction Severity [...] 6 08/23/08 Given 1Result Comment: [05/13/2014] Fluvirax [id number] 2Admin Note: vis given 11/29/11 3Admin Note: [...] 1 Refills, Maintenance, 02/08/22 16:01:00 EDT, Tablet, [facility]/pharmacy #0315, Partial fill upon patient request if the prescription is for a schedule II opioid drug., 2 tablet By Mouth Peace... Start Date: 02/08/22 Status: Ordered Flonase 50 mcg/inh nasal spray 1 sprays, Nares, Both, 2 times a day, # 16 Gm, 3 Refills, Maintenance, 04/19/22 15:38:00 EST, [place], [facility]/pharmacy #0315, Partial fill upon patient request [...] tablet, 11 Refills, Maintenance, 10/18/22 15:46:00 EDT, [facility]/pharmacy #0315, 1 tablet By Mouth Daily,x90 days, 155, cm, 10/18/22 15:26:00 EDT, Height Start Date: 10/18/22 Stop Date: 10/02/25 Status: Ordered lidocaine 5% topical ointment 1 application, Topically, 3 times a day, PRN Pain , Moderate, # 50 Gm, 0 Refills, Maintenance, 10/04/22 18:35:00 EDT, Ointment, [facility]/pharmacy #0315, Partial fill upon patient request [...] 11/17/22 23:10:00 EDT, Route to Pharmacy Electronically, [facility] STORE [id number], 155, cm, 10/18/22 15:26:00 EDT, Height Start Date: 11/17/22 Status: Ordered omeprazole 20 mg oral delayed release tablet 1 tablet = 20 mg, By Mouth, Daily, # 90 tablet, 1 Refills, Maintenance, 06/10/22 10:49:00 EST, EC Tablet, [facility]/pharmacy #0315, Partial fill upon patient request [...] Refills, Soft Stop, 11/02/21 14:41:00 EDT, Tablet, [facility]/pharmacy #0315, Partial fill upon patient... Start [...] Team Personnel Name: Diana Lam MD Position: [facility] Resident Member Role: PCP Address: Address: [address] [place] [address] [place] [address]- Care Team Related Persons Name: JONATHAN MUNROE Address: home [address] [place] [address] Name: NADIR VALENZUELA Address: home [address] [place] [address] Name: JONATHAN VALENZUELA Name: TANK BANKS Address: [place] [address]
--- OUTSIDE RECORDS SUMMARY | 2023-07-12 09:22 | XMS_ITS | Continuity of Care Document ---
Author Name Unknown Organization [facility] Adult Medicine Address [address] [place] [address]- Care Team Providers Care Environmental Law Professor Name Role Phone Leilani ELLIS, Breezy Gerard Primary Care Physician [facility] Date[facility]s): 04/27/22 - 05/27/22 [facility] [address] [place] [address] Allergies, Adverse Reactions, Alerts Substance Reaction Severity [...] 6 08/23/08 Given 1Result Comment: [05/13/2014] Fluvirax [id number] 2Admin Note: vis given 11/29/11 3Admin Note: [...] Gm, 3 Refills, Maintenance, 04/19/22 15:38:00 EST, [place], [facility], Partial fill upon patient request [...] 11/02/21 14:45:00 EDT, Route to Pharmacy Electronically, [facility]/pharmacy #0315, Partial fill upon patient request if the prescription is for a... Start Date: 11/02/21 Status: Ordered losartan 50 mg oral tablet 1 tablet = 50 mg, By Mouth, Daily, # 90 tablet, 1 Refills, Maintenance, 02/08/22 15:58:00 EDT, Tablet, [facility]/pharmacy #0315, Partial fill [...] 04/13/22 15:56:00 EST, Route to Pharmacy Electronically, [facility]/pharmacy #0315, 155, cm, 02/08/22 15:09:00 EDT, Height Start Date: 04/13/22 Status: Ordered SUMAtriptan 50 mg oral tablet 1 tablet = 50 mg, By Mouth, Once, PRN as needed for migraine headache, may repeat dose after 2 hours up to a maximum of 200 mg in 24 hours, # 9 tablet, 0 Refills, Soft Stop, 11/02/21 14:41:00 EDT, Tablet, [facility]/pharmacy #0315, Partial fill upon patient... Start [...] Resident Member Role: PCP Address: Address: [address] [facility] [place] [address]- Care Team Related Persons Name: JONATHAN MUNROE Address: home [address] [place] [address] Name: NADIR VALENZUELA Address: home [address] [place] [address] Name: JONATHAN VALENZUELA Name: TANK BANKS Address: home [place], [place]
--- OUTSIDE RECORDS SUMMARY | 2023-07-12 09:22 | XMS_ITS | Continuity of Care Document ---
Author Name Unknown Organization [facility] Adult Medicine Address [address] [place] [address]- Care Team Providers Care Ekg Monitor Name Role Phone Leilani ELLIS, Breezy Gerard Primary Care Physician Encounter [facility] Date(s): 01/19/21 - 02/18/21 [facility] Adult Medicine [address] [place] [id number] Attending Physician: Not on [...] 6 08/23/08 Given 1Result Comment: [05/13/2014] Fluvirax [id number] 2Admin Note: vis given 11/29/11 3Admin Note: VIS GIVEN-DATE12/21/07 4Admin Note: VIS given 06/22/11 5Admin Note: VIS 2011 GIVEN 6Admin Note: vis given Medications naproxen 375 mg oral tablet 375 mg, 1, tablet, By Mouth, 2 times a day, for pain. take with food., # 30 tablet, Refills 0, Tot.Refills 0, Maintenance, 01/19/21 17:26:00 EDT, Route to Pharmacy Electronically, [facility]/pharmacy #[id number], Partial fill upon patient request if the [...]
--- OUTSIDE RECORDS SUMMARY | 2023-07-12 09:22 | XMS_ITS | Continuity of Care Document ---
Author Name Unknown Organization [facility] Adult Medicine Address [address] [place] [address]- Care Team Providers Care Belt Molder Name Role Phone Genaro ELLIS, Diana Primary Care Physician [phone] Encounter [facility] Date(s): 03/24/23 - 04/23/23 [facility] [address] [place] [id number] Allergies, Adverse Reactions, Alerts [...] 6 08/23/08 Given 1Result Comment: [05/13/2014] Fluvirax [id number] 2Admin Note: vis given 11/29/11 3Admin Note: [...] Gm, 3 Refills, Maintenance, 04/19/22 15:38:00 EST, [place], [facility], Partial fill upon patient request [...] tablet, 11 Refills, Maintenance, 10/18/22 15:46:00 EDT, [facility]/pharmacy #0315, 1 tablet By Mouth Daily,x90 days, 155, cm, 10/18/22 15:26:00 EDT, Height Start Date: 10/18/22 Stop Date: 10/02/25 Status: Ordered lidocaine 5% topical ointment 1 application, Topically, 3 times a day, PRN Pain , Moderate, # 50 Gm, 0 Refills, Maintenance, 10/04/22 18:35:00 EDT, Ointment, [facility]/pharmacy #0315, Partial fill upon patient [...] 11/17/22 23:10:00 EDT, Route to Pharmacy Electronically, [facility] STORE [id number], 155, cm, 10/18/22 15:26:00 EDT, Height Start Date: 11/17/22 Status: Ordered omeprazole 20 mg oral delayed release tablet 1 tablet = 20 mg, By Mouth, Daily, # 90 tablet, 1 Refills, Maintenance, 06/10/22 10:49:00 EST, EC Tablet, [facility]/pharmacy #0315, Partial fill upon patient [...] 10/19/22 8:31:00... Start Date: 10/19/22 Status: Ordered semaglutide 0.25 mg/0.5 mL (0.25 mg dose) subcutaneous solution = 0.25 mg, Subcutaneous Injection, Every week, for 4 week(s), in the abdomen, thigh, or upper arm, # 2 mL, 0 Refills, Acute 05/14/23 13:07:00 EST, 04/16/23 13:07:00 EST, Solution, [facility]/pharmacy #0315,Partial fill upon patient request if the prescripti... Start Date: 04/16/23 Stop Date: 05/14/23 Status: Ordered SUMAtriptan 50 mg oral tablet 1 tablet = 50 mg, By Mouth, Once, PRN as needed for migraine headache, may repeat dose after 2 hours up to a maximum of 200 mg in 24 hours, # 9 tablet, 0 Refills, Soft Stop, 11/02/21 14:41:00 EDT, Tablet, [facility]/pharmacy #0315, Partial fill upon patient... [...] Team Personnel Name: Diana Lam MD Position: [facility] Resident Member Role: PCP Address: Address: [address] [facility] [place] [address]- Care Team Related Persons Name: JONATHAN MUNROE Address: home [address] [place] [address] Name: NADIR VALENZUELA Address: home [address] [place] [address] Name: JONATHAN VALENZUELA Name: TANK BANKS Address: [place] [address]
--- OUTSIDE RECORDS SUMMARY | 2023-07-12 09:22 | XMS_ITS | Continuity of Care Document ---
Author Name Unknown Organization [facility] Adult Medicine Address [address] [place] [address]- Care Team Providers Care Animal Husbandry Teacher Name Role Phone Leilani ELLIS, Breezy Gerard Primary Care Physician En[place] [facility] Date(s): 03/26/21 - 04/25/21 [facility] Medicine [address] [place] [id number] Allergies, Adverse Reactions, Alerts Substance Reaction [...] 6 08/23/08 Given 1Result Comment: [05/13/2014] Fluvirax [id number] 2Admin Note: vis given 11/29/11 3Admin Note: VIS GIVEN-DATE12/21/07 4Admin Note: VIS given 06/22/11 5Admin Note: VIS 2011 GIVEN 6Admin Note: vis given Medications naproxen 375 mg oral tablet 375 mg, 1, tablet, By Mouth, 2 times a day, for pain. take with food., # 30 tablet, Refills 0, Tot.Refills 0, Maintenance, 01/19/21 17:26:00 EDT, Route to Pharmacy Electronically, [facility]/pharmacy #0315, Partial fill upon patient request [...]
--- OUTSIDE RECORDS SUMMARY | 2023-07-12 09:22 | XMS_ITS | Continuity of Care Document ---
Author Name Unknown Organization [facility] Adult Medicine Address [address] [place] [address]- Care Team Providers Care Boilermaker Apprentice Name Role Phone Leilani ELLIS, Breezy Gerard Primary Care Physician [facility] Date(s): 04/20/21 - 05/20/21 [facility] Adult Medicine [address] [place] [address]- Attending Physician: Admtr, Ar8 Allergies, Adverse Reactions, Alerts Substance Reaction Severity [...] 6 08/23/08 Given 1Result Comment: [05/13/2014] Fluvirax [id number] 2Admin Note: vis given 11/29/11 3Admin Note: VIS GIVEN-DATE12/21/07 4Admin Note: VIS given 06/22/11 5Admin Note: VIS 2011 GIVEN 6Admin Note: vis given Medications naproxen 375 mg oral tablet 375 mg, 1, tablet, By Mouth, 2 times a day, for pain. take with food., # 30 tablet, Refills 0, Tot.Refills 0, Maintenance, 01/19/21 17:26:00 EDT, Route to Pharmacy Electronically, [facility]/pharmacy #0318, Partial fill upon patient request if [...]
--- OUTSIDE RECORDS SUMMARY | 2023-07-12 09:22 | XMS_ITS | Continuity of Care Document ---
Author Name Unknown Organization [facility] Adult Medicine Address [address] [place] [address]- Care Team Providers Care Process Coordinator Name Role Phone Leilani ELLIS, Breezy Gerard Primary Care Physician [facility] Date(s): 11/02/21 - 12/02/21 [facility] Medicine [address] [place] [id number] Allergies, Adverse Reactions, Alerts [...] 6 08/23/08 Given 1Result Comment: [05/13/2014] Fluvirax [id number] 2Admin Note: vis given 11/29/11 3Admin Note: [...]
--- OUTSIDE RECORDS SUMMARY | 2023-07-12 09:22 | XMS_ITS | Continuity of Care Document ---
Author Name Unknown Organization [facility] Adult Medicine Address [address] [place] [address]- Care Team Providers Care Rehabilitation Technician Name Role Phone Leilani ELLIS, Breezy Gerard Primary Care Physician [facility]s): 04/16/22 - 07/03/22 [facility] Adult Medicine [address] [place] [id number] Attending Physician: Christian Sotomayor MD Admitting Physician: [...] 6 08/23/08 Given 1Result Comment: [05/13/2014] Fluvirax [id number] 2Admin Note: vis given 11/29/11 3Admin Note: [...] Gm, 3 Refills, Maintenance, 04/19/22 15:38:00 EST, [place], [facility], Partial fill upon patient request if the prescription is for a schedule II opioid drug., 1 sprays Nares, Both 2 times a day, 155,... Start Date: 04/19/22 Status: Ordered hydrochlorothiazide-olmesartan 12.5 mg-20 mg oral tablet 1 tablet, By Mouth, Daily, # 60 tablet, 1 Refills, Maintenance, 06/10/22 10:41:00 EST, Tablet, [facility]/pharmacy #0315, Partial fill upon [...] 11/02/21 14:45:00 EDT, Route to Pharmacy Electronically, [facility]/pharmacy #0315, Partial fill upon [...] 04/13/22 15:56:00 EST, Route to Pharmacy Electronically, [facility]/pharmacy #0315, 155, cm, 02/08/22 15:09:00 EDT, Height Start Date: 04/13/22 Status: Ordered omeprazole 20 mg oral delayed release tablet 1 tablet = 20 mg, By Mouth, Daily, # 90 tablet, 1 Refills, Maintenance, 06/10/22 10:49:00 EST, EC Tablet, [facility]/pharmacy #0315, Partial fill upon [...] Member Role: PCP Address: Address: [address] [place] [address]- Care Team Related Persons Name: JONATHAN MUNROE Address: home [address] [place] [address] Name: NADIR VALENZUELA Address: home [address] [place] [address] Name: JONATHAN VALENZUELA Name: TANK BANKS Address: home [place], [place]
--- OUTSIDE RECORDS SUMMARY | 2023-07-12 09:22 | XMS_ITS | Continuity of Care Document ---
Author Name Unknown Organization [facility] Adult Medicine Address [address] [place] [address]- Care Team Providers Care Director Hr Communications Name Role Phone Diana Lam MD Primary Care Physician [facility] Date(s): 01/07/23 - 02/06/23 [facility] Adult Medicine [address] [place] [id number] Attending Physician: Admtr, Ar8 Allergies, Adverse Reactions, [...] 6 08/23/08 Given 1Result Comment: [05/13/2014] Fluvirax [id number] 2Admin Note: vis given 11/29/11 3Admin Note: [...] Gm, 3 Refills, Maintenance, 04/19/22 15:38:00 EST, [place], [facility], Partial fill upon patient request [...] tablet, 11 Refills, Maintenance, 10/18/22 15:46:00 EDT, [facility]/pharmacy #0315, 1 tablet By Mouth Daily,x90 days, 155, cm, 10/18/22 15:26:00 EDT, Height Start Date: 10/18/22 Stop Date: 10/02/25 Status: Ordered lidocaine 5% topical ointment 1 application, Topically, 3 times a day, PRN Pain , Moderate, # 50 Gm, 0 Refills, Maintenance, 10/04/22 18:35:00 EDT, Ointment, [facility]/pharmacy #0315, Partial fill upon patient request [...] 11/17/22 23:10:00 EDT, Route to Pharmacy Electronically, [facility] STORE 45495, 155, cm, 10/18/22 15:26:00 EDT, Height Start Date: 11/17/22 Status: Ordered omeprazole 20 mg oral delayed release tablet 1 tablet = 20 mg, By Mouth, Daily, # 90 tablet, 1 Refills, Maintenance, 06/10/22 10:49:00 EST, EC Tablet, [facility]/pharmacy #0315, Partial fill upon patient request [...] Refills, Soft Stop, 11/02/21 14:41:00 EDT, Tablet, [facility]/pharmacy #0315, Partial fill upon patient... Start Date: 11/02/21 Status: Ordered Ventolin HFA 108 mcg/inh inhalation aerosol with adapter 1 puffs, Inhalation, 4 times a day, PRN for wheezing, # 8 Gm, 2 Refills, Maintenance, 04/23/22 9:19:00 EST, Aerosol, [facility]/pharmacy #0315, Partial fill upon patient request [...] Status Never smoker entered on: 09/05/14 Sex EKG study * Event Display: EKG Authored Date: Laboratory * Event Display: Non BH Lab Results Authored Date: * Event Display: Non BH Lab Results Authored Date: Radiology * Event Display: MRI Spine, Non- BH Authored Date: * Event Display: CT Scan Pelvis, Non- BH Authored Date: * Event Display: CT Scan Pelvis, Non- BH Authored Date: * Event Display: IR Special Procedures, Non-BH Authored Date: * Event Display: CT Scan Pelvis, Non- BH Authored Date: * Event Display: IR Special Procedures, Non-BH Authored Date: * Event Display: CT Scan Abdomen, Non- BH Authored Date: * Event Display: Ultrasound Abdomen, Non-BH Authored Date: * Event Display: X-Ray Chest, Non- BH Authored Date: * Event Display: Ultrasound Lower Extremity, Non-BH Authored Date: * Event Display: Ultrasound Lower Extremity, Non-BH Authored Date: * Event Display: Non BH Radiology Results Authored Date: * Event Display: Non BH Radiology Results Authored Date: * Event Display: Non BH Radiology Results Authored Date: MG Breast Views * Event Display: MM Mammogram Authored Date: Note * Lianna Holt: PERFORM, SIGN, VERIFY Event Display: Patient Education/Instruction Authored Date: [id number] [facility] Clinical Summary Person Information Name BILL VALENZUELA Age 41 Years 1970 12:00 AM PCP Winter ELLIS , Ananth [id number] Reason for Visit: Allergy Info: penicillin Vital Signs Height Weight BMI Blood Pressure / Temperature Pulse Rate Respiratory Rate 02 Sat Mode of Delivery / Medication Information Ibuprofen (ibuprofen 800 mg oral tablet) 1 tablet, Oral, 3 times a day, As Needed, for pain, Refills: 0 Sumatriptan (Imitrex 100 mg oral tablet) 1 tablet, Oral, Tomorrow, may repeat dose after 2 hours upto a maximum of 2, As Needed, for migraine headache, Refills: 0 Topiramate (Topamax 25 mg oral tablet) 1 tablet, Oral, Tomorrow, Take once a day for headache., Refills: 2 Problem List Date Problem 12/04/07 Trochanteric bursitis 10/10/06 Panniculectomy If the following labs have been performed in the last year, the most recent result is displayed below. Diagnostic Results Lab Result Value Date Lead Hemoglobin A1C LDL HDL 43 09/11/10 Triglycerides Total Cholesterol 197 09/11/10 Disclaimer: The information provided is of a general nature and is intended to be used in conjunction with the recommendations and advice of your health care practitioner. Every effort has been made to ensure that the information provided is accurate and complete at the time it is provided to you however, as your needs change, or, as new information becomes available, different or additional instructions may be required. If you have questions, please consult with your primary care provider or pharmacist, as appropriate. This information is not intended to serve as substitution for assessment and evaluation by a qualified health care provider. If you do not have a primary care provider, you may find a [facility] provider by calling [facility] at [phone]. Patient Education Information Follow-up Details: Patient Education Material: Patient Care team information Care Team Personnel Name: Diana Lam MD Position: [facility] Resident Member Role: PCP Address: Address: [address] [facility] [place] [address]- Care Team Related Persons Name: JONATHAN MUNROE Address: home [address] [place] [address] Name: NADIR VALENZUELA Address: home [address] [place] [address] Name: JONATHAN VALENZUELA Name: TANK BANKS Address: [place] [address]
--- OUTSIDE RECORDS SUMMARY | 2023-07-12 09:22 | XMS_ITS | Continuity of Care Document ---
Author Name Unknown Organization [facility] Adult Medicine Address [address] [place] [address]- Care Team Providers Care Clinical Associate Name Role Phone Leilani ELLIS, Breezy Gerard Primary Care Physician Encounter [facility] Date(s): 07/09/21 - 08/08/21 [facility] Adult Medicine [address] [place] [id number] Attending Physician: Christian Sotomayor MD Admitting Physician: Christian Sotoamyor MD Allergies, Adverse Reactions, Alerts Substance Reaction [...] 6 08/23/08 Given 1Result Comment: [05/13/2014] Fluvirax [id number] 2Admin Note: vis given 11/29/11 3Admin Note: VIS GIVEN-DATE12/21/07 4Admin Note: VIS given 06/22/11 5Admin Note: VIS 2011 GIVEN 6Admin Note: vis given Medications diclofenac 1% topical gel 1 application, Topically, 4 times a day, # 100 Gm, 0 Refills, Maintenance, 06/19/21 14:59:00 EST, Gel, [facility]/pharmacy #0315, Partial fill upon patient request if the prescription is for a schedule II opioid drug., 155, cm, 06/19/21 14:39:00 EST, Height Start Date: 06/19/21 Status: Ordered naproxen 375 mg oral tablet 375 mg, 1, tablet, By Mouth, 2 times a day, for pain. take with food., # 30 tablet, Refills 0, Tot.Refills 0, Maintenance, 01/19/21 17:26:00 EDT, Route to Pharmacy Electronically, [facility]/pharmacy #0315, Partial fill upon patient request if the prescript... Start Date: 01/19/21 Status: Ordered SUMAtriptan 25 mg oral tablet 1 tablet = 25 mg, By Mouth, Daily, PRN for migraine headache, may repeat dose after 2 hours up to amaximum of 2. Japanese label, # 9 tablet, 0 Refills, Maintenance, 07/02/21 14:18:00 EST, Tablet, [facility]/pharmacy #0315, Partial fill upon patient request [...]
--- OUTSIDE RECORDS SUMMARY | 2023-07-12 09:22 | XMS_ITS | Continuity of Care Document ---
Author Name Unknown Organization [facility] Address Unknown Care Team Providers Care Life Guard Name Role Phone Leilani ELLIS, Breezy Gerard Primary Care Physician [place] [facility] [place](s): 02/06/21 - 03/08/21 [facility] Allergies, Adverse Reactions, Alerts Substance Reaction Severity [...] 6 08/23/08 Given 1Result Comment: [05/13/2014] Fluvirax [id number] 2Admin Note: vis given 11/29/11 3Admin Note: VIS GIVEN-DATE12/21/07 4Admin Note: VIS given 06/22/11 5Admin Note: VIS 2011 GIVEN 6Admin Note: vis given Medications naproxen 375 mg oral tablet 375 mg, 1, tablet, By Mouth, 2 times a day, for pain. take with food., # 30 tablet, Refills 0, Tot.Refills 0, Maintenance, 01/19/21 17:26:00 EDT, Route to Pharmacy Electronically, [facility]/pharmacy #[id number], Partial fill upon patient request if the [...]
--- OUTSIDE RECORDS SUMMARY | 2023-07-12 09:22 | XMS_ITS | Continuity of Care Document ---
Author Name Unknown Organization [facility]3] Adult Medicine Address [address] [place] [address]- Care Team Providers Care Mechanical Estimator Name Role Phone Leilani ELLIS, Breezy Gerard Primary Care Physician [facility] Date[facility]s): 10/18/22 - 11/17/22 [facility]3] Adult Medicine [address] [place] [id number] Attending Physician: Admtr, Ar8 Allergies, Adverse Reactions, [...] 6 08/23/08 Given 1Result Comment: [05/13/2014] Fluvirax [id number] 2Admin Note: vis given 11/29/11 3Admin Note: [...] EDT, Height Start Date: 11/02/21 Status: Ordered diclofenac 1% topical gel 1 [...] Gm, 3 Refills, Maintenance, 04/19/22 15:38:00 EST, [place], [facility]/pharmacy #[id number], Partial fill [...] tablet, 11 Refills, Maintenance, 10/18/22 15:46:00 EDT, [facility]/pharmacy #[id number], 1 tablet By Mouth Daily,x90 days, 155, cm, 10/18/22 15:26:00 EDT, Height Start Date: 10/18/22 Stop Date: 10/02/25 Status: Ordered ibuprofen 800 mg oral tablet 800 mg, 1, tablet, By Mouth, 3 times a day, PRN, # 30 tablet, Refills 0, Tot. Refills 0, Maintenance, for pain, 11/02/21 14:45:00 EDT, Route to Pharmacy Electronically, [facility]/pharmacy #0315, Partial fill upon patient request if the prescription is for a... Start Date: 11/02/21 Status: Ordered lidocaine 5% topical ointment 1 application, Topically, 3 times a day, PRN Pain , Moderate, # 50 Gm, 0 Refills, Maintenance, 10/04/22 18:35:00 EDT, Ointment, [facility]/pharmacy #[id number], Partial fill [...] 11/17/22 23:10:00 EDT, Route to Pharmacy Electronically, [facility] STORE [id number], 155, cm, 10/18/22 15:26:00 EDT, Height Start Date: 11/17/22 Status: Ordered omeprazole 20 mg oral delayed release tablet 1 tablet = 20 mg, By Mouth, Daily, # 90 tablet, 1 Refills, Maintenance, 06/10/22 10:49:00 EST, [place] Tablet, [facility]/pharmacy #0315, Partial [...] Refills, Soft Stop, 11/02/21 14:41:00 EDT, Tablet, [facility]/pharmacy #0315, Partial fill upon patient... [...] Results Authored Date: Radiology * Event Display: CT Scan Pelvis, Non- [...] VERIFY Event Display: Patient Education/Instruction Authored Date: [facility] Clinical Summary Person Information Name BILL VALENZUELA Age 41 Years 1970 12:00 AM PCP Winter ELLIS , Ananth You PCP Reason for Visit: Allergy Info: penicillin Vital [...] HDL 43 09/11/10 Triglycerides Total Cholesterol 197 04/15/11 Disclaimer: The information provided is of a [...] primary care provider, you may find a [facility] provider by calling [facility] at [phone]. Patient Education Information Follow-up Details: Patient Education Material: Patient Care team information Care Team Personnel Name: Breezy Duke MD Position: S Resident Member Role: PCP Address: Address: [address] [place] [address]- Care Team Related Persons Name: JONATHAN MUNROE Address: home [address] [place] [address] Name: NADIR VALENZUELA Address: home [address] [place] [address] Name: JONATHAN VALENZUELA Name: TANK BANKS Address: [place] [address]
--- OUTSIDE RECORDS SUMMARY | 2023-07-12 09:22 | XMS_ITS | Continuity of Care Document ---
Author Name Unknown Organization [facility] Address [address] [place] [address]- Care Team Providers Care Pharmacy Coordinator Name Role Phone Leilani ELLIS, Breezy Gerard Primary Care Physician [place] [facility] [place] 07[place]/22 [facility] [address] [place] [id number] [place] Allergies, Adverse Reactions, Alerts Substance Reaction Severity [...] 6 08/23/08 Given 1Result Comment: [05/13/2014] Fluvirax [id number] 2Admin Note: vis given 11/29/11 3Admin Note: [...] Gm, 3 Refills, Maintenance, 04/19/22 15:38:00 EST, [place], [facility], Partial fill upon patient request if the prescription is for a schedule II opioid drug., 1 sprays Nares, Both 2 times a day, 155,... Start Date: 04/19/22 Status: Ordered hydrochlorothiazide-olmesartan 12.5 mg-20 mg oral tablet 1 tablet, By Mouth, Daily, # 60 tablet, 1 Refills, Maintenance, 06/10/22 10:41:00 EST, Tablet, [facility]/pharmacy #0315, Partial fill upon patient request if [...] 11/02/21 14:45:00 EDT, Route to Pharmacy Electronically, [facility]/pharmacy #0315, Partial fill upon patient request if [...] 04/13/22 15:56:00 EST, Route to Pharmacy Electronically, [facility]/pharmacy #0315, 155, cm, 02/08/22 15:09:00 EDT, Height Start Date: 04/13/22 Status: Ordered omeprazole 20 mg oral delayed release tablet 1 tablet = 20 mg, By Mouth, Daily, # 90 tablet, 1 Refills, Maintenance, 06/10/22 10:49:00 EST, [place] Tablet, [facility]/pharmacy #0315, Partial fill upon patient request if [...] Team Personnel Name: Breezy Duke MD Position: [facility] Resident Member Role: PCP Address: Address: [address] [facility] [place] [address]- Care Team Related Persons Name: JONATHAN MUNROE Address: home [address] [place] [address] Name: NADIR VALENZUELA Address: home [address] [place] [address] Name: JONATHAN VALENZUELA Name: TANK BANKS Address: [place] [address]
--- OUTSIDE RECORDS SUMMARY | 2023-07-12 09:22 | XMS_ITS | Continuity of Care Document ---
Author Name Unknown Organization [facility] Address [address] [place] [address]- Care Team Providers Care Home Paraprofessional Name Role Phone Leilani ELLIS, Breezy Gerard Primary Care Physician [facility] Date[facility]s): 10/19/21 - 11/18/21 [facility] [address] [place], [place] [address] Attending Physician: Brittanie Larson Admitting Physician: AdmtrBrittanie Referring Physician: Admtr, Ar8 Allergies, Adverse Reactions, Alerts [...] 6 08/23/08 Given 1Result Comment: [05/13/2014] Fluvirax [id number] 2Admin Note: vis given 11/29/11 3Admin Note: VIS GIVEN-DATE12/21/07 4Admin Note: VIS given 06/22/11 5Admin Note: VIS 2012 GIVEN 6Admin Note: vis given Medications Blood [...]
--- OUTSIDE RECORDS SUMMARY | 2023-07-12 09:22 | XMS_ITS | Continuity of Care Document ---
Author Name Unknown Organization [facility] Address [address] [place] [address]- Care Team Providers Care Manager Coding Name Role Phone Genaro ELLIS, Diana Primary Care Physician [facility] Date[facility]s): 04/22/23 - 05/22/23 [facility] [address] [place] [id number] Allergies, Adverse Reactions, Alerts [...] 6 08/23/08 Given 1Result Comment: [05/13/2014] Fluvirax [id number] 2Admin Note: vis given 11/29/11 3Admin Note: [...] Gm, 3 Refills, Maintenance, 04/19/22 15:38:00 EST, [place], [facility], Partial fill upon patient request [...] tablet, 11 Refills, Maintenance, 10/18/22 15:46:00 EDT, [facility]/pharmacy [facility]0315, 1 tablet By Mouth Daily,x90 days, 155, cm, 10/18/22 15:26:00 EDT, Height Start Date: 10/18/22 Stop Date: 10/02/25 Status: Ordered lidocaine 5% topical ointment 1 application, Topically, 3 times a day, PRN Pain , Moderate, # 50 Gm, 0 Refills, Maintenance, 10/04/22 18:35:00 EDT, Ointment, [facility]/pharmacy #0315, Partial fill upon patient request if [...] 11/17/22 23:10:00 EDT, Route to Pharmacy Electronically, [facility] STORE 95538, 155, cm, 10/18/22 15:26:00 EDT, Height Start Date: 11/17/22 Status: Ordered omeprazole 20 mg oral delayed release tablet 1 tablet = 20 mg, By Mouth, Daily, # 90 tablet, 1 Refills, Maintenance, 06/10/22 10:49:00 EST, EC Tablet, [facility]/pharmacy #0315, Partial fill upon patient request if [...] Refills, Soft Stop, 11/02/21 14:41:00 EDT, Tablet, [facility]/pharmacy #0315, Partial fill upon patient... Start Date: [...] Team Personnel Name: Diana Lam MD Position: [facility] Resident Member Role: PCP Address: Address: [address] [place] [address] [place] [address]- Care Team Related Persons Name: JONATHAN MUNROE Address: home [address] [place] [address] Name: NADIR VALENZUELA Address: home [address] [place] [address] Name: JONATHAN VALENZUELA Name: TANK BANKS Address: [place] [address]
--- OUTSIDE RECORDS SUMMARY | 2023-07-12 09:22 | XMS_ITS | Continuity of Care Document ---
Author Name Unknown Organization [facility] Address [address] [place] [address]- Care Team Providers Care Metal Sprayer Production Name Role Phone Leilani ELLIS, Breezy Gerard Primary Care Physician En[place] [facility] [place] Date(s): 03/26/21 - 04/25/21 [facility] [address] [place] [id number] Allergies, Adverse Reactions, Alerts Substance Reaction Severity [...] 6 08/23/08 Given 1Result Comment: [05/13/2014] Fluvirax [id number] 2Admin Note: vis given 11/29/11 3Admin Note: VIS GIVEN-DATE12/21/07 4Admin Note: VIS given 06/22/11 5Admin Note: VIS 2011 GIVEN 6Admin Note: vis given Medications naproxen 375 mg oral tablet 375 mg, 1, tablet, By Mouth, 2 times a day, for pain. take with food., # 30 tablet, Refills 0, Tot.Refills 0, Maintenance, 01/19/21 17:26:00 EDT, Route to Pharmacy Electronically, [facility]/pharmacy #3654, Partial fill upon patient request if the [...]
--- OUTSIDE RECORDS SUMMARY | 2023-07-12 09:22 | XMS_ITS | Continuity of Care Document ---
Author Name Unknown Organization [facility] Address [address] [place] [address]- Care Team Providers Care Chimney Builder Brick Name Role Phone Genaro ELLIS, Diana Primary Care Physician [phone] [place] [facility] [place]18/23 - 03/11/[address] [address] Attending Physician: Nayan TOLEDO, Raven Mancera Admitting [...] influenza virus vaccine, inactivated 3 02/12/09 Gi ilz tetanus/diphtheria/pertussis, acel(Tdap) 05/04/17 Recorded tetanus/diphtheria/pertussis, acel(Tdap) 4 12/14/12 Given hepatitis B adult vaccine 06/27/13 Given hepatitis B adult vaccine 01/15/13 Given hepatitis B adult vaccine 5 12/14/12 Given Tetanus-Diphth Toxoids, Adult (oldterm) 6 08/23/08 Given 1Result Comment: [05/13/2014] Fluvirax [id number] 2Admin Note: vis given 11/29/11 3Admin Note: [...] Gm, 3 Refills, Maintenance, 04/19/22 15:38:00 EST, [place], [facility]/pharmacy #0315, Partial fill upon patient request if [...] 11 Refills, Maintenance, 10/18/22 15:46:00 EDT, [facility]/pharmacy #0315, 1 tablet By Mouth Daily,x90 days, 155, cm, 10/18/22 15:26:00 EDT, Height Start Date: 10/18/22 Stop Date: 10/02/25 Status: Ordered lidocaine 5% topical ointment 1 application, Topically, 3 times a day, PRN Pain , Moderate, # 50 Gm, 0 Refills, Maintenance, 10/04/22 18:35:00 EDT, Ointment, [facility]/pharmacy #0315, Partial fill upon patient request if [...] 11/17/22 23:10:00 EDT, Route to Pharmacy Electronically, [facility] STORE 01773, 155, cm, 10/18/22 15:26:00 EDT, Height Start Date: 11/17/22 Status: Ordered omeprazole 20 mg oral delayed release tablet 1 tablet = 20 mg, By Mouth, Daily, # 90 tablet, 1 Refills, Maintenance, 06/10/22 10:49:00 EST, [place] Tablet, [facility]/pharmacy #0315, Partial fill upon patient request if [...] Refills, Soft Stop, 11/02/21 14:41:00 EDT, Tablet, [facility]/pharmacy #0315, Partial fill upon patient... Start Date: 11/02/21 Status: Ordered Ventolin HFA 108 mcg/inh inhalation aerosol with adapter 1 puffs, Inhalation, 4 times a day, PRN for wheezing, # 8 Gm, 2 Refills, Maintenance, 04/23/22 9:19:00 EST, [place], [facility]/pharmacy #0315, Partial fill upon patient request if [...] Team Personnel Name: Diana Lam MD Position: [facility] Resident Member Role: PCP Address: Address: [address] [place] [address]- Care Team Related Persons Name: JONATHAN MUNROE Address: home [address] [place] [address] Name: NADIR VALENZUELA Address: home [address] [place] [address] Name: JONATHAN VALENZUELA Name: TANK BANKS Address: [place] [address]
--- OUTSIDE RECORDS SUMMARY | 2023-07-12 09:22 | XMS_ITS | Continuity of Care Document ---
Author Name Unknown Organization [facility] Adult [facility] Address [address] [place] [address]- Care Team Providers Care Rehab Director Occupational Therapist Name Role Phone Leilani ELLIS, Breezy Gerard Primary Care Physician [facility] Date(s): 07/02/21 - 08/02/21 [facility] [address] [place] [id number] Attending Physician: Not on Staff, Attending MD [...] 6 08/23/08 Given 1Result Comment: [05/13/2014] Fluvirax [id number] 2Admin Note: vis given 11/29/11 3Admin Note: [...] 01/19/21 17:26:00 EDT, Route to Pharmacy Electronically, [facility]/pharmacy #0315, Partial fill upon patient request if the prescript... Start Date: 01/19/21 Status: Ordered SUMAtriptan 25 mg oral tablet 1 tablet = 25 mg, By Mouth, Daily, PRN for migraine headache, may repeat dose after 2 hours up to amaximum of 2. Latvian label, # 9 tablet, 0 Refills, Maintenance, 07/02/21 14:18:00 EST, Tablet, [facility]/pharmacy #0315, Partial fill upon patient [...]
--- OUTSIDE RECORDS SUMMARY | 2023-07-12 09:22 | XMS_ITS | Continuity of Care Document ---
Author Name Unknown Organization [facility] Address [address] [place] [address]- Care Team Providers Care Plans Examiner Name Role Phone Leilani ELLIS, Breezy Gerard Primary Care Physician [facility] 07[facility]21 - 08/05/21 [facility] [address] [place] [id number] Allergies, Adverse Reactions, Alerts Substance Reaction [...] 6 08/23/08 Given 1Result Comment: [05/13/2014] Fluvirax [id number] 2Admin Note: vis given 11/29/11 3Admin Note: VIS GIVEN-DATE12/21/07 4Admin Note: VIS given 06/22/11 5Admin Note: VIS 2011 GIVEN 6Admin Note: vis given Medications diclofenac 1% topical gel 1 application, Topically, 4 times a day, # 100 Gm, 0 Refills, Maintenance, 06/19/21 14:59:00 EST, [place], [id number], Partial fill upon patient request if the prescription is for a schedule II opioid drug., 155, cm, 06/19/21 14:39:00 EST, Height Start Date: 06/19/21 Status: Ordered naproxen 375 mg oral tablet 375 mg, 1, tablet, By Mouth, 2 times a day, for pain. take with food., # 30 tablet, Refills 0, Tot.Refills 0, Maintenance, 01/19/21 17:26:00 EDT, Route to Pharmacy Electronically, [facility]/pharmacy #0315, Partial fill upon patient request if the prescript... Start Date: 01/19/21 Status: Ordered SUMAtriptan 25 mg oral tablet 1 tablet = 25 mg, By Mouth, Daily, PRN for migraine headache, may repeat dose after 2 hours up to amaximum of 2. Mongolian label, # 9 tablet, 0 Refills, Maintenance, 07/02/21 14:18:00 EST, Tablet, [facility]/pharmacy #0315, Partial fill upon patient request i... [...]
--- OUTSIDE RECORDS SUMMARY | 2023-07-12 09:23 | XMS_ITS | Continuity of Care Document ---
Author Name Unknown Organization [facility] Address [address] [place] [address]- Care Team Providers Care Plant Technician/Control Room Operator Name Role Phone Genaro ELLIS, Diana Primary Care Physician [phone] [facility] 01/17[facility]23 - 02/16/23 [facility] [address] [place] [id number] Allergies, Adverse Reactions, Alerts Substance [...] 6 08/23/08 Given 1Result Comment: [05/13/2014] Fluvirax [id number] 2Admin Note: vis given 11/29/11 3Admin Note: [...] Gm, 3 Refills, Maintenance, 04/19/22 15:38:00 EST, [place], [facility], Partial fill upon patient request [...] 11 Refills, Maintenance, 10/18/22 15:46:00 EDT, [facility]/pharmacy #0315, 1 tablet By Mouth Daily,x90 days, 155, cm, 10/18/22 15:26:00 EDT, Height Start Date: 10/18/22 Stop Date: 10/02/25 Status: Ordered lidocaine 5% topical ointment 1 application, Topically, 3 times a day, PRN Pain , Moderate, # 50 Gm, 0 Refills, Maintenance, 10/04/22 18:35:00 EDT, Ointment, [facility]/pharmacy #0315, [...] 11/17/22 23:10:00 EDT, Route to Pharmacy Electronically, [facility] 99484, 155, cm, 10/18/22 15:26:00 EDT, Height Start [...] Soft Stop, 11/02/21 14:41:00 EDT, Tablet, [facility]/pharmacy #0315, Partial fill upon patient... Start Date: [...] Team Personnel Name: Diana Lam MD Position: [facility] Resident Member Role: PCP Address: Address: [address] [place] [address] [place] [address]- Care Team Related Persons Name: JONATHAN MUNROE Address: home [address] [place] [address] Name: NADIR VALENZUELA Address: home [address] [place] [address] Name: JONATHAN VALENZUELA Name: TANK BANKS Address: [place] [address]
--- OUTSIDE RECORDS SUMMARY | 2023-07-12 09:23 | XMS_ITS | Continuity of Care Document ---
Author Name Unknown Organization [facility] Address [address] [place] [address]- Care Team Providers Care Recreation Activities Coordinator Name Role Phone Genaro ELLIS, Diana Primary Care Physician [phone] [facility] 12/06/22 - 01/05/23 [facility] [address] [place] [id number] Allergies, Adverse Reactions, Alerts [...] 6 08/23/08 Given 1Result Comment: [05/13/2014] Fluvirax [id number] 2Admin Note: vis given 11/29/11 3Admin Note: [...] Gm, 3 Refills, Maintenance, 04/19/22 15:38:00 EST, [place], [facility]/pharmacy #0315, Partial fill upon patient [...] 11 Refills, Maintenance, 10/18/22 15:46:00 EDT, [facility]/pharmacy #0315, 1 tablet By Mouth Daily,x90 days, 155, cm, 10/18/22 15:26:00 EDT, Height Start Date: 10/18/22 Stop Date: 10/02/25 Status: Ordered lidocaine 5% topical ointment 1 application, Topically, 3 times a day, PRN Pain , Moderate, # 50 Gm, 0 Refills, Maintenance, 10/04/22 18:35:00 EDT, Ointment, [facility]/pharmacy #0315, Partial fill upon patient [...] 23:10:00 EDT, Route to Pharmacy Electronically, [facility] STORE 42194, 155, cm, 10/18/22 15:26:00 EDT, Height Start Date: 11/17/22 Status: Ordered omeprazole 20 mg oral delayed release tablet 1 tablet = 20 mg, By Mouth, Daily, # 90 tablet, 1 Refills, Maintenance, 06/10/22 10:49:00 EST, EC Tablet, [facility]/pharmacy #0315, Partial fill upon patient [...] Soft Stop, 11/02/21 14:41:00 EDT, Tablet, [facility]/pharmacy #0315, Partial fill upon patient... [...] Team Personnel Name: Diana Lam MD Position: [facility] Resident Member Role: PCP Address: Address: [address] [place] [address] [place] [address]- Care Team Related Persons Name: JONATHAN MUNROE Address: home [address] [place] [address] Name: NADIR VALENZUELA Address: home [address] [place] [address] Name: JONATHAN VALENZUELA Name: TANK BANKS Address: [place] [address]
--- OUTSIDE RECORDS SUMMARY | 2023-07-12 09:23 | XMS_ITS | Continuity of Care Document ---
Author Name Unknown Organization [facility] Address [address] [place] [address]- Care Team Providers Care Digital Content Producer Name Role Phone Leilani ELLIS, Breezy Gerard Primary Care Physician [facility] 07/05[facility]22 - 08/04/22 [facility] [address] [place], [place] [address] Allergies, Adverse Reactions, Alerts Substance [...] 6 08/23/08 Given 1Result Comment: [05/13/2014] Fluvirax [id number] 2Admin Note: vis given 11/29/11 3Admin Note: [...] Gm, 3 Refills, Maintenance, 04/19/22 15:38:00 EST, [place], [facility], Partial fill upon patient request if the prescription is for a schedule II opioid drug., 1 sprays Nares, Both 2 times a day, 155,... Start Date: 04/19/22 Status: Ordered hydrochlorothiazide-olmesartan 12.5 mg-20 mg oral tablet 1 tablet, By Mouth, Daily, # 60 tablet, 1 Refills, Maintenance, 06/10/22 10:41:00 EST, Tablet, [facility]/pharmacy #0315, [...] 11/02/21 14:45:00 EDT, Route to Pharmacy Electronically, [facility]/pharmacy #0315, Partial [...] 04/13/22 15:56:00 EST, Route to Pharmacy Electronically, [facility]/pharmacy #0315, 155, cm, 02/08/22 15:09:00 [...] Role: PCP Address: Address: [address] [facility] [place] [address]- Care Team Related Persons Name: JONATHAN MUNROE Address: home [address] [place] [address] Name: NADIR VALENZUELA Address: home [address] [place] [address] Name: JONATHAN VALENZUELA Name: TANK ABNKS Address: [place] [address]
--- OUTSIDE RECORDS SUMMARY | 2023-07-12 09:23 | XMS_ITS | Continuity of Care Document ---
Author Name Unknown Organization [facility] Address [address] [place] [address]- Care Team Providers Care Balloon Pilot Name Role Phone Genaro ELLIS, Diana Primary Care Physician [phone] [facility] - 01/07/23 [facility] [address] [place] [id number] Allergies, Adverse Reactions, Alerts Substance Reaction Severity [...] 6 08/23/08 Given 1Result Comment: [05/13/2014] Fluvirax [id number] 2Admin Note: vis given 11/29/11 3Admin Note: [...] Gm, 3 Refills, Maintenance, 04/19/22 15:38:00 EST, [place], [facility]/pharmacy #[id number], Partial fill upon patient request [...] tablet, 11 Refills, Maintenance, 10/18/22 15:46:00 EDT, [facility]/pharmacy #[id number], 1 tablet By Mouth Daily,x90 days, 155, cm, 10/18/22 15:26:00 EDT, Height Start Date: 10/18/22 Stop Date: 10/02/25 Status: Ordered lidocaine 5% topical ointment 1 application, Topically, 3 times a day, PRN Pain , Moderate, # 50 Gm, 0 Refills, Maintenance, 10/04/22 18:35:00 EDT, Ointment, [facility]/pharmacy #[id number], Partial fill upon patient request [...] 11/17/22 23:10:00 EDT, Route to Pharmacy Electronically, [facility] STORE [id number], 155, cm, 10/18/22 15:26:00 EDT, Height Start Date: 11/17/22 Status: Ordered omeprazole 20 mg oral delayed release tablet 1 tablet = 20 mg, By Mouth, Daily, # 90 tablet, 1 Refills, Maintenance, 06/10/22 10:49:00 EST, [place] Tablet, [facility]/pharmacy #[id number], Partial fill upon patient request [...] Refills, Soft Stop, 11/02/21 14:41:00 EDT, Tablet, [facility]/pharmacy #[id number], Partial fill upon patient... Start [...] HOSPITAL Resident Member Role: PCP Address: Address: [address] [place] [address] [place] [address]- Care Team Related Persons Name: JONATHAN MUNROE Address: home [address] [place] [address] Name: NADIR VALENZUELA Address: home [address] [place] [address] Name: JONATHAN VALENZUELA Name: TANK BANKS Address: [place] [address]
--- OUTSIDE RECORDS SUMMARY | 2023-07-12 09:23 | XMS_ITS | Continuity of Care Document ---
Author Name Unknown Organization [facility] Address [address] [place] [address]- Care Team Providers Care Multiple Pressure Riveter Operator Name Role Phone Leilani ELLIS, Breezy Gerard Primary Care Physician [facility]21 - 12/12/21 [facility] [address] [place] [id number] Allergies, Adverse Reactions, Alerts Substance Reaction [...] 6 08/23/08 Given 1Result Comment: [05/13/2014] Fluvirax [id number] 2Admin Note: vis given 11/29/11 3Admin Note: [...]
--- OUTSIDE RECORDS SUMMARY | 2023-07-12 09:23 | XMS_ITS | Continuity of Care Document ---
Author Name Unknown Organization [facility] Address [address] [place] [address]- Care Team Providers Care College Administrator Name Role Phone Leilani ELLIS, Breezy Gerard Primary Care Physician [facility]s): 08/17/22 - 09/16/22 [facility] [address] [place] [address] Attending Physician: Not on Staff, Attending MD [...] 6 08/23/08 Given 1Result Comment: [05/13/2014] Fluvirax [id number] 2Admin Note: vis given 11/29/11 3Admin Note: [...] EDT, Supply Start Date: 11/16/21 Status: Ordered capsaicin 0.025% topical cream 1 application, Topically, 3 times a day, avoid contact with face and eyes, # 60 Gm, 0 Refills, Acute 09/17/22 15:15:00 EDT, 08/17/22 15:15:00 EDT, [place], [id number], Partial fill upon patientrequest if the prescription is for a schedule II op... Start Date: 08/17/22 Stop Date: 09/17/22 Status: Ordered cetirizine 10 mg oral tablet [...] Gm, 3 Refills, Maintenance, 04/19/22 15:38:00 EST, [place], [facility]/pharmacy #0315, Partial fill upon patient request if the prescription is for a schedule II opioid drug., 1 sprays Nares, Both 2 times a day, 155,... Start Date: 04/19/22 Status: Ordered hydrochlorothiazide-olmesartan 12.5 mg-20 mg oral tablet 1 tablet, By Mouth, Daily, # 60 tablet, 0 Refills, Maintenance, 09/06/22 8:35:00 EDT, [facility] STORE 04451, 60, TAKE 1 TABLET BY MOUTH EVERY DAY, 155, cm, 08/17/22 14:38:00 EDT, Height Start Date: 09/06/22 Status: Ordered ibuprofen 800 mg oral tablet 800 mg, 1, tablet, By Mouth, 3 times a day, PRN, # 30 tablet, Refills 0, Tot. Refills 0, Maintenance, for pain, 11/02/21 14:45:00 EDT, Route to Pharmacy Electronically, [facility]/pharmacy #0315, Partial fill upon patient [...] 04/13/22 15:56:00 EST, Route to Pharmacy Electronically, [facility]/pharmacy #0315, 155, cm, 02/08/22 15:09:00 EDT, [...] 2 Refills, Maintenance, 04/23/22 9:19:00 EST, Aerosol, [facility]/pharmacy #0315, Partial fill upon patient [...] Resident Member Role: PCP Address: Address: [address] [facility] [place] [address]- Care Team Related Persons Name: JONATHAN MUNROE Address: home [address] [place] [address] Name: NADIR VALENZUELA Address: home [address] [place] [address] Name: JONATHAN VALENZUELA Name: TANK BANKS Address: [place] [address]
--- OUTSIDE RECORDS SUMMARY | 2023-07-12 09:23 | XMS_ITS | Continuity of Care Document ---
Author Name Unknown Organization [facility] Adult [facility] Address [address] [place] [address]- Care Team Providers Care Machine Cleaner Name Role Phone Leilani ELLIS, Breezy Gerard Primary Care Physician [facility] 07/07/21 - 08/08/21 [facility] [address] [place] [id number] Attending Physician: Not on [...] 6 08/23/08 Given 1Result Comment: [05/13/2014] Fluvirax [id number] 2Admin Note: vis given 11/29/11 3Admin Note: [...] to Pharmacy Electronically, [facility]/pharmacy #0315, Partial fill upon patient request if the prescript... Start Date: 01/19/21 Status: Ordered SUMAtriptan 25 mg oral tablet 1 tablet = 25 mg, By Mouth, Daily, PRN for migraine headache, may repeat dose after 2 hours up to amaximum of 2. Hungarian label, # 9 tablet, 0 Refills, Maintenance, 07/02/21 14:18:00 EST, Tablet, [facility]/pharmacy #0315, Partial fill upon patient request i... [...]
--- OUTSIDE RECORDS SUMMARY | 2023-07-12 09:23 | XMS_ITS | Continuity of Care Document ---
Author Name Unknown Organization [facility] Adult Medicine Address [address] [place] [address]- Care Team Providers Care Shear Grinder Operator Name Role Phone Leilani ELLIS, Breezy Gerard Primary Care Physician [facility]s): 09/16/22 - 10/16/22 [facility] Adult Medicine [address] [place], [place] [address] Allergies, Adverse Reactions, Alerts Substance Reaction [...] 6 08/23/08 Given 1Result Comment: [05/13/2014] Fluvirax [id number] 2Admin Note: vis given 11/29/11 3Admin Note: [...] Gm, 3 Refills, Maintenance, 04/19/22 15:38:00 EST, [place], [facility]/pharmacy #0315, Partial fill upon patient request if the prescription is for a schedule II opioid drug., 1 sprays Nares, Both 2 times a day, 155,... Start Date: 04/19/22 Status: Ordered hydrochlorothiazide-olmesartan 12.5 mg-20 mg oral tablet 1 tablet, By Mouth, Daily, # 60 tablet, 0 Refills, Maintenance, 09/06/22 8:35:00 EDT, [facility], 60, TAKE 1 TABLET BY MOUTH EVERY DAY, 155, cm, 08/17/22 14:38:00 EDT, Height Start Date: 09/06/22 Status: Ordered hydrochlorothiazide-olmesartan 12.5 mg-20 mg oral tablet 1 tablet, By Mouth, Daily, 0 Refills, Maintenance, 09/22/22 15:22:00 EDT, Partial fill upon patientrequest if the prescription is for a schedule II opioid drug. Start Date: 09/22/22 Status: Ordered ibuprofen 800 mg oral tablet 800 mg, 1, tablet, By Mouth, 3 times a day, PRN, # 30 tablet, Refills 0, Tot. Refills 0, Maintenance, for pain, 11/02/21 14:45:00 EDT, Route to Pharmacy Electronically, [facility]/pharmacy #0315, Partial fill upon patient request if the prescription is for a... Start Date: 11/02/21 Status: Ordered lidocaine 5% topical ointment 1 application, Topically, 3 times a day, PRN Pain , Moderate, # 50 Gm, 0 Refills, Maintenance, 10/04/22 18:35:00 EDT, Ointment, [facility]/pharmacy #0315, Partial fill upon patient request [...] 04/13/22 15:56:00 EST, Route to Pharmacy Electronically, [facility]/pharmacy #[id number], 155, cm, 02/08/22 15:09:00 EDT, Height Start Date: 04/13/22 Status: Ordered omeprazole 20 mg oral delayed release tablet 1 tablet = 20 mg, By Mouth, Daily, # 90 tablet, 1 Refills, Maintenance, 06/10/22 10:49:00 EST, [place] Tablet, [facility]/pharmacy #0315, Partial fill upon patient request if the prescription is for a schedule II opioid drug., 155, cm, 06/10/22 9:47:00 EST, Height Start Date: 06/10/22 Stop Date: 12/07/22 Status: Ordered SUMAtriptan 50 mg oral tablet 1 tablet = 50 mg, By Mouth, Once, PRN as needed for migraine headache, may repeat dose after 2 hours up to a maximum of 200 mg in 24 hours, # 9 tablet, 0 Refills, Soft Stop, 11/02/21 14:41:00 EDT, Tablet, [facility]/pharmacy #0315, Partial fill upon patient... Start [...] Member Role: PCP Address: Address: [address] [facility] [place] [address]- Care Team Related Persons Name: JONATHAN MUNROE Address: home [address] [place] [address] Name: NADIR VALENZUELA Address: home [address] [place] [address] Name: JONATHAN VALENZUELA Name: TANK BANKS Address: [place] [address]
--- OUTSIDE RECORDS SUMMARY | 2023-07-12 09:23 | XMS_ITS | Continuity of Care Document ---
Author Name Unknown Organization [facility] Adult Medicine Address [address] [place] [address]- Care Team Providers Care Proposal Engineer Name Role Phone Genaro ELLIS, Diana Primary Care Physician [facility]): 04/13/23 - 05/13/23 [facility] [address] [place] [id number] Allergies, Adverse Reactions, Alerts [...] 6 08/23/08 Given 1Result Comment: [05/13/2014] Fluvirax [id number] 2Admin Note: vis given 11/29/11 3Admin Note: [...] Gm, 3 Refills, Maintenance, 04/19/22 15:38:00 EST, [place], [facility], Partial fill upon patient request [...] tablet, 11 Refills, Maintenance, 10/18/22 15:46:00 EDT, [facility]/pharmacy #0315, 1 tablet By Mouth Daily,x90 days, 155, cm, 10/18/22 15:26:00 EDT, Height Start Date: 10/18/22 Stop Date: 10/02/25 Status: Ordered lidocaine 5% topical ointment 1 application, Topically, 3 times a day, PRN Pain , Moderate, # 50 Gm, 0 Refills, Maintenance, 10/04/22 18:35:00 EDT, Ointment, [facility]/pharmacy #0315, Partial fill upon patient request [...] 11/17/22 23:10:00 EDT, Route to Pharmacy Electronically, [facility] STORE [id number], 155, cm, 10/18/22 15:26:00 EDT, Height Start Date: 11/17/22 Status: Ordered omeprazole 20 mg oral delayed release tablet 1 tablet = 20 mg, By Mouth, Daily, # 90 tablet, 1 Refills, Maintenance, 06/10/22 10:49:00 EST, EC Tablet, [facility]/pharmacy #0315, Partial fill upon patient request [...] 05/14/23 13:07:00 EST, 04/16/23 13:07:00 EST, [place], [facility]/pharmacy #0315,Partial fill upon patient request if the prescripti... Start Date: 04/16/23 Stop Date: 05/14/23 Status: Ordered SUMAtriptan 50 mg oral tablet 1 tablet = 50 mg, By Mouth, Once, PRN as needed for migraine headache, may repeat dose after 2 hours up to a maximum of 200 mg in 24 hours, # 9 tablet, 0 Refills, Soft Stop, 11/02/21 14:41:00 EDT, Tablet, [facility]/pharmacy #0315, Partial fill upon patient... Start [...] Team Personnel Name: Diana Lam MD Position: [facility] Resident Member Role: PCP Address: Address: [address] [facility] [place] [address]- Care Team Related Persons Name: JONATHAN MUNROE Address: home [address] [place] [address] Name: NADIR VALENZUELA Address: home [address] [place] [address] Name: JONATHAN VALENZUELA Name: TANK BANKS Address: [place] [address]
--- OUTSIDE RECORDS SUMMARY | 2023-07-12 09:23 | XMS_ITS | Continuity of Care Document ---
Author Name Unknown Organization [facility] Address [address] [place] [address]- Care Team Providers Care Hydroblaster Name Role Phone Leilani ELLIS, Breezy Gerard Primary Care Physician Encounter [facility] Date(s): 06/11/22 - 07/11/[address] [address] Allergies, Adverse Reactions, Alerts Substance [...] 6 08/23/08 Given 1Result Comment: [05/13/2014] Fluvirax [id number] 2Admin Note: vis given 11/29/11 3Admin Note: [...] Gm, 3 Refills, Maintenance, 04/19/22 15:38:00 EST, [place], [facility], Partial fill upon patient request if the prescription is for a schedule II opioid drug., 1 sprays Nares, Both 2 times a day, 155,... Start Date: 04/19/22 Status: Ordered hydrochlorothiazide-olmesartan 12.5 mg-20 mg oral tablet 1 tablet, By Mouth, Daily, # 60 tablet, 1 Refills, Maintenance, 06/10/22 10:41:00 EST, Tablet, [facility]/pharmacy #0315, Partial fill upon patient request if [...] 11/02/21 14:45:00 EDT, Route to Pharmacy Electronically, [facility]/pharmacy #0315, Partial fill upon patient request if [...] 04/13/22 15:56:00 EST, Route to Pharmacy Electronically, [facility]/pharmacy #0315, 155, cm, 02/08/22 15:09:00 EDT, Height Start Date: 04/13/22 Status: Ordered omeprazole 20 mg oral delayed release tablet 1 tablet = 20 mg, By Mouth, Daily, # 90 tablet, 1 Refills, Maintenance, 06/10/22 10:49:00 EST, EC Tablet, [facility]/pharmacy #0315, Partial fill upon patient request if [...] Care team information Care Team Personnel Name: Leilani ELLIS, Breezy Gerard Position: [facility] Resident Member Role: PCP Address: Address: [address] [place] [address]- Care Team Related Persons Name: JONATHAN MUNROE Address: home [address] [place] [address] Name: NADIR VALENZUELA Address: home [address] [place] [address] Name: JONATHAN VALENZUELA Name: TANK BANKS Address: home [place], [place]
--- OUTSIDE RECORDS SUMMARY | 2023-07-12 09:23 | XMS_ITS | Continuity of Care Document ---
Author Name Unknown Organization [facility] Address [address] [place] [address]- Care Team Providers Care Ferryboat Captain Name Role Phone Leilani ELLIS, Breezy Gerard Primary Care Physician [facility] 09/22/22 - 10/22/22 [facility] [address] [place], [place] [address] Attending Physician: Brittanie Larson Admitting Physician: [...] 6 08/23/08 Given 1Result Comment: [05/13/2014] Fluvirax [id number] 2Admin Note: vis given 11/29/11 3Admin Note: [...] Gm, 3 Refills, Maintenance, 04/19/22 15:38:00 EST, [place], [facility]/pharmacy #0315, Partial fill upon patient request if [...] 11 Refills, Maintenance, 10/18/22 15:46:00 EDT, [facility]/pharmacy #0315, 1 tablet By Mouth Daily,x90 days, 155, cm, 10/18/22 15:26:00 EDT, Height Start Date: 10/18/22 Stop Date: 10/02/25 Status: Ordered ibuprofen 800 mg oral tablet 800 mg, 1, tablet, By Mouth, 3 times a day, PRN, # 30 tablet, Refills 0, Tot. Refills 0, Maintenance, for pain, 11/02/21 14:45:00 EDT, Route to Pharmacy Electronically, [facility]/pharmacy #0315, Partial fill upon patient request if the prescription is for a... Start Date: 11/02/21 Status: Ordered lidocaine 5% topical ointment 1 application, Topically, 3 times a day, PRN Pain , Moderate, # 50 Gm, 0 Refills, Maintenance, 10/04/22 18:35:00 EDT, Ointment, [facility]/pharmacy #0315, Partial fill upon patient request if [...] 15:56:00 EST, Route to Pharmacy Electronically, [facility]/pharmacy #0315, 155, cm, 02/08/22 15:09:00 EDT, Height Start Date: 04/13/22 Status: Ordered omeprazole 20 mg oral delayed release tablet 1 tablet = 20 mg, By Mouth, Daily, # 90 tablet, 1 Refills, Maintenance, 06/10/22 10:49:00 EST, EC Tablet, [facility]/pharmacy #0315, Partial fill upon patient request if [...] Soft Stop, 11/02/21 14:41:00 EDT, Tablet, [facility]/pharmacy #0315, Partial fill upon patient... Start Date: [...] S Resident Member Role: PCP Address: Address: [address] [place] [address] Care Team Related Persons Name: JONATHAN MUNROE Address: home [address] [place] [address] Name: NADIR VALENZUELA Address: home [address] [place] [address] Name: JONATHAN VALENZUELA Name: TANK BANKS Address: [place] [address]
--- OUTSIDE RECORDS SUMMARY | 2023-07-12 09:23 | XMS_ITS | Continuity of Care Document ---
Author Name Unknown Organization [facility] Adult Medicine Address [address] [place] [address]- Care Team Providers Care Craft Coordinator Name Role Phone Leilani ELLIS, Breezy Gerard Primary Care Physician [facility]): 07/09/21 - 08/08/21 [facility] [address] [place] [address]- Attending Physician: Admtr, Ar8 Allergies, Adverse Reactions, [...] 6 08/23/08 Given 1Result Comment: [05/13/2014] Fluvirax [id number] 2Admin Note: vis given 11/29/11 3Admin Note: [...] 01/19/21 17:26:00 EDT, Route to Pharmacy Electronically, [facility]/pharmacy #0315, Partial fill upon patient request if the prescript... Start Date: 01/19/21 Status: Ordered SUMAtriptan 25 mg oral tablet 1 tablet = 25 mg, By Mouth, Daily, PRN for migraine headache, may repeat dose after 2 hours up to amaximum of 2. Maldivian label, # 9 tablet, 0 Refills, Maintenance, 07/02/21 14:18:00 EST, Tablet, [facility]/pharmacy #0315, Partial fill upon patient request [...]
--- OUTSIDE RECORDS SUMMARY | 2023-07-12 09:23 | XMS_ITS | Continuity of Care Document ---
Author Name Unknown Organization [facility] Adult [facility] Address [address] [place] [address]- Care Team Providers Care Oven Heater Helper Name Role Phone Leilani ELLIS, Breezy Gerard Primary Care Physician [facility]): 08/17/22 - 09/16/22 [facility] [address] [place] [address] Attending Physician: Not on Staff, Attending [...] 6 08/23/08 Given 1Result Comment: [05/13/2014] Fluvirax [id number] 2Admin Note: vis given 11/29/11 3Admin Note: [...] Gm, 3 Refills, Maintenance, 04/19/22 15:38:00 EST, [place], [facility]/pharmacy #0315, Partial fill upon patient request if the prescription is for a schedule II opioid drug., 1 sprays Nares, Both 2 times a day, 155,... Start Date: 04/19/22 Status: Ordered hydrochlorothiazide-olmesartan 12.5 mg-20 mg oral tablet 1 tablet, By Mouth, Daily, # 60 tablet, 0 Refills, Maintenance, 09/06/22 8:35:00 EDT, [facility] STORE 30724, 60, TAKE 1 TABLET BY MOUTH EVERY DAY, 155, cm, 08/17/22 14:38:00 EDT, Height Start Date: 09/06/22 Status: Ordered ibuprofen 800 mg oral tablet 800 mg, 1, tablet, By Mouth, 3 times a day, PRN, # 30 tablet, Refills 0, Tot. Refills 0, Maintenance, for pain, 11/02/21 14:45:00 EDT, Route to Pharmacy Electronically, [facility] [...] 04/13/22 15:56:00 EST, Route to Pharmacy Electronically, [facility]/pharmacy #0315, 155, cm, 02/08/22 15:09:00 EDT, [...] 2 Refills, Maintenance, 04/23/22 9:19:00 EST, Aerosol, [facility]/pharmacy #0315, Partial fill upon [...] Resident Member Role: PCP Address: Address: [address] [facility] [place] [address]- Care Team Related Persons Name: JONATHAN MUNROE Address: home [address] [place] [address] Name: NADIR VALENZUELA Address: home [address] [place] [address] Name: JONATHAN VALENZUELA Name: TANK BANKS Address: [place] [address]
--- OUTSIDE RECORDS SUMMARY | 2023-07-12 09:23 | XMS_ITS | Continuity of Care Document ---
Author Name Unknown Organization [facility] Address [address] [place] [address], [address] [place] [address]- Care Team Providers Care Business Manager Name Role Phone Diana Lam MD Primary Care Physician [phone] [facility]): 01/03/23 - 02/02/23 [facility] [address] [place] [address], [address] [place], [place] [address] Attending Physician: AdmBrittanie wynn Admitting Physician: AdmtrBrittanie Referring Physician: Admtr, Ar8 [...] 6 08/23/08 Given 1Result Comment: [05/13/2014] Fluvirax [id number] 2Admin Note: vis given 11/29/11 3Admin Note: [...] Gm, 3 Refills, Maintenance, 04/19/22 15:38:00 EST, [place], [facility], Partial fill upon patient request [...] tablet, 11 Refills, Maintenance, 10/18/22 15:46:00 EDT, [facility]/pharmacy #0315, 1 tablet By Mouth Daily,x90 days, 155, cm, 10/18/22 15:26:00 EDT, Height Start Date: 10/18/22 Stop Date: 10/02/25 Status: Ordered lidocaine 5% topical ointment 1 application, Topically, 3 times a day, PRN Pain , Moderate, # 50 Gm, 0 Refills, Maintenance, 10/04/22 18:35:00 EDT, Ointment, [facility]/pharmacy #0315, Partial fill upon [...] 11/17/22 23:10:00 EDT, Route to Pharmacy Electronically, [facility] STORE 7[facility]87, 155, cm, 10/18/22 15:26:00 EDT, Height Start Date: 11/17/22 Status: Ordered omeprazole 20 mg oral delayed release tablet 1 tablet = 20 mg, By Mouth, Daily, # 90 tablet, 1 Refills, Maintenance, 06/10/22 10:49:00 EST, EC Tablet, [facility]/pharmacy #0315, Partial fill upon [...] Refills, Soft Stop, 11/02/21 14:41:00 EDT, Tablet, [facility]/pharmacy #0315, Partial fill upon patient... Start Date: 11/02/21 Status: Ordered Ventolin HFA 108 mcg/inh inhalation aerosol with adapter 1 puffs, Inhalation, 4 times a day, PRN for wheezing, # 8 Gm, 2 Refills, Maintenance, 04/23/22 9:19:00 EST, Aerosol, [facility]/pharmacy #0315, Partial fill upon [...] Team Personnel Name: Diana Lam MD Position: [facility] Resident Member Role: PCP Address: Address: [address] [place] [address]- Care Team Related Persons Name: JONATHAN MUNROE Address: home [address] [place] [address] Name: NADIR VALENZUELA Address: home [address] [place] [address] Name: JONATHAN VALENZUELA Name: TANK BANKS Address: [place] [address]
--- OUTSIDE RECORDS SUMMARY | 2023-07-12 09:23 | XMS_ITS | Continuity of Care Document ---
Author Name Unknown Organization [facility] Address [address] [place] [address]- Care Team Providers Care Polysomnograph Tech Name Role Phone Leilani ELLIS, Breezy Gerard Primary Care Physician [facility]): [facility] - 09/10/22 [facility] [address] [place] [id number] Attending Physician: Nayan TOLEDO, Raven Mancera Admitting Physician: Nayan TOLEDO, Raven Mancera Allergies, Adverse [...] 6 08/23/08 Given 1Result Comment: [05/13/2014] Fluvirax [id number] 2Admin Note: vis given 11/29/11 3Admin Note: [...] 1 Refills, Maintenance, 02/08/22 16:01:00 EDT, Tablet, [facility]/pharmacy #[id number], Partial fill upon patient request if the prescription is for a schedule II opioid drug., 2 tablet By Mouth Peace... Start Date: 02/08/22 Status: Ordered Flonase 50 mcg/inh nasal spray 1 sprays, Nares, Both, 2 times a day, # 16 Gm, 3 Refills, Maintenance, 04/19/22 15:38:00 EST, [place], [facility]/pharmacy #[id number], Partial fill upon patient request if the prescription is for a schedule II opioid drug., 1 sprays Nares, Both 2 times a day, 155,... Start Date: 04/19/22 Status: Ordered hydrochlorothiazide-olmesartan 12.5 mg-20 mg oral tablet 1 tablet, By Mouth, Daily, # 60 tablet, 0 Refills, Maintenance, 09/06/22 8:35:00 EDT, [facility] STORE 00390, 60, TAKE 1 TABLET BY MOUTH EVERY DAY, 155, cm, 08/17/22 14:38:00 EDT, Height Start Date: 09/06/22 Status: Ordered ibuprofen 800 mg oral tablet 800 mg, 1, tablet, By Mouth, 3 times a day, PRN, # 30 tablet, Refills 0, Tot. Refills 0, Maintenance, for pain, 11/02/21 14:45:00 EDT, Route to Pharmacy Electronically, [facility]/pharmacy #0315, Partial fill upon patient [...] 15:56:00 EST, Route to Pharmacy Electronically, [facility]/pharmacy #[id number], 155, cm, 02/08/22 15:09:00 EDT, Height Start Date: 04/13/22 Status: Ordered omeprazole 20 mg oral delayed release tablet 1 tablet = 20 mg, By Mouth, Daily, # 90 tablet, 1 Refills, Maintenance, 06/10/22 10:49:00 EST, [place] Tablet, [facility]/pharmacy #0315, Partial fill upon patient [...] Role: PCP Address: Address: [address] [facility] [place] [address]- Care Team Related Persons Name: JONATHAN MUNROE Address: home [address] [place] [address] Name: NADIR VALENZUELA Address: home [address] [place] [address] Name: JONATHAN VALENZUELA Name: TANK BANKS Address: [place] [address]
--- OUTSIDE RECORDS SUMMARY | 2023-07-12 09:24 | XMS_ITS | Continuity of Care Document ---
Author Name Unknown Organization [facility] Address [address] [place] [address]- Care Team Providers Care Game Engineer Name Role Phone Leilani ELLIS, Breezy Gerard Primary Care Physician [place] [facility] [place] 01/19/21 - 02/19/21 [facility] [address] [place] [id number] Attending Physician: Not on Staff, Attending MD [...] 6 08/23/08 Given 1Result Comment: [05/13/2014] Fluvirax [id number] 2Admin Note: vis given 11/29/11 3Admin Note: VIS GIVEN-DATE12/21/07 4Admin Note: VIS given 06/22/11 5Admin Note: VIS 2011 GIVEN 6Admin Note: vis given Medications naproxen 375 mg oral tablet 375 mg, 1, tablet, By Mouth, 2 times a day, for pain. take with food., # 30 tablet, Refills 0, Tot.Refills 0, Maintenance, 01/19/21 17:26:00 EDT, Route to Pharmacy Electronically, [facility]/pharmacy #[id number], Partial fill upon patient request if the [...]
--- OUTSIDE RECORDS SUMMARY | 2023-07-12 09:24 | XMS_ITS | Continuity of Care Document ---
Author Name Unknown Organization [facility] Address Unknown Care Team Providers Care Cloth Shrinking Machine Operator Name Role Phone Leilani ELLIS, Breezy Gerard Primary Care Physician Encounter [facility] Date(s): 02/10/21 - 03/12/21 [facility] Allergies, Adverse Reactions, Alerts [...] 6 08/23/08 Given 1Result Comment: [05/13/2014] Fluvirax [id number] 2Admin Note: vis given 11/29/11 3Admin Note: VIS GIVEN-DATE12/21/07 4Admin Note: VIS given 06/22/11 5Admin Note: VIS 2011 GIVEN 6Admin Note: vis given Medications naproxen 375 mg oral tablet 375 mg, 1, tablet, By Mouth, 2 times a day, for pain. take with food., # 30 tablet, Refills 0, Tot.Refills 0, Maintenance, 01/19/21 17:26:00 EDT, Route to Pharmacy Electronically, [facility]/pharmacy #[id number], Partial fill upon patient request if the [...]
--- OUTSIDE RECORDS SUMMARY | 2023-07-12 09:24 | XMS_ITS | Continuity of Care Document ---
Author Name Unknown Organization [facility] Address [address] [place] [address]- Care Team Providers Care Ham Boner Name Role Phone Leilani ELLIS, Breezy Gerard Primary Care Physician [facility] 07/06/21 - 08/05/21 [facility] [address] [place] [id number] Allergies, Adverse Reactions, Alerts Substance Reaction [...] 6 08/23/08 Given 1Result Comment: [05/13/2014] Fluvirax [id number] 2Admin Note: vis given 11/29/11 3Admin Note: VIS GIVEN-DATE12/21/07 4Admin Note: VIS given 06/22/11 5Admin Note: VIS 2011 GIVEN 6Admin Note: vis given Medications diclofenac 1% topical gel 1 application, Topically, 4 times a day, # 100 Gm, 0 Refills, Maintenance, 06/19/21 14:59:00 EST, [place], [id number], Partial fill upon patient request if the prescription is for a schedule II opioid drug., 155, cm, 06/19/21 14:39:00 EST, Height Start Date: 06/19/21 Status: Ordered naproxen 375 mg oral tablet 375 mg, 1, tablet, By Mouth, 2 times a day, for pain. take with food., # 30 tablet, Refills 0, Tot.Refills 0, Maintenance, 01/19/21 17:26:00 EDT, Route to Pharmacy Electronically, [facility]/pharmacy #0315, Partial fill upon patient request if the prescript... Start Date: 01/19/21 Status: Ordered SUMAtriptan 25 mg oral tablet 1 tablet = 25 mg, By Mouth, Daily, PRN for migraine headache, may repeat dose after 2 hours up to amaximum of 2. Mongolian label, # 9 tablet, 0 Refills, Maintenance, 07/02/21 14:18:00 EST, Tablet, [facility]/pharmacy #0315, Partial fill upon patient [...]
--- OUTSIDE RECORDS SUMMARY | 2023-07-12 09:24 | XMS_ITS | Continuity of Care Document ---
Author Name Unknown Organization [facility] Address [address] [place] [address]- Care Team Providers Care Displayer Name Role Phone Genaro ELLIS, Diana Primary Care Physician [facility]): 12/07/22 - 01/06/23 [facility] [address] [place] [id number] Allergies, Adverse Reactions, Alerts Substance [...] 6 08/23/08 Given 1Result Comment: [05/13/2014] Fluvirax [id number] 2Admin Note: vis given 11/29/11 3Admin Note: [...] Gm, 3 Refills, Maintenance, 04/19/22 15:38:00 EST, [place], [facility]/pharmacy #0315, Partial fill upon patient request [...] tablet, 11 Refills, Maintenance, 10/18/22 15:46:00 EDT, [facility]/pharmacy #0315, 1 tablet By Mouth Daily,x90 days, 155, cm, 10/18/22 15:26:00 EDT, Height Start Date: 10/18/22 Stop Date: 10/02/25 Status: Ordered lidocaine 5% topical ointment 1 application, Topically, 3 times a day, PRN Pain , Moderate, # 50 Gm, 0 Refills, Maintenance, 10/04/22 18:35:00 EDT, Ointment, [facility]/pharmacy #0315, Partial fill upon patient request [...] 11/17/22 23:10:00 EDT, Route to Pharmacy Electronically, [facility] STORE 44492, 155, cm, 10/18/22 15:26:00 EDT, Height Start Date: 11/17/22 Status: Ordered omeprazole 20 mg oral delayed release tablet 1 tablet = 20 mg, By Mouth, Daily, # 90 tablet, 1 Refills, Maintenance, 06/10/22 10:49:00 EST, EC Tablet, [facility]/pharmacy #0315, Partial fill upon patient request [...] Refills, Soft Stop, 11/02/21 14:41:00 EDT, Tablet, [facility]/pharmacy #0315, Partial fill upon patient... Start Date: [...] Team Personnel Name: Diana Lam MD Position: [facility] Resident Member Role: PCP Address: Address: [address] [place] [address] [place] [address]- Care Team Related Persons Name: JONATHAN MUNROE Address: home [address] [place] [address] Name: NADIR VALENZUELA Address: home [address] [place] [address] Name: JONATHAN VALENZUELA Name: TANK BANKS Address: [place] [address]
--- OUTSIDE RECORDS SUMMARY | 2023-07-12 09:24 | XMS_ITS | Continuity of Care Document ---
Author Name Unknown Organization [facility] Address [address] [place] [address]- Care Team Providers Care Steel Estimator Name Role Phone Leilani ELLIS, Breezy Gerard Primary Care Physician [facility]s): 06/02/21 - 07/02/21 [facility] [address] [place] [id number] Allergies, Adverse Reactions, Alerts Substance Reaction [...] 6 08/23/08 Given 1Result Comment: [05/13/2014] Fluvirax [id number] 2Admin Note: vis given 11/29/11 3Admin Note: [...] 2 hours up to amaximum of 2. Papua [place] Guinean label, # 9 tablet, 0 Refills, Maintenance, [...]
--- OUTSIDE RECORDS SUMMARY | 2023-07-12 09:24 | XMS_ITS | Continuity of Care Document ---
Author Name Unknown Organization [facility] Address [address] [place] [address] [address] [place] [address]- Care Team Providers Care Rn Neurosurgical Name Role Phone Leilani ELLIS, Breezy Gerard Primary Care Physician [facility] Date(s): 06/11/22 - 07/11/22 [facility] [address] [place], [place] [address] Allergies, Adverse Reactions, Alerts Substance [...] 6 08/23/08 Given 1Result Comment: [05/13/2014] Fluvirax [id number] 2Admin Note: vis given 11/29/11 3Admin Note: [...] Gm, 3 Refills, Maintenance, 04/19/22 15:38:00 EST, [place], [facility], Partial fill upon patient request if the prescription is for a schedule II opioid drug., 1 sprays Nares, Both 2 times a day, 155,... Start Date: 04/19/22 Status: Ordered hydrochlorothiazide-olmesartan 12.5 mg-20 mg oral tablet 1 tablet, By Mouth, Daily, # 60 tablet, 1 Refills, Maintenance, 06/10/22 10:41:00 EST, Tablet, [facility]/pharmacy #0315, [...] 04/13/22 15:56:00 EST, Route to Pharmacy Electronically, [facility]/pharmacy #0315, 155, cm, 02/08/22 15:09:00 [...] Team Personnel Name: Breezy Duke MD Position: [facility] Resident Member Role: PCP Address: Address: [address] [place] [address]- Care Team Related Persons Name: JONATHAN MUNROE Address: home [address] [place] [address] Name: NADIR VALENZUELA Address: home [address] [place] [address] Name: JONATHAN VALENZUELA Name: TANK BANKS Address: home [place], [place]
--- OUTSIDE RECORDS SUMMARY | 2023-07-12 09:24 | XMS_ITS | Continuity of Care Document ---
Author Name Unknown Organization [facility] Address [address] [place] [address]- Care Team Providers Care Agents' Records Clerk Name Role Phone Leilani ELLIS, Breezy Gerard Primary Care Physician [facility]s): 05/26/22 - 06/25/22 [facility] [address] [place] [id number] Allergies, Adverse Reactions, Alerts Substance [...] 6 08/23/08 Given 1Result Comment: [05/13/2014] Fluvirax [id number] 2Admin Note: vis given 11/29/11 3Admin Note: [...] Gm, 3 Refills, Maintenance, 04/19/22 15:38:00 EST, [place], [facility], Partial fill upon patient request if the prescription is for a schedule II opioid drug., 1 sprays Nares, Both 2 times a day, 155,... Start Date: 04/19/22 Status: Ordered hydrochlorothiazide-olmesartan 12.5 mg-20 mg oral tablet 1 tablet, By Mouth, Daily, # 60 tablet, 1 Refills, Maintenance, 06/10/22 10:41:00 EST, Tablet, [facility]/pharmacy #0315, Partial [...] Refills, Maintenance, 06/10/22 10:49:00 EST, EC Tablet, [facility]/pharmacy #0315, Partial fill [...] Team Personnel Name: Breezy Duke MD Position: [facility] Resident Member Role: PCP Address: Address: [address] [place] [address]- Care Team Related Persons Name: JONATHAN MUNROE Address: home [address] [place] [address] Name: NADIR VALENZUELA Address: home [address] [place] [address] Name: JONATHAN VALENZUELA Name: TANK BANKS Address: [place]
--- OUTSIDE RECORDS SUMMARY | 2023-07-12 09:24 | XMS_ITS | Continuity of Care Document ---
Author Name Unknown Organization [facility] Address [address] [place] [address]- Care Team Providers Care Household Worker Name Role Phone Leilani ELLIS, Breezy Gerard Primary Care Physician [facility] 05/15/21 - 06/14/21 [facility] [address] [place], [place] [address] Allergies, Adverse Reactions, Alerts Substance [...] 6 08/23/08 Given 1Result Comment: [05/13/2014] Fluvirax [id number] 2Admin Note: vis given 11/29/11 3Admin Note: VIS GIVEN-DATE12/21/07 4Admin Note: VIS given 06/22/11 5Admin Note: VIS 2011 GIVEN 6Admin Note: vis given Medications naproxen 375 mg oral tablet 375 mg, 1, tablet, By Mouth, 2 times a day, for pain. take with food., # 30 tablet, Refills 0, Tot.Refills 0, Maintenance, 01/19/21 17:26:00 EDT, Route to Pharmacy Electronically, [facility]/pharmacy #0314, Partial fill upon patient request if the [...]
--- OUTSIDE RECORDS SUMMARY | 2023-07-12 09:24 | XMS_ITS | Continuity of Care Document ---
Author Name Unknown Organization [facility] Address [address] [place] [address] jolanta, [address] [place] [address]- Care Team Providers Care Filling Station Equipment Mechanic Name Role Phone Genaro ELLIS, Diana Primary Care Physician [facility]s): 12/10/22 - 01/09/23 [facility] [address] [place] [address] Drive, [address] [place], [place] [address] Allergies, Adverse Reactions, Alerts Substance [...] 6 08/23/08 Given 1Result Comment: [05/13/2014] Fluvirax [id number] 2Admin Note: vis given 11/29/11 3Admin Note: [...] Gm, 3 Refills, Maintenance, 04/19/22 15:38:00 EST, [place], [facility]/pharmacy #0315, Partial fill [...] tablet, 11 Refills, Maintenance, 10/18/22 15:46:00 EDT, [facility]/pharmacy #0315, 1 tablet By Mouth Daily,x90 days, 155, cm, 10/18/22 15:26:00 EDT, Height Start Date: 10/18/22 Stop Date: 10/02/25 Status: Ordered lidocaine 5% topical ointment 1 application, Topically, 3 times a day, PRN Pain , Moderate, # 50 Gm, 0 Refills, Maintenance, 10/04/22 18:35:00 EDT, Ointment, [facility]/pharmacy #0315, Partial fill [...] 11/17/22 23:10:00 EDT, Route to Pharmacy Electronically, [facility] STORE 35175, 155, cm, 10/18/22 15:26:00 EDT, Height Start Date: 11/17/22 Status: Ordered omeprazole 20 mg oral delayed release tablet 1 tablet = 20 mg, By Mouth, Daily, # 90 tablet, 1 Refills, Maintenance, 06/10/22 10:49:00 EST, [place] Tablet, [facility]/pharmacy #0315, Partial fill [...] Refills, Soft Stop, 11/02/21 14:41:00 EDT, Tablet, [facility]/pharmacy #0315, Partial fill upon patient... Start Date: 11/02/21 Status: Ordered Ventolin HFA 108 mcg/inh inhalation aerosol with adapter 1 puffs, Inhalation, 4 times a day, PRN for wheezing, # 8 Gm, 2 Refills, Maintenance, 11/25/22 9:19:00 EST, [place], [facility], Partial fill [...] Team Personnel Name: Diana Lam MD Position: [facility] Resident Member Role: PCP Address: Address: [address] [facility] [place] [address]- Care Team Related Persons Name: JONATHAN MUNROE Address: home [address] [place] [address] Name: NADIR VALENZUELA Address: home [address] [place] [address] Name: JONATHAN VALENZUELA Name: TANK BANKS Address: [place] [address]
--- OUTSIDE RECORDS SUMMARY | 2023-07-12 09:24 | XMS_ITS | Continuity of Care Document ---
Author Name Unknown Organization [facility] Address [address] [place] [address]- Care Team Providers Care Buyers' Agent Name Role Phone Leilani ELLIS, Breezy Gerard Primary Care Physician [facility]): 08/31/22 - 09/30/22 [facility] [address] [place] [id number] Allergies, Adverse Reactions, Alerts [...] 6 08/23/08 Given 1Result Comment: [05/13/2014] Fluvirax [id number] 2Admin Note: vis given 11/29/11 3Admin Note: [...] Gm, 3 Refills, Maintenance, 04/19/22 15:38:00 EST, [place], [facility], Partial fill upon patient request if the prescription is for a schedule II opioid drug., 1 sprays Nares, Both 2 times a day, 155,... Start Date: 04/19/22 Status: Ordered hydrochlorothiazide-olmesartan 12.5 mg-20 mg oral tablet 1 tablet, By Mouth, Daily, # 60 tablet, 0 Refills, Maintenance, 09/06/22 8:35:00 EDT, [facility] STORE 85382, 60, TAKE 1 TABLET BY MOUTH EVERY [...] 11/02/21 14:45:00 EDT, Route to Pharmacy Electronically, [facility]/pharmacy #0315, Partial fill upon patient request [...] 04/13/22 15:56:00 EST, Route to Pharmacy Electronically, [facility]/pharmacy #0315, 155, cm, 02/08/22 15:09:00 EDT, [...] Personnel Name: Leilani ELLIS, Breezy Gerard Position: [facility] Resident Member Role: PCP Address: Address: [address] [place] [address]- Care Team Related Persons Name: JONATHAN MUNROE Address: home [address] [place] [address] Name: NADIR VALENZUELA Address: home [address] [place] [address] Name: JONATHAN VALENZUELA Name: TANK BANKS Address: [place] [address]
--- OUTSIDE RECORDS SUMMARY | 2023-07-12 09:24 | XMS_ITS | Continuity of Care Document ---
Author Name Unknown Organization [facility] Address [address] [place] [address]- Care Team Providers Care Set Up Mechanic Coil Winding Machines Name Role Phone Breezy Duke MD Primary Care Physician Encounter [facility] Date(s): 09/10/21 - 09/17/21 [facility] [address] [place] [address]- Attending Physician: Janelle Cooper MD Referring Physician: Breezy Duke MD Allergies, [...] 6 08/23/08 Given 1Result Comment: [05/13/2014] Fluvirax [id number] 2Admin Note: vis given 11/29/11 3Admin Note: [...] 01/19/21 17:26:00 EDT, Route to Pharmacy Electronically, [facility]/pharmacy #0315, Partial fill upon patient request if the prescript... Start Date: 01/19/21 Status: Ordered ProAir HFA 90 mcg/inh inhalation aerosol with adapter 2, puffs, Inhalation, Every 4 hours, PRN, , cough, or SOB, # 1 each, Refills 0, Tot. Refills 0, Maintenance, 09/10/21 17:00:00 EDT, Aerosol, Route to Pharmacy Electronically, [id number], [facility]/pharmacy #0315, 155, cm, 09/10/21... Start Date: 09/10/21 Stop Date: 10/10/21 Status: Ordered SUMAtriptan 25 mg oral tablet 1 tablet = 25 mg, By Mouth, Daily, PRN for migraine headache, may repeat dose after 2 hours up to amaximum of 2. Omani label, # 9 tablet, 0 Refills, Maintenance, 07/02/21 14:18:00 EST, Tablet, [facility]/pharmacy #0315, Partial [...] oldest [Reference Range]: 1 Height 155 cm (09/10/21 4:36 PM) Oxygen Saturation [94-100 %] 97 % (09/10/21 4:36 PM) Pulse Rate [55-90 bpm] 80 bpm (09/10/21 4:36 PM) Blood Pressure [90-138/55-84 mm Hg] 158/ 94mm Hg *H* (09/10/21 4:36 PM) Respiratory Rate [16-30 br/min] 24 br/mi n (09/10/21 4:36 PM) Temperature [96.8-100.4 DegF] 98.7 DegF (09/10/21 4:36 PM) Mode of Delivery (Oxygen) Room air (09/10/21 4:36 PM) Blood pressure sites Arm, left (09/10/21 4:36 PM) Temperature Route Temporal (09/10/21 4:36 PM) Social History Social History Type Response Smoking Status Never smoker entered on: 09/05/14 Sex
--- OUTSIDE RECORDS SUMMARY | 2023-07-12 09:24 | XMS_ITS | Continuity of Care Document ---
Author Name Unknown Organization [facility] Address [address] [place] [address]- Care Team Providers Care Toaster Operator Name Role Phone Diana Lam MD Primary Care Physician [place] [facility] [place]22 - 12/19/22 [facility] [address] [place] [id number] Allergies, Adverse Reactions, Alerts Substance [...] 6 08/23/08 Given 1Result Comment: [05/13/2014] Fluvirax [id number] 2Admin Note: vis given 11/29/11 3Admin Note: [...] Gm, 3 Refills, Maintenance, 04/19/22 15:38:00 EST, [place], [facility]/pharmacy #0315, Partial fill [...] Pharmacy Electronically, [facility] STORE 13497, 155, cm, 10/18/22 15:26:00 EDT, Height Start [...] HOSPITAL Resident Member Role: PCP Address: Address: [address] [place] [address] Adult [place], [place] [address] Care Team Related Persons Name: JONATHAN MUNROE Address: home [address] [place] [address] Name: NADIR VALENZUELA Address: home [address] [place] [address] Name: JONATHAN VALENZUELA Name: TANK BANKS Address: [place] [address]
--- OUTSIDE RECORDS SUMMARY | 2023-07-12 09:24 | XMS_ITS | Continuity of Care Document ---
Author Name Unknown Organization [facility] Address [address] [place] [address]- Care Team Providers Care Toy Trains And Accessories Salesperson Name Role Phone Leilani ELLIS, Breezy Gerard Primary Care Physician [facility] Date[facility]s): 11/26[facility]21 - 12/26/21 [facility] Medicine [address] [place] [id number] Attending Physician: Admtr, Ar8 Allergies, Adverse Reactions, [...] 6 08/23/08 Given 1Result Comment: [05/13/2014] Fluvirax [id number] 2Admin Note: vis given 11/29/11 3Admin Note: [...] 0 Refills, Maintenance, 11/02/21 14:44:00 EDT, Gel, [facility]/pharmacy #0315, Partial fill upon patient request [...] 12/14/21 14:42:00 EDT, Route to Pharmacy Electronically, [facility]/pharmacy #0315, Partial fill upon patient request [...] Soft Stop, 11/02/21 14:41:00 EDT, Tablet, [facility]/pharmacy #0231, Partial fill upon patient... Start Date: 11/02/21 [...]
--- OUTSIDE RECORDS SUMMARY | 2023-07-12 09:24 | XMS_ITS | Continuity of Care Document ---
Author Name Unknown Organization [facility] Address Unknown Care Team Providers Care Core Baker Name Role Phone Leilani ELLIS, Breezy Gerard Primary Care Physician En[place] [facility] Date(s): 02/05/21 - 03/07/21 [facility] Allergies, Adverse Reactions, Alerts [...] 6 08/23/08 Given 1Result Comment: [05/13/2014] Fluvirax [id number] 2Admin Note: vis given 11/29/11 3Admin Note: VIS GIVEN-DATE12/21/07 4Admin Note: VIS given 06/22/11 5Admin Note: VIS 2011 GIVEN 6Admin Note: vis given Medications naproxen 375 mg oral tablet 375 mg, 1, tablet, By Mouth, 2 times a day, for pain. take with food., # 30 tablet, Refills 0, Tot.Refills 0, Maintenance, 01/19/21 17:26:00 EDT, Route to Pharmacy Electronically, [facility]/pharmacy #1026, Partial fill upon patient request if the [...]
--- OUTSIDE RECORDS SUMMARY | 2023-07-12 09:24 | XMS_ITS | Continuity of Care Document ---
Author Name Unknown Organization [facility] Address [address] [place] [address]- Care Team Providers Care Automobile Spring Repairer Name Role Phone Leilani ELLIS, Breezy Gerard Primary Care Physician [facility] Date[facility]s): 08/17/22 - 09/16/22 [facility] [address] [place] [address] Attending Physician: Nayan TOLEDO, Raven Mancera [...] 6 08/23/08 Given 1Result Comment: [05/13/2014] Fluvirax [id number] 2Admin Note: vis given 11/29/11 3Admin Note: [...] Maintenance, 02/08/22 16:01:00 EDT, Tablet, [facility]/pharmacy #[id number], Partial fill upon patient request if the prescription is for a schedule II opioid drug., 2 tablet By Mouth Peace... Start Date: 02/08/22 Status: Ordered Flonase 50 mcg/inh nasal spray 1 sprays, Nares, Both, 2 times a day, # 16 Gm, 3 Refills, Maintenance, 04/19/22 15:38:00 EST, [place], [facility]/pharmacy #[id number], Partial fill upon patient request if the prescription is for a schedule II opioid drug., 1 sprays Nares, Both 2 times a day, 155,... Start Date: 04/19/22 Status: Ordered hydrochlorothiazide-olmesartan 12.5 mg-20 mg oral tablet 1 tablet, By Mouth, Daily, # 60 tablet, 0 Refills, Maintenance, 09/06/22 8:35:00 EDT, [facility] ST[id number], 60, TAKE 1 TABLET BY MOUTH EVERY DAY, 155, cm, 08/17/22 14:38:00 EDT, Height Start Date: 09/06/22 Status: Ordered ibuprofen 800 mg oral tablet 800 mg, 1, tablet, By Mouth, 3 times a day, PRN, # 30 tablet, Refills 0, Tot. Refills 0, Maintenance, for pain, 11/02/21 14:45:00 EDT, Route to Pharmacy Electronically, [facility]/pharmacy #[id number], Partial fill upon patient request if [...] EST, Route to Pharmacy Electronically, [facility]/pharmacy #[id number], 155, cm, 02/08/22 15:09:00 EDT, Height Start Date: 04/13/22 Status: Ordered omeprazole 20 mg oral delayed release tablet 1 tablet = 20 mg, By Mouth, Daily, # 90 tablet, 1 Refills, Maintenance, 06/10/22 10:49:00 EST, EC Tablet, [facility]/pharmacy #0315, Partial fill upon patient request if [...] Role: PCP Address: Address: [address] [facility] [address]- Care Team Related Persons Name: JONATHAN MUNROE Address: home [address] [place] [address] Name: NADIR VALENZUELA Address: home [address] [place] [address] Name: JONATHAN VALENZUELA Name: TANK BANKS Address: [place] [address]
--- OUTSIDE RECORDS SUMMARY | 2023-07-12 09:24 | XMS_ITS | Continuity of Care Document ---
Author Name Unknown Organization [facility] Address Unknown Care Team Providers Care Surgical Pathologist Name Role Phone Leilani ELLIS, Breezy Gerard Primary Care Physician Encounter [facility] Date(s): 02/11/21 - 03/13/21 [facility] Attending Physician: Brittanie Larson Admitting Physician: Brittanie Larson Referring Physician: Brittanie Larson Allergies, Adverse Reactions, Alerts Substance Reaction Severity [...] 6 08/23/08 Given 1Result Comment: [05/13/2014] Fluvirax [id number] 2Admin Note: vis given 11/29/11 3Admin Note: VIS GIVEN-DATE12/21/07 4Admin Note: VIS given 06/22/11 5Admin Note: VIS 2011 GIVEN 6Admin Note: vis given Medications naproxen 375 mg oral tablet 375 mg, 1, tablet, By Mouth, 2 times a day, for pain. take with food., # 30 tablet, Refills 0, Tot.Refills 0, Maintenance, 01/19/21 17:26:00 EDT, Route to Pharmacy Electronically, [facility]/pharmacy #[id number], Partial fill upon patient request if the [...]
--- OUTSIDE RECORDS SUMMARY | 2023-07-12 09:24 | XMS_ITS | Continuity of Care Document ---
Author Name Unknown Organization [facility] Address [address] [place] [address]- Care Team Providers Care Stock Supervisor Name Role Phone Breezy Duke MD Primary Care Physician [facility] Date(s): 12/24/20 - 01/23/21 [facility] [address] [place] [address]- Allergies, Adverse Reactions, Alerts Substance Reaction Severity [...] 6 08/23/08 Given 1Result Comment: [05/13/2014] Fluvirax [id number] 2Admin Note: vis given 11/29/11 3Admin Note: VIS GIVEN-DATE12/21/07 4Admin Note: VIS given 06/22/11 5Admin Note: VIS 2011 GIVEN 6Admin Note: vis given Medications naproxen 375 mg oral tablet 375 mg, 1, tablet, By Mouth, 2 times a day, for pain. take with food., # 30 tablet, Refills 0, Tot.Refills 0, Maintenance, 01/19/21 17:26:00 EDT, Route to Pharmacy Electronically, [facility]/pharmacy #[id number], Partial fill upon patient request if the [...]
--- OUTSIDE RECORDS SUMMARY | 2023-07-12 09:24 | XMS_ITS | Continuity of Care Document ---
Author Name Unknown Organization [facility] Address [address] [place] [address]- Care Team Providers Care Manager Of Tax Name Role Phone Leilani ELLIS, Breezy Gerard Primary Care Physician [facility] Date[facility]s): 09/10/21 - 10/10/21 [facility] [address], [place] [address] Attending Physician: Brittanie Larson Admitting Physician: [...] 6 08/23/08 Given 1Result Comment: [05/13/2014] Fluvirax [id number] 2Admin Note: vis given 11/29/11 3Admin Note: VIS GIVEN-DATE12/21/07 4Admin Note: VIS given 06/22/11 5Admin Note: VIS 2011 GIVEN 6Admin Note: vis given Medications diclofenac 1% topical gel 1 application, Topically, 4 times a day, # 100 Gm, 0 Refills, Maintenance, 06/19/21 14:59:00 EST, [place], [facility]/pharmacy #[id number], Partial fill upon [...] 01/19/21 17:26:00 EDT, Route to Pharmacy Electronically, [facility]/pharmacy #[id number], Partial fill upon patient request if the prescript... Start Date: 01/19/21 Status: Ordered ProAir HFA 90 mcg/inh inhalation aerosol with adapter 2, puffs, Inhalation, Every 4 hours, PRN, , cough, or SOB, # 1 each, Refills 0, Tot. Refills 0, Maintenance, 09/10/21 17:00:00 EDT, Aerosol, Route to Pharmacy Electronically, [id number], [facility]/pharmacy #0315, 155, cm, 09/10/21... Start Date: 09/10/21 Stop Date: 10/10/21 Status: Ordered SUMAtriptan 25 mg oral tablet 1 tablet = 25 mg, By Mouth, Daily, PRN for migraine headache, may repeat dose after 2 hours up to amaximum of 2. Mongolian label, # 9 tablet, 0 Refills, Maintenance, 07/02/21 14:18:00 EST, Tablet, [facility]/pharmacy #0315, Partial fill upon [...]
--- OUTSIDE RECORDS SUMMARY | 2023-07-12 09:24 | XMS_ITS | Continuity of Care Document ---
Author Name Unknown Organization [facility] Address [address] [place] [address]- Care Team Providers Care Choral Teacher Name Role Phone Leilani ELLIS, Breezy Gerard Primary Care Physician Encounter [facility] Date(s): 06/12/22 - 09/04/22 [facility] [address] [place] [address]- Attending Physician: Christian Sotomayor MD Admitting Physician: [...] 6 08/23/08 Given 1Result Comment: [05/13/2014] Fluvirax [id number] 2Admin Note: vis given 11/29/11 3Admin Note: [...] Gm, 3 Refills, Maintenance, 04/19/22 15:38:00 EST, [place], [facility]/pharmacy #0315, Partial fill upon patient request if the prescription is for a schedule II opioid drug., 1 sprays Nares, Both 2 times a day, 155,... Start Date: 04/19/22 Status: Ordered hydrochlorothiazide-olmesartan 12.5 mg-20 mg oral tablet 1 tablet, By Mouth, Daily, # 60 tablet, 1 Refills, Maintenance, 06/10/22 10:41:00 EST, Tablet, [facility]/pharmacy #0315, [...] 11/02/21 14:45:00 EDT, [facility] Pharmacy Electronically, [facility] [...] 04/13/22 15:56:00 EST, Route to Pharmacy Electronically, [facility]/pharmacy #[id number], 155, cm, 02/08/22 15:09:00 EDT, Height Start Date: 04/13/22 Status: Ordered omeprazole 20 mg oral delayed release tablet 1 tablet = 20 mg, By Mouth, Daily, # 90 tablet, 1 Refills, Maintenance, 06/10/22 10:49:00 EST, EC Tablet, [facility]/pharmacy #0315, Partial [...] Refills, Soft Stop, 11/02/21 14:41:00 EDT, Tablet, [facility]/pharmacy #0315, Partial fill upon patient... Start Date: 11/02/21 Status: Ordered Ventolin HFA 108 mcg/inh inhalation aerosol with adapter 1 puffs, Inhalation, 4 times a day, PRN for wheezing, # 8 Gm, 2 Refills, Maintenance, 04/23/22 9:19:00 EST, Aerosol, [facility]/pharmacy #0315, Partial fill [...] Resident Member Role: PCP Address: Address: [address] [facility] [place], [place] [address] Care Team Related Persons Name: JONATHAN MUNROE Address: home [address] [place] [address] Name: NADIR VLAENZUELA Address: home [address] [place] [address] Name: JONATHAN VALENZUELA Name: TANK BANKS Address: [place] [address]
--- OUTSIDE RECORDS SUMMARY | 2023-07-12 09:25 | XMS_ITS | Continuity of Care Document ---
Author Name Unknown Organization [facility] Address [address] [place] [address]- Care Team Providers Care Television Engineer Name Role Phone Leilani ELLIS, Breezy Gerard Primary Care Physician Encounter [facility] Date(s): 04/23/22 - 05/23/22 [facility] [address] [place] [id number] Allergies, Adverse Reactions, Alerts Substance Reaction [...] 6 08/23/08 Given 1Result Comment: [05/13/2014] Fluvirax [id number] 2Admin Note: vis given 11/29/11 3Admin Note: [...] Gm, 3 Refills, Maintenance, 04/19/22 15:38:00 EST, [place], [facility], Partial fill upon patient request [...] 11/02/21 14:45:00 EDT, Route to Pharmacy Electronically, [facility]/pharmacy #0315, Partial fill upon patient request if the prescription is for a... Start Date: 11/02/21 Status: Ordered losartan 50 mg oral tablet 1 tablet = 50 mg, By Mouth, Daily, # 90 tablet, 1 Refills, Maintenance, 02/08/22 15:58:00 EDT, Tablet, [facility]/pharmacy #0315, Partial fill upon patient [...] 04/13/22 15:56:00 EST, Route to Pharmacy Electronically, [facility]/pharmacy #[id number], 155, cm, 02/08/22 15:09:00 EDT, Height Start Date: 04/13/22 Status: Ordered SUMAtriptan 50 mg oral tablet 1 tablet = 50 mg, By Mouth, Once, PRN as needed for migraine headache, may repeat dose after 2 hours up to a maximum of 200 mg in 24 hours, # 9 tablet, 0 Refills, Soft Stop, 11/02/21 14:41:00 EDT, Tablet, [facility]/pharmacy #0315, Partial fill upon patient... [...] Member Role: PCP Address: Address: [address] [place] [address]- Care Team Related Persons Name: JONATHAN MUNROE Address: home [address] [place] [address] Name: NADIR VALENZUELA Address: home [address] [place] [address] Name: JONATHAN VALENZUELA Name: TANK BANKS Address: home [place]KNOWN [facility] [place]
--- OUTSIDE RECORDS SUMMARY | 2023-07-12 09:25 | XMS_ITS | Continuity of Care Document ---
Author Name Unknown Organization [facility] Address [address] [place] [address]- Care Team Providers Care Machine Greaser Name Role Phone Genaro ELLIS, Diana Primary Care Physician [phone] [facility]counter [facility] Date(s): 02/09/23 - 03/11/[address] [address] Attending Physician: Brittanie Larson Admitting Physician: AdmtrBrittanie Referring Physician: Admtr, ArRadha Allergies, Adverse Reactions, Alerts Substance Reaction Severity [...] 6 08/23/08 Given 1Result Comment: [05/13/2014] Fluvirax [id number] 2Admin Note: vis given 11/29/11 3Admin Note: [...] Gm, 3 Refills, Maintenance, 04/19/22 15:38:00 EST, [place], [facility], Partial fill upon patient request [...] tablet, 11 Refills, Maintenance, 10/18/22 15:46:00 EDT, [facility]/pharmacy #0315, 1 tablet By Mouth Daily,x90 days, 155, cm, 10/18/22 15:26:00 EDT, Height Start Date: 10/18/22 Stop Date: 10/02/25 Status: Ordered lidocaine 5% topical ointment 1 application, Topically, 3 times a day, PRN Pain , Moderate, # 50 Gm, 0 Refills, Maintenance, 10/04/22 18:35:00 EDT, Ointment, [facility]/pharmacy #0315, Partial fill upon patient [...] 11/17/22 23:10:00 EDT, Route to Pharmacy Electronically, [facility] STORE [id number], 155, cm, 10/18/22 15:26:00 EDT, Height Start Date: 11/17/22 Status: Ordered omeprazole 20 mg oral delayed release tablet 1 tablet = 20 mg, By Mouth, Daily, # 90 tablet, 1 Refills, Maintenance, 06/10/22 10:49:00 EST, EC Tablet, [facility]/pharmacy #0315, Partial fill upon patient [...] Refills, Soft Stop, 11/02/21 14:41:00 EDT, Tablet, [facility]/pharmacy #0315, Partial fill upon patient... Start Date: 11/02/21 Status: Ordered Ventolin HFA 108 mcg/inh inhalation aerosol with adapter 1 puffs, Inhalation, 4 times a day, PRN for wheezing, # 8 Gm, 2 Refills, Maintenance, 04/23/22 9:19:00 EST, Aerosol, [facility]/pharmacy #0315, Partial fill upon patient [...] Team Personnel Name: Diana Lam MD Position: [facility] Resident Member Role: PCP Address: Address: [address] [place] [address] [place] [address]- Care Team Related Persons Name: JONATHAN MUNROE Address: home [address] [place] [address] Name: NADIR VALENZUELA Address: home [address] [place] [address] Name: JONATHAN VALENZUELA Name: TANK BANKS Address: [place] [address]
--- OUTSIDE RECORDS SUMMARY | 2023-07-12 09:25 | XMS_ITS | Continuity of Care Document ---
Author Name Unknown Organization [facility] Address [address] [place] [address]- Care Team Providers Care Research Microbiologist Name Role Phone Leilani ELLIS, Breezy Gerard Primary Care Physician [facility] Date[facility]s): 05/26/22 - 06/25/22 [facility] [address] [place] [address] Allergies, Adverse Reactions, [...] 6 08/23/08 Given 1Result Comment: [05/13/2014] Fluvirax [id number] 2Admin Note: vis given 11/29/11 3Admin Note: [...] Gm, 3 Refills, Maintenance, 04/19/22 15:38:00 EST, [place], [facility], Partial fill upon patient request if the prescription is for a schedule II opioid drug., 1 sprays Nares, Both 2 times a day, 155,... Start Date: 04/19/22 Status: Ordered hydrochlorothiazide-olmesartan 12.5 mg-20 mg oral tablet 1 tablet, By Mouth, Daily, # 60 tablet, 1 Refills, Maintenance, 06/10/22 10:41:00 EST, Tablet, [facility]/pharmacy #0315, Partial fill upon patient [...] 14:45:00 EDT, Route to Pharmacy Electronically, [facility]/pharmacy #0315, Partial fill upon patient [...] 15:56:00 EST, Route to Pharmacy Electronically, [facility]/pharmacy #[id number], 155, cm, 02/08/22 15:09:00 EDT, Height Start Date: 04/13/22 Status: Ordered omeprazole 20 mg oral delayed release tablet 1 tablet = 20 mg, By Mouth, Daily, # 90 tablet, 1 Refills, Maintenance, 06/10/22 10:49:00 EST, EC Tablet, [facility]/pharmacy #0315, Partial fill upon patient [...] Team Personnel Name: Breezy Duke MD Position: [facility] Resident Member Role: PCP Address: Address: [address] [place] [address]- Care Team Related Persons Name: JONATHAN MUNROE Address: home [address] [place] [address] Name: NADIR VALENZUELA Address: home [address] [place] [address] Name: JONATHAN VALENZUELA Name: TANK BANKS Address: [place]
--- OUTSIDE RECORDS SUMMARY | 2023-07-12 09:25 | XMS_ITS | Continuity of Care Document ---
Author Name Unknown Organization [facility] Address [address] [place] [address]- Care Team Providers Care Char Dust Cleaner And Salvager Name Role Phone Diana Lam MD Primary Care Physician [phone] Encounter [facility] Date(s): 12/07/22 - 02/06/23 [facility] [address] [place] [address] Attending Physician: Christian Sotomayor MD Admitting [...] 6 08/23/08 Given 1Result Comment: [05/13/2014] Fluvirax [id number] 2Admin Note: vis given 11/29/11 3Admin Note: [...] Gm, 3 Refills, Maintenance, 04/19/22 15:38:00 EST, [place], [facility], Partial fill upon patient request [...] Pharmacy Electronically, [facility] ST[facility], 155, cm, 10/18/22 15:26:00 EDT, Height Start [...] Team Personnel Name: Diana Lam MD Position: [facility] Resident Member Role: PCP Address: Address: [address] [facility] [place] [address]- Care Team Related Persons Name: JONATHAN MUNROE Address: home [address] [place] [address] Name: NADIR VALENZUELA Address: home [address] [place] [address] Name: JONATHAN VALENZUELA Name: TANK BANKS Address: [place] [address]
--- OUTSIDE RECORDS SUMMARY | 2023-07-12 09:25 | XMS_ITS | Continuity of Care Document ---
Author Name Unknown Organization [facility] Address [address] [place] [address]- Care Team Providers Care Web Design Instructor Name Role Phone Leilani ELLIS, Breezy Gerard Primary Care Physician [facility] Date(s): 10/30/21 - 11/29/21 [facility] [address] [place] [address] [...] 6 08/23/08 Given 1Result Comment: [05/13/2014] Fluvirax [id number] 2Admin Note: vis given 11/29/11 3Admin Note: [...]
--- OUTSIDE RECORDS SUMMARY | 2023-07-12 09:25 | XMS_ITS | Continuity of Care Document ---
Author Name Unknown Organization [facility] Address [address] [place] [address]- Care Team Providers Care Candy Forming Machine Operator Name Role Phone Leilani ELLIS, Breezy Gerard Primary Care Physician Encounter [facility] Date(s): 02/08/22 - 03/10/22 [facility] [address] [place] [address] Allergies, Adverse Reactions, Alerts Substance [...] 6 08/23/08 Given 1Result Comment: [05/13/2014] Fluvirax [id number] 2Admin Note: vis given 11/29/11 3Admin Note: [...] 1 Refills, Maintenance, 02/08/22 15:58:00 EDT, Tablet, [facility]/pharmacy #0315, Partial [...] 02/08/22 15:59:00 EDT, Route to Pharmacy Electronically, [facility] [...] Sex Patient Care team information Personnel Name: Leilani ELLIS, Breezy Gerard Address: Address: [address] [place] [address] Adult [place], [place] [address]
--- OUTSIDE RECORDS SUMMARY | 2023-07-12 09:25 | XMS_ITS | Continuity of Care Document ---
Author Name Unknown Organization [facility] Address [address] [place] [address]- Care Team Providers Care Large Sheetfed Press Operator Name Role Phone Leilani ELLIS, Breezy Gerard Primary Care Physician Encounter [facility] Date(s): 08/10/21 - 09/09/21 [facility] [address] [place], [place] [address] Allergies, Adverse Reactions, Alerts Substance Reaction [...] 6 08/23/08 Given 1Result Comment: [05/13/2014] Fluvirax [id number] 2Admin Note: vis given 11/29/11 3Admin Note: VIS GIVEN-DATE12/21/07 4Admin Note: VIS given 06/22/11 5Admin Note: VIS 2011 GIVEN 6Admin Note: vis given Medications diclofenac 1% topical gel 1 application, Topically, 4 times a day, # 100 Gm, 0 Refills, Maintenance, 06/19/21 14:59:00 EST, [place], [facility], Partial fill upon patient request if the prescription is for a schedule II opioid drug., 155, cm, 06/19/21 14:39:00 EST, Height Start Date: 06/19/21 Status: Ordered naproxen 375 mg oral tablet 375 mg, 1, tablet, By Mouth, 2 times a day, for pain. take with food., # 30 tablet, Refills 0, Tot.Refills 0, Maintenance, 01/19/21 17:26:00 EDT, Route to Pharmacy Electronically, [facility]/pharmacy #0315, Partial fill upon patient request if the prescript... Start Date: 01/19/21 Status: Ordered SUMAtriptan 25 mg oral tablet 1 tablet = 25 mg, By Mouth, Daily, PRN for migraine headache, may repeat dose after 2 hours up to amaximum of 2. Italian label, # 9 tablet, 0 Refills, Maintenance, 07/02/21 14:18:00 EST, Tablet, [facility]/pharmacy #0315, Partial fill upon patient [...]
--- OUTSIDE RECORDS SUMMARY | 2023-07-12 09:25 | XMS_ITS | Continuity of Care Document ---
Author Name Unknown Organization [facility] Address [address] [place] [address]- Care Team Providers Care Backend Java Developer Name Role Phone Leilani ELLIS, Breezy Gerard Primary Care Physician [facility]s): 06/11/22 - 07/11/22 [facility] [address] [place] [address] Allergies, Adverse Reactions, Alerts [...] 6 08/23/08 Given 1Result Comment: [05/13/2014] Fluvirax [id number] 2Admin Note: vis given 11/29/11 3Admin Note: [...] 3 Refills, Maintenance, 04/19/22 15:38:00 EST, [place], [facility], Partial fill upon patient request if the prescription is for a schedule II opioid drug., 1 sprays Nares, Both 2 times a day, 155,... Start Date: 04/19/22 Status: Ordered hydrochlorothiazide-olmesartan 12.5 mg-20 mg oral tablet 1 tablet, By Mouth, Daily, # 60 tablet, 1 Refills, Maintenance, 06/10/22 10:41:00 EST, Tablet, [facility]/pharmacy #0315, Partial fill upon [...] 14:45:00 EDT, Route to Pharmacy Electronically, [facility]/pharmacy #0315, Partial fill upon [...] 04/13/22 15:56:00 EST, Route to Pharmacy Electronically, [facility]/pharmacy #0315, 155, cm, 02/08/22 15:09:00 EDT, Height Start Date: 04/13/22 Status: Ordered omeprazole 20 mg oral delayed release tablet 1 tablet = 20 mg, By Mouth, Daily, # 90 tablet, 1 Refills, Maintenance, 06/10/22 10:49:00 EST, EC Tablet, [facility]/pharmacy #0315, Partial fill upon [...] Team Personnel Name: Breezy Duke MD Position: [facility] Resident Member Role: PCP Address: Address: [address] [place] [address]- Care Team Related Persons Name: JONATHAN MUNROE Address: home [address] [place] [address] Name: NADIR VALENZUELA Address: home [address] [place] [address] Name: JONATHAN VALENZUELA Name: TANK BANKS Address: home [place], [place]
--- OUTSIDE RECORDS SUMMARY | 2023-07-12 09:25 | XMS_ITS | Continuity of Care Document ---
Author Name Unknown Organization [facility] Address [address] [place] [address]- Care Team Providers Care Chief Dispatcher Service Name Role Phone Leilani ELLIS, Breezy Gerard Primary Care Physician [facility] Date[facility]s): 01/19/21 - 02/18/21 [facility] [address] [place] [address]- Attending Physician: Admtr, Ar8 Allergies, Adverse Reactions, [...] 6 08/23/08 Given 1Result Comment: [05/13/2014] Fluvirax [id number] 2Admin Note: vis given 11/29/11 3Admin Note: VIS GIVEN-DATE12/21/07 4Admin Note: VIS given 06/22/11 5Admin Note: VIS 2011 GIVEN 6Admin Note: vis given Medications naproxen 375 mg oral tablet 375 mg, 1, tablet, By Mouth, 2 times a day, for pain. take with food., # 30 tablet, Refills 0, Tot.Refills 0, Maintenance, 01/19/21 17:26:00 EDT, Route to Pharmacy Electronically, [facility]/pharmacy #0004, Partial fill upon patient request if the [...]
--- OUTSIDE RECORDS SUMMARY | 2023-07-12 09:25 | XMS_ITS | Continuity of Care Document ---
Author Name Unknown Organization [facility] Address [address] [place] [address]- Care Team Providers Care [employer] H [employer] Agent Name Role Phone Leilani ELLIS, Breezy Gerard Primary Care Physician [facility] Date[facility]): [facility]22 - 03/10/22 [facility] [address] [place] [id number] Attending Physician: Admtr, Ar8 Allergies, Adverse Reactions, [...] 6 08/23/08 Given 1Result Comment: [05/13/2014] Fluvirax [id number] 2Admin Note: vis given 11/29/11 3Admin Note: [...] tablet, 0 Refills, Maintenance, 02/08/22 16:06:00 EDT, [facility]/pharmacy #[id number], Partial fill upon patient request if the prescription is fora schedule II opioid drug., 155, cm, 02/08/22 15:09... Start Date: 02/08/22 Status: Ordered diclofenac 1% topical gel 1 application, Topically, 4 times a day, # 100 Gm, 0 Refills, Maintenance, 11/02/21 14:44:00 EDT, Gel, [facility]/pharmacy #[id number], Partial fill upon patient request if the prescription is for a schedule II opioid drug., 155, cm, 11/02/21 14:18:00 EDT, Height Start Date: 11/02/21 Status: Ordered Excedrin Extra Strength oral tablet 2 tablet, By Mouth, Every 6 hours, PRN for headache, # 50 tablet, 1 Refills, Maintenance, 02/08/22 16:01:00 EDT, Tablet, [facility]/pharmacy #[id number], Partial fill upon patient request if the prescription is for a schedule II opioid drug., 2 tablet By Mouth Peace... Start Date: 02/08/22 Status: Ordered ibuprofen 800 mg oral tablet 800 mg, 1, tablet, By Mouth, 3 times a day, PRN, # 30 tablet, Refills 0, Tot. Refills 0, Maintenance, for pain, 11/02/21 14:45:00 EDT, Route to Pharmacy Electronically, [facility]/pharmacy #[id number], Partial fill upon patient request if the prescription is for a... Start Date: 11/02/21 Status: Ordered losartan 50 mg oral tablet 1 tablet = 50 mg, By Mouth, Daily, # 90 tablet, 1 Refills, Maintenance, 02/08/22 15:58:00 EDT, Tablet, [id number], Partial fill upon [...] 02/08/22 15:59:00 EDT, Route to Pharmacy Electronically, [facility]/pharmacy #[id number], Partial fill upon patient request [...] Name: Leilani ELLIS, Breezy Gerard Address: Address: [address] [place] [address] [place], [place] [address]
--- OUTSIDE RECORDS SUMMARY | 2023-07-12 09:25 | XMS_ITS | Continuity of Care Document ---
Author Name Unknown Organization [facility] Address [address] [place] [address]- Care Team Providers Care Hedge Fund Accountant Name Role Phone Genaro ELLIS, Diana Primary Care Physician [facility] Date[facility]s): 11/29/22 - 12/29/22 [facility] [address] [place] [id number] Allergies, Adverse Reactions, Alerts [...] 6 08/23/08 Given 1Result Comment: [05/13/2014] Fluvirax [id number] 2Admin Note: vis given 11/29/11 3Admin Note: [...] Gm, 3 Refills, Maintenance, 04/19/22 15:38:00 EST, [place], [facility]/pharmacy #[id number], Partial fill upon [...] 11 Refills, Maintenance, 10/18/22 15:46:00 EDT, [facility]/pharmacy #[id number], 1 tablet By Mouth Daily,x90 days, 155, cm, 10/18/22 15:26:00 EDT, Height Start Date: 10/18/22 Stop Date: 10/02/25 Status: Ordered lidocaine 5% topical ointment 1 application, Topically, 3 times a day, PRN Pain , Moderate, # 50 Gm, 0 Refills, Maintenance, 10/04/22 18:35:00 EDT, Ointment, [facility]/pharmacy #[id number], Partial fill upon [...] 23:10:00 EDT, Route to Pharmacy Electronically, [id number], 155, cm, 10/18/22 15:26:00 EDT, Height Start Date: 11/17/22 Status: Ordered omeprazole 20 mg oral delayed release tablet 1 tablet = 20 mg, By Mouth, Daily, # 90 tablet, 1 Refills, Maintenance, 06/10/22 10:49:00 EST, EC Tablet, [facility]/pharmacy #[id number], Partial fill upon [...] 11/02/21 14:41:00 EDT, Tablet, [facility]/pharmacy #[id number], Partial fill upon patient... Start [...] HOSPITAL Resident Member Role: PCP Address: Address: [address] [place] [address] [place] [address]- Care Team Related Persons Name: JONATHAN MUNROE Address: home [address] [place] [address] Name: NADIR VALENZUELA Address: home [address] [place] [address] Name: JONATHAN VALENZUELA Name: TANK BANKS Address: [place] [address]
--- OUTSIDE RECORDS SUMMARY | 2023-07-12 09:26 | XMS_ITS | Continuity of Care Document ---
Author Name Unknown Organization [facility] Address [address] [place] [address]- Care Team Providers Care Panelboard Operator Name Role Phone Leilani ELLIS, Breezy Gerard Primary Care Physician Encounter [facility] Date(s): 07/20/22 - 08/19/22 [facility] [address] [place] [id number] Allergies, Adverse Reactions, Alerts Substance [...] 6 08/23/08 Given 1Result Comment: [05/13/2014] Fluvirax [id number] 2Admin Note: vis given 11/29/11 3Admin Note: [...] 09/17/22 15:15:00 EDT, 08/17/22 15:15:00 EDT, Cream, [facility]/pharmacy #[id number], Partial fill upon patientrequest if the prescription is for a schedule II op... Start Date: 08/17/22 Stop Date: 09/17/22 Status: Ordered cetirizine 10 mg oral tablet 1 tablet = 10 mg, By Mouth, Daily, # 90 tablet, 3 Refills, Maintenance, 06/10/22 10:24:00 EST, Tablet, [facility]/pharmacy #[id number], Partial fill upon patient request if the prescription is for a schedule II opioid drug., 155, cm, 06/10/22 9:47:00 EST, Height Start Date: 06/10/22 Stop Date: 06/05/23 Status: Ordered cyclobenzaprine 10 mg oral tablet 10 mg, 1, tablet, By Mouth, 3 times a day, PRN, for 7 days, Begin with 1 tablet at nighttime, if tolerated can take up to 3 times a day. No operating heavy machinery while taking medication, # 21 tablet, Refills 0, Tot. Refills 0, Acute 08/24/22 15:1... Start Date: 08/17/22 Stop Date: 08/24/22 Status: Ordered cyclobenzaprine 5 mg oral tablet [...] Gm, 3 Refills, Maintenance, 04/19/22 15:38:00 EST, [place], [id number], Partial fill upon patient request if the prescription is for a schedule II opioid drug., 1 sprays Nares, Both 2 times a day, 155,... Start Date: 04/19/22 Status: Ordered hydrochlorothiazide-olmesartan 12.5 mg-20 mg oral tablet 1 tablet, By Mouth, Daily, # 60 tablet, 1 Refills, Maintenance, 06/10/22 10:41:00 EST, Tablet, [id number], Partial fill upon [...] for a... Start Date: 11/02/21 Status: Ordered naproxen 500 mg oral tablet 1 tablet = 500 mg, By Mouth, 2 times a day, for 14 days, # 28 tablet, 0 Refills, Acute 08/31/22 15:14:00 EDT, 08/17/22 15:14:00 EDT, Tablet, [id number], Partial fill upon patient request if the prescription is for a schedule II opioid drug., 1... Start Date: 08/17/22 Stop Date: 08/31/22 Status: Ordered nitroglycerin 0.3 mg sublingual tablet [...] Resident Member Role: PCP Address: Address: [address] [facility] [place] [address]- Care Team Related Persons Name: JONATHAN MUNROE Address: [address] [place] [address] Name: NADIR VALENZUELA Address: home [address] [place] [address] Name: JONATHAN VALENZUELA Name: TANK BANKS Address: [place] [address]
--- OUTSIDE RECORDS SUMMARY | 2023-07-12 09:26 | XMS_ITS | Continuity of Care Document ---
Author Name Unknown Organization [facility] ter Address [address] [place] [address]- Care Team Providers Care Printed Circuit Photographer Name Role Phone Breezy Duke MD Primary Care Physician Encounter [facility] Date(s): 09/24/20 - 12/06/[address] [address] Attending Physician: Roberto ELLIS, Schaeffer T Admitting Physician: Roberto ELLIS, Schaeffer T Referring Physician: Breezy Duke MD Allergies, Adverse [...] 6 08/23/08 Given 1Result Comment: [05/13/2014] Fluvirax [id number] 2Admin Note: vis given 11/29/11 3Admin Note: [...]
--- OUTSIDE RECORDS SUMMARY | 2023-07-12 09:26 | XMS_ITS | Continuity of Care Document ---
Author Name Unknown Organization [facility] Address [address] [place] [address]- Care Team Providers Care Stock Ranch Supervisor Name Role Phone Breezy Duke MD Primary Care Physician [facility] Date(s): 09/26/20 - 10/26/20 [facility] [address] [place], [place] [address] Allergies, Adverse Reactions, Alerts Substance Reaction [...] 6 08/23/08 Given 1Result Comment: [05/13/2014] Fluvirax [id number] 2Admin Note: vis given 11/29/11 3Admin Note: [...]
--- OUTSIDE RECORDS SUMMARY | 2023-07-12 09:26 | XMS_ITS | Continuity of Care Document ---
Author Name Unknown Organization [facility] Address [address] [place] [address]- Care Team Providers Care Business Intelligence Manager Name Role Phone Leilani ELLIS, Breezy Gerard Primary Care Physician [facility]counter [facility] Date(s): 08/10/22 - 09/10/22 [facility] [address] [place] [id number] Attending Physician: Nayan TOLEDO, Raven Mancera [...] 6 08/23/08 Given 1Result Comment: [05/13/2014] Fluvirax [id number] 2Admin Note: vis given 11/29/11 3Admin Note: [...] 1 Refills, Maintenance, 02/08/22 16:01:00 EDT, Tablet, [facility]/pharmacy #[id number], Partial fill upon patient request if the prescription is for a schedule II opioid drug., 2 tablet By Mouth Peace... Start Date: 02/08/22 Status: Ordered Flonase 50 mcg/inh nasal spray 1 sprays, Nares, Both, 2 times a day, # 16 Gm, 3 Refills, Maintenance, 04/19/22 15:38:00 EST, [place], [facility]/pharmacy #[id number], Partial fill upon patient request if the prescription is for a schedule II opioid drug., 1 sprays Nares, Both 2 times a day, 155,... Start Date: 04/19/22 Status: Ordered hydrochlorothiazide-olmesartan 12.5 mg-20 mg oral tablet 1 tablet, By Mouth, Daily, # 60 tablet, 0 Refills, Maintenance, 09/06/22 8:35:00 EDT, [facility] STORE [id number], 60, TAKE 1 TABLET BY MOUTH EVERY [...] Role: PCP Address: Address: [address] [facility] [place] [address]- Care Team Related Persons Name: JONATHAN MUNROE Address: home [address] [place] [address] Name: NADIR VALENZUELA Address: home [address] [place] [address] Name: JONATHAN VALENZUELA Name: TANK BANKS Address: [place] [address]
[2023-07-12] MEDS: Lactated Ringers 1,000 ML 999 ML IV (09:27)
[2023-07-12] MEDS: Aprepitant 32 MG/4.4 ML VIAL IVPUSH (09:27)
--- NOTE | 2023-07-12 10:13 | PHA.MEDREC ---
Pharmacy Consult ? Medication Reconciliation Pharmacy has reviewed the medication reconciliation.
[2023-07-12] MEDS: Scopolamine 1.5 MG PATCH.TD.3 TRANSDERMA (10:25)
--- NOTE | 2023-07-12 10:25 | PM.DS ---
DS: Providers Provider Date of Service: 07/13/23 Date of admission: 07/12/23 09:02 Primary care physician: Unknown Physician DS: Summary Hospital Course Hospital Course: ADMITTING DIAGNOSIS: morbid obesity, HTN, migraines, PONV DISCHARGE DIAGNOSIS: same, s/p laparoscopic sleeve gastrectomy PAST SURGICAL HISTORY: lap charline, breast augmentation, section PROCEDURE: upper endoscopy, laparoscopic sleeve gastrectomy DISCHARGE SUMMARY: History of Present Illness: The patient is a 53 year-old woman with a BMI of 37.4 kg/m2 and associated co-morbidities as described above. The patient had extensive work-up, lost 11.9 lbs preoperatively and was electively scheduled for laparoscopic, possible open sleeve gastrectomy and gastropexy. Risks and complications of the surgery were discussed with the patient in advance, particularly the possibility of , pulmonary embolism, anastomotic leak, bleeding, bowel injury, GERD, cardiac, renal or pulmonary complications. The patient understood all the risks and was in agreement with the surgical plan. Hospital Course: The patient underwent an uneventful laparoscopic sleeve gastrectomy with gastropexy on the day of admission. Postoperatively, the patient was transferred to the surgical floor. The patient received IV Acetaminophen and IV dilaudid for pain control. Patient was started on bariatric phase 1 diet POD #0. On postoperative day one, the patient was feeling well without nausea, vomiting, fevers, or tachycardia. The patient had some mild incisional pain and the abdomen was soft. On the morning of postoperative day one, the patient was continued on 1 ounce of water or ice every half hour. During the day, the patient did fairly well, having some incisional pain, but able to ambulate adequately and to tolerate liquids well. Since the patient is doing well, we decided that the patient was ready to be discharged. The patient was given instructions to follow-up with me next week and to call my office for any fever over 101, persistent abdominal pain, nausea, vomiting, GERD, symptoms of DVT such as calf tenderness, or leg swelling, or pulmonary embolism such as chest pain or shortness of breath. The patient was also instructed to drink 40-60 ounces of liquids per day using the 1-ounce cups. The patient had been given prescriptions for Tylenol for pain, Zofran prn for nausea, and pantoprazole and carafate previously. The patient was encouraged to ambulate and use the incentive spirometer. The patient was allowed to shower, but no baths, and encouraged to stay active at home. All of these instructions were given to the patient personally. All questions were answered and the patient understood all instructions, the instructions were also given to the patient in print. Time Attestation Discharge coordination time: Less than 30 minutes Quality: Safe Use of Opioids Does Pt have an Active Cancer Diagnosis on the Problem List?: No Quality: Stroke Does the patient have a stroke diagnosis?: No Physical Exam Vital Signs: Vital Signs: Last Vital Signs Temp 99.0 F 07/12/23 09:10 Pulse 65 07/12/23 09:10 Resp 16 07/12/23 09:10 BP 119/76 07/12/23 09:10 Pulse Ox 96 07/12/23 09:10 O2 Del Method Room Air 07/12/23 09:10 BMI result Body Mass Index 35.0 Discharge Plan Discharge Anticipated Discharge Date/Time: 07/13/23 10:23 Patient Disposition: Home, Self-Care Discharge Diagnosis: s/p sleeve gastrectomy Referrals: Physician,Unknown J [Primary Care Provider] - 1 Week Discharge Medications: Continued pantoprazole 40 mg tablet,delayed release (DR/EC) 40 mg PO DAILY Qty: 90 0RF ondansetron 4 mg tablet,disintegrating 4 mg PO Q12H Qty: 20 0RF Rx Instructions: Only take one every 12 hours as needed if you have nausea Held olmesartan-hydrochlorothiazide 20-12.5 mg tablet 1 tab PO DAILY Hold Instructions: Resume on 07/14/23. Check your blood pressure every morning as soon as you wake up and send it to Dr. Cristobal. Do no take the blood pressure medication if the blood pressure is below 120/70. Wait every day to hear back from Dr. Cristobal before you take the medication. Discontinued polyethylene glycol 3350 [Miralax] 17 gram powder in packet 17 g PO DAILY Qty: 14 0RF Rx Instructions: Mix each packet with 8oz of water, Crystal light, or Gatorade zero, or Propel and do 7 packets on 07/10/23 and another 7 packets on 07/11/23 Discharge Orders: Discharge Order (Routine); Ordered 07/13/23 Ordered By: Mega Cristobal Activity on Discharge: No heavy lifting Stand Alone Forms: Patient Portal Discharge page Care Plan Goals: weight loss Health Concerns: obesity Plan of Treatment: No tub baths, sex or returning to work until discussed at first post op appointment. No exercise, alcohol, tobacco or illegal drug use. Continue to use incentive spirometer hourly while awake. Walk in home for 5- 10 minutes every 2 hours during the first week. Continue phase 1 diet today and start phase 2 diet tomorrow morning. Follow all instructions in the bariatric handbook and call with any questions. 1. Please call your doctor or come back to the emergency room should any new symptoms arise. 2. You will receive a courtesy call from [facility] 24-48 hours after discharge. 3. Activity: abstain from alcohol, practice limited stair climbing, no bending, no driving, no exercise, no illicit substances, no lifting, no sex, no tub bath, no work. 4. Diet: continue as discussed with bariatric team.. 5. Dressing Change/Wound Care: Do not change or remove surgical dressings unless they are wet or soiled. 6. Call your doctor if: - Your temperature exceeds 101.5 F - You experience excessive pain or swelling - You have an unexpected reaction to medication - You have excessive bleeding - You experience continued vomiting/nausea - Your incision begins to separate - Your incision shows signs of infection such as increased redness, swelling, excessive pain, heat, or drainage (light blood or clear fluid is normal) 7. General instructions: No lifting greater than 5 lbs for 1 week and not more than 20lbs the next 3?weeks. No driving until seen at the office in 5-7 days after surgery. If you do not move your bowels in the next 2 days, please tell?Dr. Cristobal. Please walk around your home every hour or two to prevent blood clots from forming in your legs. You do not need to wake from sleeping to walk. Please sleep in a bed or couch to prevent kinking at the hips and knees. Please take your incentive spirometer (your lung product distribution specialist) home with you and use it for the next few days to prevent pneumonia. You may shower, no hot tubs, baths or swimming pools.?Please follow the post op diet instructions you are?given by Dr Bryan tapia? and text me daily at 5-6pm for an update.?If you have any issues or concerns or questions please communicate this to him via text.? The Celebrate shakes have all of the bariatric vitamins you need if you consume these shakes. If you are drinking other protein shakes, you will need to purchase the Celebrate multivitamins and calcium that are available in the hospital gift shop on the first floor of the main hospital.??Do not take anything without first discussing with Dr Cristobal. Please make sure you are consuming at least 40 ounces of fluids per day starting the?day AFTER your discharge from the hospital. Always drink 1-2 ml per minute using the 5ml?syringe. If you drink faster you may experience?bloating,?gas pain, burping, nausea or heartburn. In that case please slow down your pace and use the syringe to?understand better the?proper?pace and volume of drinking. Do not hesitate to contact the office with any questions at . The patient's medical history has been reviewed and they are considered low risk for post op DVT and therefore DVT prophylaxis is not considered necessary. Travel after surgery was reviewed. The patient has not disclosed any travel plans during the first 30 days after surgery and they have been advised that within the first 30 days after surgery any bus, plane, train or car travel over 2 hours in duration is contraindicated due to the possibility of developing blood clots from immobility. Any travel, needs to include periods of ambulation of 10 minutes in duration every 2 hours. The patient was instructed to discuss any plans for travel during this period with their bariatric surgeon. Assessment: stable, post op sleeve gastrectomy Discharge Date/Time: 07/13/23 09:25
--- NOTE | 2023-07-12 10:32 | PM.OP ---
Brief Operative Note Date of Service: 07/12/23 Pre-op diagnosis: Severe obesity with comorbidities (see below) Post-op diagnosis: same Procedure: INITIAL PATIENT BMI ON PRESENTATION AT OUR OFFICE: 36.1 kg/m2 LAST BMI BEFORE SURGERY: 35.1 kg/m2 COMORBIDITIES: hypertension, liver steatosis, liver fibrosis ?The patient presented to the Weight Management Program with significant obesity that was negatively impacting the patient's comorbidities as listed above.? The program is a phased program with a special focus on preoperative medical weight management to promote substantial weight loss and prepare the patients for the second phase of the program: bariatric surgery. The patient participated in an intensive weekly lifestyle ?intervention and exercise program during which the patient ?has lost between the initial office visit and the last preoperative visit 19.2lbs, or 9.71% of initial actual body weight. It was deemed appropriate for the patient to now have bariatric surgery. In light of the current Covid-19 pandemic and the well documented strong association of obesity and increased risk of worse outcomes if infected with Covid-19 (REFERENCES:https://pubmed.ncbi.nlm.nih.gov/13373389/,?https://pubmed.ncbi.nlm.nih.gov/94263264/), any delay in undergoing bariatric surgery may lead to the patient's worsening health condition and increased?risk of more severe Covid-19 disease if infected. In addition a recent?study from [facility] published in [employer] [facility] on 05/25/2021 ([email or web address]) found that, among patients with obesity, substantial weight loss achieved with surgery was associated with improved outcomes of COVID-19 infection. The findings suggest that obesity can be a modifiable risk factor for the severity of COVID-19 infection. In addition, the patient met the BMI-criteria for bariatric surgery based on the BMI on initial presentation. The patient should not be penalized for achieving such weight loss because ?it is not sustainable long-term without surgical intervention and it was achieved in preparation for bariatric surgery ?under my direction and based on my published research ([email or web address]).[email or web address] and?[email or web address].soard.org/article/[email or web address])32755-X/pdf) ?that a 10% preoperative weight loss improves long-term weight loss after surgery and reduces perioperative complications.? Insurance carriers such as [facility] have endorsed my recommendations ?and have included in their policies criteria to include a 10% preoperative weight loss requirement. PROCEDURE: Esophago-gastroscopy,\ laparoscopic sleeve gastrectomy and laparoscopic gastropexy INDICATIONS: This is a 53 year-old female who was electively scheduled for laparoscopic, possibly open sleeve gastrectomy. The risks and complications of the procedure were discussed with the patient in advance, particularly the possibility of ; pulmonary embolism; staple line leak; bleeding; GERD; cardiac, pulmonary, or renal complications; as well as long-term problems such as insufficient weight loss, vitamin deficiency, strictures, or ulcers. The patient understood all the risks, and was in agreement to proceed with surgery. DESCRIPTION OF PROCEDURE: After informed consent was obtained from the patient, the patient was given preoperative antibiotics, and was transferred to the operating room. After successful induction of general anesthesia, pneumatic compression devices were placed on both lower extremities. An upper endoscopy was performed next. The oropharynx and esophagus appeared to be within normal limits. There was no diaphragmatic hernia present, consistent with the findings of the preoperative upper GI. The stomach was entered. Then after all fluid and air were suctioned and the stomach was fully decompressed, the scope was withdrawn and secured in the mid esophagus. The patient was then prepped and draped in the usual sterile manner, and abdominal access was established at the right upper quadrant with the Chemo technique. A 12 mm blunt port was inserted, and the abdomen was insufflated with CO2 to a pressure of 15 mmHg. Under direct visualization, additional ports were placed, specifically two 5 mm Versi-step ports to the left upper quadrant, and a 5 mm Versi-Step port to the right upper quadrant. 1% lidocaine plain was used to infiltrate all port sites as well as all fascia defects. Using the EndoClose suture passer device, I placed a #1 Polysorb tie across the falciform ligament in order to retract it up against the abdominal wall and prevent injury of the ligament with our instruments during the procedure. Following that, the patient was placed in a steep reverse Trendelenburg position. An additional 5 mm port was placed to the right flank for the Mediflex retractor that was used to retract the left lobe of the liver. The gastro-esophageal fat pad was opened with the ultrasonic device (Thunderbeat, Olympus) and the anterior esophagus and hiatus were exposed. The angle of His was opened with the ultrasonic device the fundus of the stomach from any diaphragmatic and splenic attachments. I then opened the gastrocolic ligament between the transverse colon and the greater curvature of the stomach with the ultrasonic device to enter the lesser sac and facilitate the ligation of the short gastric vessels. I started at a mid-point along the greater curvature and using the Thunderbeat, all short gastric vessels were divided all the way to the angle of His until the left alejandrina was completely dissected at its entirety. I then divided the gastro-colic ligament distally to a distance of about 3-4 cm proximal to the pylorus. The stomach was then divided transversely with two Endo RANI-45 purple and three RANI-60 articulating purple loads using the SIGNIA stapler and loads. Every effort was made that the gastric sleeve had a tubular shape and an even caliber throughout. Once the sleeve resection was completed, the staple line of the gastric sleeve was reinforced with Hemoclips. The resected stomach was retrieved without difficulty from the Chemo port. A gastropexy was then performed in order to prevent postoperative GERD and partial gastric volvulus. Several interrupted 2.0 Surgidac sutures were placed between the sleeve's staple line and the previously divided greater omentum and gastro-colic ligament using the Endo-Stitch device. ?An upper endoscopy was performed. There was no narrowing at the GE junction. The scope was easily advanced all the way to the pylorus which was clearly visualized. There was no narrowing anywhere and the sleeve's caliber was even throughout. The sleeve's staple line was inspected and there was no evidence of ischemia, bleeding or dehiscence. At that point the gastroscope was withdrawn from the patient?s mouth while we were decompressing the bowel and the stomach from any remaining air. I looked into the lesser sac to see how the sleeve was situating and it was situating well. There was no bleeding from the staple line, spleen, or short gastric vessels. The Mediflex retractor was removed, and the undersurface of the liver was inspected and there was no bleeding. The patient was placed in supine position. I closed the fascial defect of the 12 mm port site with a figure of eight #1 Polysorb suture. Then 30cc Ropivacaine plain with 10 mg of Dexamethasone were used to infiltrate the fascial closure as well as all skin incisions. At this point, the abdomen was deflated, all ports were removed under direct vision, and no bleeding was noted from any of the port sites. The skin incisions were irrigated with saline and were closed with 4-0 absorbable monofilament sutures. Steri-Strips and OpSites were used to cover all incisions. The patient was extubated and was transferred in stable condition to the recovery room for further care. I was present and performed all oh parts of the procedure. Ms. Burnett was the salon assistant. There were no residents to assist with this case. Gurinder Cristobal MD, PhD, FACS Surgeon: Mega Cristobal MD Anesthesia: GETA, local and other (TAP block) Was an Staff Development Nurse used for this Procedure?: No Staff Development Nurse: Deedee Burnett Estimated blood loss (mL): 10 IV fluids (mL): 2,000 Urine output (mL): 0 (No Carvajal to record output) Pathology: other (Stomach) Condition: stable Disposition: PACU
--- NOTE | 2023-07-12 10:34 | P.PNGS_ITS ---
Subjective Subjective Date of Service: 07/13/23 Interval history: Feels well. Mild incisional pain. She is tolerating phase 1 bariatric diet . Physical Exam 2 Vital Signs: Vital Signs: Last Vital Signs Temp 99.0 F 07/12/23 09:10 Pulse 65 07/12/23 09:10 Resp 16 07/12/23 09:10 BP 119/76 07/12/23 09:10 Pulse Ox 96 07/12/23 09:10 O2 Del Method Room Air 07/12/23 09:10 BMI result Body Mass Index 35.0 GI: Inspection: Yes normal to inspection, Yes incision (clean, dry and intact) and Yes obesity Palpation (GI): Soft to palpation Extrem: Right lower extremity: normal to inspection (no calf tenderness) L eft lower extremity: normal to inspection ( calf tenderness) Objective Data Active Medications Fentanyl (Fentanyl Citrate/Pf 100 Mcg/2 Ml Vial) 25 mcg IVPUSH Q5M PRN; Protocol PRN Reason: Pain, Moderate(Pain Scale 4-6) Hydromorphone HCl (Hydromorphone Hcl 0.5 Mg/0.5 Ml Syringe) 0.25 mg IVPUSH Q5M PRN; Protocol PRN Reason: Pain, Severe (Pain Scale 7-10) Lactated Ringer's (Lr) 1,000 mls @ 100 mls/hr IVCONT .Q10H SYLVIA Lactated Ringer's (Lr) 1,000 mls @ 999 mls/hr IV .Q1H1M SYLVIA Stop: 07/12/23 11:15 Last Admin: 07/12/23 09:27 Dose: 999 mls/hr Documented By: INGA Ondansetron HCl (Ondansetron Hcl 4 Mg/2 Ml Vial) 4 mg IVPUSH ONCE PRN PRN Reason: Nausea and Vomiting Labs 07/13/23 05:16 07/13/23 05:16 Procedures Date of Service Date of Service: 07/13/23 Progress Note: A&P Assessment and plan (1) Obesity: Status: Acute Assessment and Plan: s/p laparoscopic sleeve gastrectomy and gastropexy Doing well Will check am labs and if OK the patient will be discharged home (2) BMI 35.0-35.9,adult: Status: Inactive (3) Hypertension: Status: Acute (4) Prediabetes: Status: Acute (5) Steatosis, liver: Status: Acute (6) Liver fibrosis: Status: Acute (7) S/P laparoscopic sleeve gastrectomy: Status: Acute Time Spent With Patient Time: Total time managing care of this patient today ____ minutes. Quality Stroke Does the patient have a stroke diagnosis?: No VTE Prior VTE?: No VTE Risk Level:: Surgical - moderate VTE Device Contraindication: N/A - Device Ordered VTE Drug Contraindication: Treatment Not Indicated
--- NOTE | 2023-07-12 10:35 | MHC.SHP ---
Pre-Procedural Eval Section A - 24 Hr Update-Section A only Date of Service: 07/12/23 The patient is an INPATIENT: Yes The patient has been examined within 24 hours of the surgical procedure. The History & Physical has been completed within 30 days and I have reviewed it.: Yes Section B - Complete if H&P > 30 days Chief Complaint: Obesity Relevant Family History (Specify if Yes): No Relevant Social History: None Present Medications: None Medical History: No relevant PMH History of Previous Operations: No relevant previous surgery Allergies: Allergies Allergy/AdvReac Type Severity Reaction Status Date / Time Penicillins [PCN] Allergy Severe Rash, all Verified 07/01/23 12:49 over body Review of Systems Sugical H&P ROS: Negative: Constitution, Cardiovascular, Respiratory, Neurological, Psychiatric, Hem-Onc, Allergic/Immunologic, Gastrointestinal, Genitourinary, Musculoskeletal, Integumentary, Endocrine and Eyes/Ears/Nose/Throat Exam Surgical H&P Exam: Normal: HEENT, Normal: Heart, Normal: Lungs, Normal: Extremities, Normal: Abdomen, Normal: Skin and Normal: Neurological Plan Diagnosis/Plan: Unchanged I have reviewed the history and physical and performed a pertinent physical examination on my patient. No changes have occurred unless specified. Time Spent With Patient Time: Total time managing care of this patient today ____ minutes.
[2023-07-12 13:33] LABS: Hematocrit 40.5 % (37.0-47.0); Hemoglobin 13.3 g/dl (12.0-16.0)
[2023-07-12 13:44] LABS: Anion Gap 12 (12-20); Blood Urea Nitrogen 11 mg/dL (9-16); Carbon Dioxide 27 mmol/L (22-29); Chloride 102 mmol/L (96-108); Creatinine Clr Calc Pharmacy 88.7; Estimated Glomerular Filt Rate > 60; Glucose Random 128 mg/dL (60-115); Potassium 3.7 mmol/L (3.3-5.1); Sodium 137 mmol/L (135-145)
[2023-07-12] MEDS: Metoclopramide HCl 10 MG/2 ML VIAL IVPUSH (15:21)
[2023-07-12] MEDS: Famotidine/PF 20 MG/2 ML VIAL IVPUSH ×2 (17:13→22:29)
[2023-07-12] MEDS: Acetaminophen 1,000 MG/100 ML PIGGYBACK 16.7 MG IV ×2 (17:16→22:29)
[2023-07-12] MEDS: Lactated Ringers 1,000 ML 100 ML IVCONT (17:19)
[2023-07-12] MEDS: 0.9 % Sodium Chloride Flush 3 ML SYRINGE IVFLUSH (18:51)
[2023-07-12] MEDS: ondansetron HCL 4 MG/2 ML VIAL IVPUSH (18:51)
[2023-07-13] MEDS: Lactated Ringers 1,000 ML 100 ML IVCONT (03:02)
[2023-07-13 03:09] VITALS: BP 117/56; PULSE 71; RESP 16; TEMP 36.8; O2SAT 93
[2023-07-13] MEDS: Acetaminophen 1,000 MG/100 ML PIGGYBACK 16.7 MG IV (04:26)
[2023-07-13 05:37] LABS: MANUAL DIFF FLAG NO
[2023-07-13 05:47] LABS: Basophils Percent Auto 0.1 % (0-2); Hematocrit 38.6 % (37.0-47.0); Hemoglobin 12.9 g/dl (12.0-16.0); Imm Gran Abs Auto 0.03 X10*3/uL (0.00-0.03); Imm Gran Pct Auto 0.3 % (0.0-0.4); Lymphocytes Absolute Auto 0.8 X10*3/uL (1.2-4.9); Lymphocytes Percent Auto 7.3 % (20-40); Mean Corpuscular HGB Conc 33.4 g/dl (31.0-35.0); Mean Corpuscular Hemoglobin 27.6 pg (27.0-33.0); Mean Corpuscular Volume 82.5 fL (80.0-98.0); Mean Platelet Volume 11.9 fL (9.4-12.3); Monocytes Absolute Auto 0.6 X10*3/uL (0.1-1.2); Monocytes Percent Auto 5.2 % (2-11); Neutrophils Absolute Auto 9.8 x10*3/uL (2.0-8.3); Neutrophils Percent Auto 87.1 % (45-73); Platelet Count 294 X10*3/uL (160-400); Red Blood Count 4.68 X10*6/uL (4.20-5.50); Red Cell Distribution Width 12.9 % (11.0-16.0); White Blood Count 11.2 X10*3/uL (4.8-10.8)
[2023-07-13 06:06] LABS: Anion Gap 14 (12-20); Blood Urea Nitrogen 9 mg/dL (9-16); Calcium 8.8 mg/dL (8.4-10.2); Carbon Dioxide 25 mmol/L (22-29); Chloride 100 mmol/L (96-108); Creatinine Clr Calc Pharmacy 86.4; Estimated Glomerular Filt Rate > 60; Glucose Random 110 mg/dL (60-115); Potassium 3.7 mmol/L (3.3-5.1); Sodium 135 mmol/L (135-145)
[2023-07-13] MEDS: Famotidine/PF 20 MG/2 ML VIAL IVPUSH (07:18)
[2023-07-13 07:59] VITALS: BP 122/58; PULSE 70; RESP 17; TEMP 36.5; O2SAT 96
--- NOTE | 2023-07-13 09:43 | MHC.CM.PN ---
Female s/p gastric sleeve lives with family independent discharged today to home self care. A family member provided transportation home.
--- NOTE | 2023-07-13 16:58 | HO.POSTANES ---
Post Anesthesia Evaluation Post Anesthesia Evaluation Date of Service: 07/13/23 Vital Signs: Vital Signs Temp Pulse Resp BP Pulse Ox O2 Del Method 07/13/23 07:59 97.7 F 70 17 122/58 L 96 Room Air Anesthesia: General Endotracheal-GETA Mental Status: Awake Pain Control: Satisfactory Nausea/Vomiting: None Hydration: Adequate Anesthesia-Related Issues: No Anes. Related Issues
== END 2023-07-13 09:25 | disposition home or self-care (01) | DRG 403 ==
LOC: HO.SSSA 10:24 → HO.S3 16:12
PROVIDERS: Physician Assistant; Admitting Provider Surgery; PCP Student in an Organized Health Care Education/Training Program; Visit Provider Surgery
PROC: 0DB64Z3 Excision of Stomach, Percutaneous Endoscopic Approach, Vertical (ICD-10-PCS; CPT 43845; principal; 2023-07-12 10:10)
DX: E66.01 Morbid (severe) obesity due to excess calories (principal); K74.00 Hepatic fibrosis, unspecified; G43.909 Migraine, unspecified, not intractable, without status migrainosus; R73.03 Prediabetes; I10 Essential (primary) hypertension; Z88.0 Allergy status to penicillin; Z68.35 Body mass index [BMI] 35.0-35.9, adult; K76.0 Fatty (change of) liver, not elsewhere classified; Z98.82 Breast implant status; Z79.899 Other long term (current) drug therapy
CPT/HCPCS: 36415; 80048; 85014; 85018; 85025; 86850; 86900; 86901; 88304; 88305; 88307; 88342; A4649; C9145; J0131; J1100; J1170; J1956; J2250; J2371; J2405; J2704; J2765; J2795; J3010; J7120

== ENCOUNTER → 2023-07-12 09:02 | Outpatient (BNV) | payer OTHER, SELFPAY | PROVIDERS: Admitting Provider Surgery; Visit Provider Surgery | DX: E66.09 Other obesity due to excess calories (principal); Z68.35 Body mass index [BMI] 35.0-35.9, adult; Z90.3 Acquired absence of stomach [part of]; Z98.84 Bariatric surgery status | CPT/HCPCS: 43659; 43775; 99024 ==

== ENCOUNTER 2023-07-19 10:28 | Outpatient (AMB) | payer OTHER, SELFPAY ==
--- NOTE | 2023-07-19 11:02 | A.OFFVIS_ITS ---
Intake VS Expanded 07/19/23 11:12 BP 122/55 L Blood Pressure Location Rt brachial Blood Pressure Position Sitting Pulse 74 Pulse Source Pulse Oximeter Temp 97.9 F Temperature Source Temporal Artery Scan Pulse Oximetry 98 Oxygen Delivery Method Room Air Height 5 ft 1 in Weight 172 lb 3.2 oz BMI 32.5 Body Fat % 41.6 Body Fat Mass 71.6 Fat Free Mass 100.8 Visceral Fat Rating 10.0 Body Water % 41.6 Body Water Mass 71.6 Muscle Mass/Score 95.6 Basal Metabolic Rate/Score 1,401 Intake Visit Reasons: (OV) PO LSG 07/12/23 Telegraph And Teletype Operator Required: No Allergies Penicillins [PCN] Allergy (Severe, Verified 07/19/23 11:04) Rash, all over body Medication List - Last Reconciled 07/19/23 by ZEINAB Pollack olmesartan-hydrochlorothiazide 20-12.5 mg 1 tab PO DAILY ondansetron 4 mg PO Q12H pantoprazole 40 mg PO DAILY HPI HPI Comments History of Present Illness Details 53-year-old female returns to the office today in follow-up. She is 7 days status post sleeve gastrectomy performed on 07/12/2023. She is tolerating 3 celebrate 4 in 1 shakes with 1 scoop each and approximately 40 oz of fluid per day. She moved her bowels and has no complaints of pain. She did not require her blood pressure medication this morning as her blood pressure has been under 120. [facility] Medical History (Updated 07/13/23 @ 00:02 by [facility] Siva) BMI 35.0-35.9,adult Situational anxiety PONV (postoperative nausea and vomiting) HTN (hypertension) Migraines BMI 34.0-34.9,adult Surgical History (Updated 07/19/23 @ 11:04 by Valencia Richard CMA) S/P laparoscopic sleeve gastrectomy H/O ovarian cystectomy (~2017) Hx laparoscopic cholecystectomy Hx of section Hx of cosmetic plastic surgery Hx of breast augmentation Family History Mother Heart disease Father Kidney disease Hypertension Diabetes Sister Hypertension Brother Hypertension Diabetes Son No problems noted. Daughter No problems noted. Daughter No problems noted. Social History Household Members: Family Housing: Apartment Are you a primary complex care nurse practitioner to a significant other at home: No Do you presently have visiting nurse or other home services: Yes Alcohol intake: never Patient Tobacco Use Status: Never used Tobacco service: No Physical Exam Vital Signs: Last Vital Signs Temp 97.9 F 07/19/23 11:12 Pulse 74 07/19/23 11:12 BP 122/55 L 07/19/23 11:12 Pulse Ox 98 07/19/23 11:12 Oxygen Delivery Method Room Air 07/19/23 11:12 BMI result Body Mass Index 32.5 GI Inspection: Yes incision (c/d/i) Assessment & Plan Assessment & Plan (1) S/P laparoscopic sleeve gastrectomy: Code(s): Z98.84 - Bariatric surgery status Plan: POD 7 s/p LSG on 07/12/[address] Cristobal Weight loss prior to surgery was 13.3 pounds or 6.7% TBWL. Original weight on 10/14/22 was 197.8 pounds and op weight was 184.5 pounds. Be sure to text Dr Cristobal exactly 1 week after surgery your weight from your home scale so he can adjust your meal plan. Continue meal plan until f/u w Linda in 2 weeks May shower, no submersion in bath for another week Continue abdominal binder with activity and exercise for the next 2 weeks. Exercise prior to surgery was treadmill, may resume No abdominal exercises for 6 weeks post operatively Will be emailed link to post op video for review Reminded of the pace of drinking, 2 mL per minute, 1 oz/15 min. Coding Level of Care Code Global (84920) Diagnoses S/P laparoscopic sleeve gastrectomy Z98.84
[2023-07-19 11:12] VITALS: BP 122/55; PULSE 74; TEMP 36.6; O2SAT 98; BMI 32.5
== END 2023-07-19 12:30 | disposition home or self-care (01) ==
PROVIDERS: PCP Internal Medicine; Visit Provider Physician Assistant Surgical
DX: E66.9 Obesity, unspecified (principal); Z68.32 Body mass index [BMI] 32.0-32.9, adult; Z90.3 Acquired absence of stomach [part of]; Z98.84 Bariatric surgery status
CPT/HCPCS: 99024

== ENCOUNTER → 2023-07-19 10:28 | Outpatient (BNVA) | payer OTHER, SELFPAY | PROVIDERS: PCP Internal Medicine; Visit Provider Physician Assistant Surgical | DX: Z48.815 Encounter for surgical aftercare following surgery on the digestive system (principal); Z98.84 Bariatric surgery status | CPT/HCPCS: 99212 ==

== ENCOUNTER 2023-08-09 11:53 | Outpatient (AMB) | payer OTHER, SELFPAY ==
--- NOTE | 2023-08-09 11:59 | MHC.OFFVISWM ---
Intake VS Expanded 08/09/23 12:05 BP 110/53 L Blood Pressure Location Rt brachial Blood Pressure Position Sitting Pulse 65 Pulse Source Pulse Oximeter Temp 97.0 F Temperature Source Tympanic Pulse Oximetry 95 Oxygen Delivery Method Room Air Height 5 ft 1 in Weight 165 lb BMI 31.2 Body Fat % 37.6 Body Fat Mass 62.0 Fat Free Mass 103.0 Visceral Fat Rating 9.0 Body Water % 44.4 Body Water Mass 73.2 Muscle Mass/Score 97.6 Basal Metabolic Rate/Score 1,411 Intake Visit Reasons: (OV) PO LSG 07/12/23 Allergies Penicillins [PCN] Allergy (Severe, Verified 07/19/23 11:04) Rash, all over body Medication List - Last Reconciled 08/09/23 by ZEINAB Santana docusate sodium (Colace) 100 mg PO DAILY olmesartan-hydrochlorothiazide 20-12.5 mg 1 tab PO DAILY ondansetron 4 mg PO Q12H pantoprazole 40 mg PO DAILY HPI HPI Comments History of Present Illness Details This?is a?53?yo female who is s/p LSG 07/12/2023. Presents for 3 week post op visit. 7.2lb weight loss since last visit 2 weeks ago with a BMI today of 31.2.? No complaints of nausea, emesis, abdominal pain or reflux, or constipation. Works at [employer] where there were shots fired. Feels stress from this. Has been drinking coffee since 2 weeks postop. Present meal plan includes: 6-8am Premier premade 2oz with 6oz UAM 9-11am ZP bar 12-2pm ZP bar 3-5pm another shake as above 6pm 4 forks scrambled eggs or 4tbsp GY 8-10pm another shake as above Exercise routine includes: trying to burn 300cal daily PFSH Medical History (Updated 07/26/23 @ 17:56 by Mega Cristobal MD) BMI 35.0-35.9,adult Situational anxiety PONV (postoperative nausea and vomiting) HTN (hypertension) Migraines BMI 34.0-34.9,adult Surgical History S/P laparoscopic sleeve gastrectomy H/O ovarian cystectomy (~2016) Hx laparoscopic cholecystectomy Hx of section Hx of cosmetic plastic surgery Hx of breast augmentation Family History Mother Heart disease Father Kidney disease Hypertension Diabetes Sister Hypertension Brother Hypertension Diabetes Son No problems noted. Daughter No problems noted. Daughter No problems noted. Social History Household Members: Family Housing: Apartment Are you a primary career guidance counselor to a significant other at home: No Do you presently have visiting nurse or other home services: Yes Alcohol intake: never Patient Tobacco Use Status: Never used Tobacco service: No Physical Exam Vital Signs: Last Vital Signs Temp 97.0 F 08/09/23 12:05 Pulse 65 08/09/23 12:05 BP 110/53 L 08/09/23 12:05 Pulse Ox 95 08/09/23 12:05 Oxygen Delivery Method Room Air 08/09/23 12:05 BMI result Body Mass Index 31.2 Assessment & Plan Assessment & Plan (1) Obesity: Code(s): E66.9 - Obesity, unspecified Qualifiers: Obesity type: due to excess calories Obesity classification: adult class 1 (BMI 30 - 34.9) Serious obesity comorbidity presence: with serious comorbidity Body mass index: BMI 34.0-34.9 Qualified Code(s): E66.09 - Other obesity due to excess calories; Z68.34 - Body mass index [BMI] 34.0-34.9, adult (2) S/P laparoscopic sleeve gastrectomy: Code(s): Z98.84 - Bariatric surgery status Plan Can use Isopure 1/[address] of current Premier mixed shake, or Fitcrunch bar in place of ZP bar. Encouraged pt to reach out to Dr Adams if unhappy with current meal plan or feeling hungry. Reinforced the importance of adhering to plan as given. No core work/heavy lifting until 6w postop. RTC 2 weeks. Patient is obese and is not considered stable at this time. I spent a total of 30 minutes reviewing/updating records, examining the patient and counseling the patient on weight management as detailed above. Coding Level of Care Code Est Pt Level 4 (55673) Diagnoses Class 1 obesity due to excess calories with serious comorbidity and body mass index (BMI) of 34.0 to 34.9 in adult E66.09; Z68.34 Obesity type: due to excess calories Obesity classification: adult class 1 (BMI 30 - 34.9) Serious obesity comorbidity presence: with serious comorbidity Body mass index: BMI 34.0-34.9 S/P laparoscopic sleeve gastrectomy Z98.84
[2023-08-09 12:05] VITALS: BP 110/53; PULSE 65; TEMP 36.1; O2SAT 95; BMI 31.2
== END 2023-08-09 12:58 | disposition home or self-care (01) ==
PROVIDERS: PCP Internal Medicine; Visit Provider Physician Assistant Surgical
DX: E66.09 Other obesity due to excess calories (principal); Z68.34 Body mass index [BMI] 34.0-34.9, adult; Z90.3 Acquired absence of stomach [part of]; Z98.84 Bariatric surgery status
CPT/HCPCS: 99024

== ENCOUNTER → 2023-08-09 11:53 | Outpatient (BNVA) | payer OTHER, SELFPAY | PROVIDERS: PCP Internal Medicine; Visit Provider Physician Assistant Surgical | DX: Z48.815 Encounter for surgical aftercare following surgery on the digestive system (principal); E66.09 Other obesity due to excess calories; Z68.31 Body mass index [BMI] 31.0-31.9, adult; Z98.84 Bariatric surgery status | CPT/HCPCS: 99212 ==

== ENCOUNTER 2023-08-23 13:02 | Outpatient (AMB) | payer OTHER, SELFPAY ==
--- NOTE | 2023-08-23 13:04 | A.OFFVIS_ITS ---
Intake VS Expanded 08/23/23 13:12 BP 116/59 L Blood Pressure Location Rt brachial Blood Pressure Position Sitting Pulse 62 Pulse Source Pulse Oximeter Temp 98.2 F Temperature Source Temporal Artery Scan Pulse Oximetry 100 Oxygen Delivery Method Room Air Height 5 ft 1 in Weight 163 lb 9.6 oz BMI 30.9 Body Fat % 37.3 Body Fat Mass 61.0 Fat Free Mass 102.6 Visceral Fat Rating 9.0 Body Water % 44.5 Body Water Mass 72.8 Muscle Mass/Score 97.2 Basal Metabolic Rate/Score 1,404 Intake Visit Reasons: (OV) PO LSG 07/12/23 Allergies Penicillins [PCN] Allergy (Severe, Verified 07/19/23 11:04) Rash, all over body Medication List - Last Reconciled 08/23/23 by ZEINAB Santana docusate sodium (Colace) 100 mg PO DAILY olmesartan-hydrochlorothiazide 20-12.5 mg 1 tab PO DAILY ondansetron 4 mg PO Q12H pantoprazole 40 mg PO DAILY HPI HPI Comments History of Present Illness Details This?is a?53?yo female who is s/p LSG 07/12/2023. Presents for 6 week post op visit. Weight at last visit on 08/09/2023 was 165 pounds with a BMI of 31.2, weight today is 163.6 pounds, representing a 1.4 pound weight loss with a BMI today of 30.9.? No complaints of emesis, abdominal pain or reflux, or constipation. Occasional nausea but he recognizes that this happens when she eats too fast. No BP meds today. BG level was 86 today. Pt feels good, clothes fit better, she feels comfortable and happy with her progress. Present meal plan includes: 6-8am Premier premade 2oz with 6oz UAM ( or Isopure 1/4 scoop) 9-11am ZP bar (or Fitcrunch) 12-2pm ZP bar 3-5pm another shake as above 6pm 4 forks scrambled eggs or 4tbsp GY 8-10pm another shake as above Exercise routine includes: trying to burn 300cal daily PFSH Medical History (Updated 07/26/23 @ 17:56 by Mega Cristobal MD) BMI 35.0-35.9,adult Situational anxiety PONV (postoperative nausea and vomiting) HTN (hypertension) Migraines BMI 34.0-34.9,adult Surgical History S/P laparoscopic sleeve gastrectomy H/O ovarian cystectomy (~2017) Hx laparoscopic cholecystectomy Hx of section Hx of cosmetic plastic surgery Hx of breast augmentation Family History Mother Heart disease Father Kidney disease Hypertension Diabetes Sister Hypertension Brother Hypertension Diabetes Son No problems noted. Daughter No problems noted. Daughter No problems noted. Social History Household Members: Family Housing: Apartment Are you a primary adult live in caregiver to a significant other at home: No Do you presently have visiting nurse or other home services: Yes Alcohol intake: never Patient Tobacco Use Status: Never used Tobacco service: No Assessment & Plan Assessment & Plan (1) Obesity: Code(s): E66.9 - Obesity, unspecified Qualifiers: Body mass index: BMI 34.0-34.9 Obesity classification: adult class 1 (BMI 30 - 34.9) Obesity type: due to excess calories Serious obesity comorbidity presence: with serious comorbidity Qualified Code(s): E66.09 - Other obesity due to excess calories; Z68.34 - Body mass index [BMI] 34.0-34.9, adult (2) S/P laparoscopic sleeve gastrectomy: Code(s): Z98.84 - Bariatric surgery status Plan Adjusted meal plan based on pt's work schedule: 7-9am Premier shake 4oz in 4oz UAM 10am-12pm Fitcrunch bar 1-3pm shake 4-6pm bar 7pm 4 forks protein, can introduce meats- can add 2 forks cooked veg, gave healthy foods list Continue 300 abel burned per day. Discussed short term goal of getting BMI<30. RTC 1 month. Patient is obese and is not considered stable at this time. I spent a total of 30 minutes reviewing/updating records, examining the patient and counseling the patient on weight management as detailed above. Coding Level of Care Code Est Pt Level 4 (30152) Diagnoses Class 1 obesity due to excess calories with serious comorbidity and body mass index (BMI) of 34.0 to 34.9 in adult E66.09; Z68.34 Body mass index: BMI 34.0-34.9 Obesity classification: adult class 1 (BMI 30 - 34.9) Obesity type: due to excess calories Serious obesity comorbidity presence: with serious comorbidity S/P laparoscopic sleeve gastrectomy Z98.84
[2023-08-23 13:12] VITALS: BP 116/59; PULSE 62; TEMP 36.8; O2SAT 100; BMI 30.9
== END 2023-08-23 13:42 | disposition home or self-care (01) ==
PROVIDERS: PCP Internal Medicine; Visit Provider Physician Assistant Surgical
DX: E66.09 Other obesity due to excess calories (principal); Z68.30 Body mass index [BMI] 30.0-30.9, adult; Z90.3 Acquired absence of stomach [part of]; Z98.84 Bariatric surgery status
CPT/HCPCS: 99024

== ENCOUNTER → 2023-08-23 13:02 | Outpatient (BNVA) | payer OTHER, SELFPAY | PROVIDERS: PCP Internal Medicine; Visit Provider Physician Assistant Surgical | DX: E66.09 Other obesity due to excess calories (principal); Z71.3 Dietary counseling and surveillance; Z98.84 Bariatric surgery status; Z68.30 Body mass index [BMI] 30.0-30.9, adult | CPT/HCPCS: 99212 ==

== ENCOUNTER 2023-09-22 13:11 | Outpatient (AMB) | payer OTHER, SELFPAY ==
--- NOTE | 2023-09-22 13:03 | A.OFFVIS_ITS ---
VS Expanded 09/22/23 13:06 Height 5 ft 1 in Weight 158 lb BMI 29.9 Intake Visit Reasons: (TELEPHONE) PO LSG 07/12/23 Allergies Penicillins [PCN] Allergy (Severe, Verified 07/19/23 11:04) Rash, all over body Medication List - Last Reconciled 09/22/23 by ZEINAB Santana docusate sodium (Colace) 100 mg PO DAILY ondansetron 4 mg PO Q12H pantoprazole 40 mg PO DAILY HPI Comments Details: This?is a?53?yo female who is s/p LSG 07/12/2023. Presents for 2 month post op visit. Weight at last visit on 08/23/2023 was 163.6 pounds with a BMI of 30.9, weight today is 158 pounds, representing a 5.6 pound weight loss with a BMI today of 29.9.? No complaints of nausea, emesis, abdominal pain or reflux, or constipation. BP well controlled, BS well controlled, not taking HTN meds any longer. Present meal plan includes: 7-9am Premier shake 4oz in 4oz UAM 10am-12pm Fitcrunch bar 1-3pm shake 4-6pm bar 7pm 4 forks protein, can introduce meats- can add 2 forks cooked veg reports she is eating regular foods more than once a day- usually twice a day Exercise routine includes: trying to burn 300 calories daily- exercising at home every [facility] Medical History (Updated 09/22/23 @ 13:15 by ZEINAB Santana) BMI 35.0-35.9,adult Situational anxiety PONV (postoperative nausea and vomiting) HTN (hypertension) Migraines BMI 34.0-34.9,adult Surgical History S/P laparoscopic sleeve gastrectomy H/O ovarian cystectomy (~2016) Hx laparoscopic cholecystectomy Hx of section Hx of cosmetic plastic surgery Hx of breast augmentation Family History Mother Heart disease Father Kidney disease Hypertension Diabetes Sister Hypertension Brother Hypertension Diabetes Son No problems noted. Daughter No problems noted. Daughter No problems noted. Social History (Reviewed 08/09/23 @ 12:07 by JAMIL Pennington Household Members: Family Housing: Apartment Are you a primary caregiver assisted living to a significant other at home: No Do you presently have visiting nurse or other home services: Yes Alcohol intake: never Patient Tobacco Use Status: Never used Tobacco service: No Telehealth Telehealth Telehealth Platform: Telephone Location of provider rendering services: practice address Location of patient: other Patient Identification confirmed using: Name, : Yes Telehealth method: voice only Patient verbally consented to treatment: Yes Patient verbally consented to billing insurance company: Yes Patient informed of any privacy concerns related to visit: Yes Minutes spent on Phone/Video with Pt.: 16 Assessment & Plan Assessment & Plan (1) S/P laparoscopic sleeve gastrectomy: Code(s): Z98.84 - Bariatric surgery status Category: Surgical (2) Overweight: Code(s): E66.3 - Overweight Category: Medical Plan Pt may be low on total protein intake if now having one less shake and bar. Will adjust meal plan to the following: One Premier shake per day, does not have to mix with almond milk One Fitcrunch bar 2 small meals of 1-2oz solid protein, 1oz veg Pt with occasional reflux, discussed pace of eating and drinking which pt admits may be a bit faster than appropriate. PCP prescribed famotidine, pt can use for PRN use. RTC 1 month. Meal plan texted to pt per pt request. Patient is overweight and is not considered stable at this time. I spent a total of 30 minutes reviewing/updating records, examining the patient and counseling the patient on weight management as detailed above. Medications: New inulin 2 grams PO DAILY 90 tabs 3RF
[2023-09-22 13:06] VITALS: BMI 29.9
== END 2023-09-22 13:20 | disposition home or self-care (01) ==
LOC: HO.HBS 13:11
PROVIDERS: PCP Internal Medicine; Visit Provider Physician Assistant Surgical
DX: E66.3 Overweight (principal); Z68.35 Body mass index [BMI] 35.0-35.9, adult; Z90.3 Acquired absence of stomach [part of]; Z98.84 Bariatric surgery status
CPT/HCPCS: 99024

== ENCOUNTER 2023-10-25 16:56 | Emergency (ER) | payer OTHER, SELFPAY ==
--- NOTE | 2023-10-25 | ECG_ITS ---
Test Reason : ABD PAIN Blood Pressure : / mmHG Vent. Rate : 088 BPM Atrial Rate : 088 BPM P-R Int : 130 ms QRS Dur : 074 ms QT Int : 330 ms P-R-T Axes : 031 037 025 degrees QTc Int : 399 ms Normal sinus rhythm Normal ECG When compared with ECG of 03-NOV-2022 13:25, T wave inversion now evident in Anterior leads Referred By: Netta De Jesus Electronically Signed By:SHARON LANGSTON
--- NOTE | ~2023-10-25 | CT_ITS ---
EXAMINATION: CT ABDOMEN AND PELVIS WITH CONTRAST CLINICAL INFORMATION: Right lower quadrant pain. COMPARISON: Abdominal ultrasound dated 12/21/2022. TECHNIQUE: Multidetector volumetric images were obtained from the superior aspect of the liver through the pubic symphysis following administration 85 mL of Omnipaque 350 intravenous contrast. Sagittal and coronal reformatted images were obtained on the technologist's workstation. Oral contrast: No This CT examination was performed using dose optimization techniques as appropriate, variously including the following: *Automated exposure control *Adjustment of mA and/or kV according to patient size (this includes techniques or standardized protocols for targeted exams where dose is matched to indication/reason for exam; i.e. extremities or head) *Use of iterative reconstruction technique DLP: 45 mGy-cm FINDINGS: LUNG BASES: There is mild bibasilar dependent hypoaeration. Bilateral breast implants are noted. LIVER, GALLBLADDER, AND BILIARY TREE: The liver is normal in size, shape, and attenuation. There are benign, calcified granulomas. No focal hepatic solid lesion or biliary ductal dilatation is present. The gallbladder is surgically absent. PANCREAS: Unremarkable. SPLEEN: Unremarkable. ADRENAL GLANDS: Unremarkable. KIDNEYS AND URETERS: The kidneys are normal in size, shape, and attenuation. No hydronephrosis, hydroureter, or calculi seen. There are benign, simple appearing low-attenuation right renal cysts, too small for full characterization with CT. No perinephric stranding. BLADDER: Decompressed and otherwise unremarkable. GASTROINTESTINAL TRACT: There are gastroesophageal surgical dahiana. There is wall thickening of the cecum, ascending colon, hepatic flexure and the proximal transverse colon. No obstruction, free intraperitoneal air or abscess is seen. No diverticulosis or diverticulitis is seen. The vermiform appendix appears normal. ABDOMINAL WALL: No significant hernia is appreciated. LYMPH NODES: Normal. VASCULAR: Unremarkable. PELVIC VISCERA: The uterus is anteverted and retroflexed. There are uterine fibroids, the largest in the posterior body measuring 4.8 x 4.1 cm, with coarse central calcifications. A left hydrosalpinx is question (i.e., 2:68 and 7:40). OSSEOUS STRUCTURES: There is multi-level thoracolumbar endplate arthropathy. At T10-T11, there is mild vacuum disc phenomenon. No acute or aggressive osseous finding is noted. CT/CT abdomen pelvis w IV con IMPRESSION: 1. There is wall thickening of the right hemicolon, with differential considerations including infectious colitis, inflammatory bowel disease, ischemia and, less likely, neoplasm. This could be more fully evaluated with a barium enema or endoscopy, if clinically indicated. 2. There is uterine fibroid disease. A left hydrosalpinx is questioned. These findings could be more fully evaluated with dedicated pelvic ultrasound, if clinically indicated. 3. There is degenerative disc disease at T10-T11. No acute or aggressive osseous finding is noted. Fleischner guidelines were followed.
[2023-10-25 17:03] VITALS: BP 114/92; BP 134/76; PULSE 103; PULSE 98; RESP 18; TEMP 38.1; O2SAT 98; BMI 29.7
[2023-10-25 17:20] LABS: MANUAL DIFF FLAG NO
[2023-10-25 17:22] LABS: Basophils Percent Auto 0.2 % (0-2); Hemoglobin 13.4 g/dl (12.0-16.0); Imm Gran Abs Auto 0.04 X10*3/uL (0.00-0.03); Imm Gran Pct Auto 0.4 % (0.0-0.4); Lymphocytes Absolute Auto 1.3 X10*3/uL (1.2-4.9); Mean Corpuscular HGB Conc 33.5 g/dl (31.0-35.0); Mean Corpuscular Hemoglobin 28.1 pg (27.0-33.0); Mean Corpuscular Volume 83.9 fL (80.0-98.0); Mean Platelet Volume 11.8 fL (9.4-12.3); Monocytes Absolute Auto 0.6 X10*3/uL (0.1-1.2); Monocytes Percent Auto 5.9 % (2-11); Neutrophils Absolute Auto 8.8 x10*3/uL (2.0-8.3); Neutrophils Percent Auto 81.5 % (45-73); Platelet Count 219 X10*3/uL (160-400); Red Blood Count 4.77 X10*6/uL (4.20-5.50); Red Cell Distribution Width 13.3 % (11.0-16.0); White Blood Count 10.8 X10*3/uL (4.8-10.8)
--- NOTE | 2023-10-25 17:26 | ED.GENADULT ---
HPI - General Adult General Chief complaint: Abdominal Pain Stated complaint: ABD PAIN Time Seen by Provider: 10/25/23 17:01 History of Present Illness HPI narrative: 53 y/o F patient; PMH migraines, HTN, recent sleeve gastectomy and gastropexy 07/12/2023, cholecystectomy,; presents from PCP office reporting two days of nausea with vomiting, loose bowel movements, and RLQ abdominal discomfort. Associated with food aversion. Febrile to 102 at home and took Tylenol at 1230 prior to arrival. Denies known sick contacts. Denies: cough/congestion, chest pain, SOB, headache. Patient currently gets irregular periods, last was small amount of spotting several months ago. Related Data Previous Rx's ?Medication ?Instructions ?Recorded ondansetron 4 mg disintegrating 4 mg PO Q12H nausea and vomiting 07/01/23 tablet #20 tabs docusate sodium 100 mg capsule 100 mg PO DAILY #90 caps 07/26/23 (Colace) inulin 2 gram chewable tablet 2 g PO DAILY #90 tabs 09/22/23 Allergies Allergy/AdvReac Type Severity Reaction Status Date / Time Penicillins [PCN] Allergy Severe Rash, all Verified 10/25/23 17:04 over body Review of Systems Review of Systems: Yes all other systems are reviewed and are negative PMFSH Past Medical History Attestation statement: The following information was validated with the patient. Source: old records reviewed Medical History BMI 35.0-35.9,adult Situational anxiety PONV (postoperative nausea and vomiting) HTN (hypertension) Migraines BMI 34.0-34.9,adult Surgical History S/P laparoscopic sleeve gastrectomy H/O ovarian cystectomy (~2017) Hx laparoscopic cholecystectomy Hx of section Hx of cosmetic plastic surgery Hx of breast augmentation Family History Family History Mother Heart disease Father Kidney disease Hypertension Diabetes Sister Hypertension Brother Hypertension Diabetes Son No problems noted. Daughter No problems noted. Daughter No problems noted. Social History Social History Household Members: Family Housing: Apartment Are you a primary lawn caretaker to a significant other at home: No Do you presently have visiting nurse or other home services: Yes Alcohol intake: never Patient Tobacco Use Status: Never used Tobacco Smoked in Last 30 Days: No Use of substances other than those prescribed or required for medical reasons: No Advance Directives: No Advance Directives Information Provided: No Do you have a plan to hurt others: No Plan Patient : No service: No Physical Exam ED Vital Signs: Vital Signs - 24 hr 10/25/23 17:03 10/25/23 19:30 Temperature 100.5 F H 99.5 F Pulse Rate 98 90 Respiratory Rate 18 17 Blood Pressure 134/76 104/55 L Pulse Oximetry 98 96 Oxygen Delivery Method Room Air Room Air BMI result Body Mass Index 29.7 Patient is febrile, normotensive without tachycardia Const General: cooperative Orientation/consciousness: patient oriented x3 HENMT Head: Yes normal to inspection Eyes General: appearance normal, both eyes and all related structures Neck Neck: Yes normal visual inspection, Yes full ROM, Yes supple and No tender Chest Chest palpation & inspection: normal inspection of the chest and normal palpation of entire chest wall Resp Effort & Inspection: normal respiratory effort, able to speak in complete sentences, no cough and no respiratory distress Auscultation: clear to auscultation bilaterally Cardio Rate: regular rate Rhythm: regular rhythm Peripheral pulses: Peripheral pulses 2+ throughout GI Other: RUQ and RLQ abdominal tenderness to palpation Palpation (GI): Soft to palpation, not firm, no guarding and not rigid Auscultation: normal bowel sounds Neuro General: patient oriented x3 Course Course Course Narrative: Patient is febrile with normotension and without tachycardia. Ordered for laboratory studies including LA and blood cultures, 1L IVF, and CT Abdomen/Pelvis W IV and PO Contrast. Reevaluation(s) Reevaluation #1: Labs reviewed. No significant leukocytosis. Baseline Hgb. No transaminitis, normal lipase. Pending CT Abdomen/Pelvis. Patient reporting some mild GERD, states she did not take her famotidine tonight. Provided 20mg IV. Plan: Sign out to Dr. Escalante pending CT imaging, re-evaluation, and disposition Condition: Stable Medications Administered Discontinued Medications Generic Name Dose Route Start Last Admin Trade Name Freq PRN Reason Stop Dose Admin Acetaminophen 975 mg 10/25/23 17:51 10/25/23 18:04 Acetaminophen 325 Mg Tablet PO 10/25/23 17:52 975 mg ONCE ONE Administration Hydromorphone HCl 0.5 mg 10/25/23 17:51 10/25/23 18:03 Hydromorphone Hcl 0.5 Mg/0.5 Ml Syringe IVPUSH 10/25/23 17:52 0.5 mg ONCE ONE Administration Protocol Sodium Chloride 1,000 mls @ 999 mls/hr 10/25/23 18:00 10/25/23 18:03 Ns IV 10/25/23 19:00 999 mls/hr .Q1H1M SYLVIA Administration Iohexol 100 ml 10/25/23 19:15 10/25/23 19:16 Iohexol 350 Mg/Ml 100 Ml Infus..Btl IV 10/25/23 19:16 85 ml ONCE ONE Administration Ondansetron HCl 4 mg 10/25/23 17:51 10/25/23 18:03 Ondansetron Hcl 4 Mg/2 Ml Vial IVPUSH 10/25/23 17:52 4 mg ONCE ONE Administration Medical Decision Making Lab Data 10/25/23 17:15 10/25/23 17:15 Labs: Lab Results 10/25/23 10/25/23 10/25/23 Range/Units 17:15 17:30 17:31 WBC 10.8 (4.8-10.8) X10*3/uL RBC 4.77 (4.20-5.50) X10*6/uL Hgb 13.4 (12.0-16.0) g/dl Hct 40.0 (37.0-47.0) % MCV 83.9 (80.0-98.0) fL MCH 28.1 (27.0-33.0) pg MCHC 33.5 (31.0-35.0) g/dl RDW 13.3 (11.0-16.0) % Plt Count 219 D (160-400) X10*3/uL MPV 11.8 (9.4-12.3) fL Immature Gran % (Auto) 0.4 (0.0-0.4) % Neut % (Auto) 81.5 H (45-73) % Lymph % (Auto) 12.0 L (20-40) % [place] % (Auto) 5.9 (2-11) % Eos % (Auto) 0.0 (0-4) % Baso % (Auto) 0.2 (0-2) % Lymph # (Auto) 1.3 (1.2-4.9) X10*3/uL [place] # (Auto) 0.6 (0.1-1.2) X10*3/uL Eos # (Auto) 0.0 (0.0-0.4) X10*3/uL Baso # (Auto) 0.0 (0.0-0.2) X10*3/uL Abs Immat Gran (auto) 0.04 H (0.00-0.03) X10*3/uL Absolute Neuts (auto) 8.8 H (2.0-8.3) x10*3/uL Absolute Nucleated RBC 0.000 (0.0-0.012) X10*3/uL Nucleated RBC % (auto) 0.0 (0.0-0.2) /100WBC Sodium 137 (135-145) mmol/L Potassium 3.6 (3.3-5.1) mmol/L Chloride 105 (96-108) mmol/L Carbon Dioxide 23 (22-29) mmol/L Anion Gap 13 (12-20) BUN 11 (9-16) mg/dL Creatinine 0.71 (0.5-1.4) mg/dL Estim Creat Clear Calc 82.8 Estimated GFR > 60 Random Glucose 103 (60-115) mg/dL Lactic Acid 1.2 (0.5-2.0) mmol/L Calcium 8.9 (8.4-10.2) mg/dL Total Bilirubin 1.1 H (0.0-1.0) mg/dL AST 24 (5-31) U/L ALT 22 (0-31) U/L Alkaline Phosphatase 120 H (39-117) U/L Troponin I High Sens < 2.7 (<3.5-17.0) ng/L Total Protein 7.4 (6.5-8.0) g/dL Albumin 3.7 (3.5-5.0) g/dL Lipase 17 (8-78) U/L Urine Color Yellow Urine Appearance Cloudy Urine pH 5.5 (5.0-9.0) Ur Specific [place] >= 1.030 H (1.005-1.025) Urine Protein 100 (2+) H (Neg-Trace) mg/dL Urine Glucose (UA) Negative (Negative) mg/dL Urine Ketones 40 (Negative) mg/dL Urine Blood Moderate (2+) H (Negative) Urine Nitrite Negative (Negative) Ur Leukocyte Esterase Negative (Negative) Urine RBC 3-5 H (0-2) /HPF Urine WBC 0-5 (0-5) /HPF Ur Squamous Epith Cells 3-5 (0-2) /HPF Urine Bacteria 1+ (None Seen) Hyaline Casts 0-2 (0-2) /LPF Influenza Type A (PCR) NEGATIVE (Negative) Influenza Type B (PCR) NEGATIVE (Negative) RSV RNA Qual (PCR) NEGATIVE (Negative) SARS-CoV-2 RNA (RT-PCR) NEGATIVE (Negative) Discharge Plan Discharge Clinical Impression: Fever, Abdominal pain Patient Disposition: Still a Patient Prescriptions: No Action docusate sodium [Colace] 100 mg capsule 100 mg PO DAILY Qty: 90 0RF ondansetron 4 mg tablet,disintegrating 4 mg PO Q12H Qty: 20 0RF Rx Instructions: Only take one every 12 hours as needed if you have nausea inulin 2 gram tablet,chewable 2 g PO DAILY Qty: 90 3RF Print Language: Stateless
[2023-10-25 17:44] LABS: Alanine Aminotransferase 22 U/L (0-31); Albumin Level 3.7 g/dL (3.5-5.0); Alkaline Phosphatase 120 U/L (39-117); Anion Gap 13 (12-20); Aspartate Amino Transferase 24 U/L (5-31); Bilirubin Total 1.1 mg/dL (0.0-1.0); Blood Urea Nitrogen 11 mg/dL (9-16); Calcium 8.9 mg/dL (8.4-10.2); Carbon Dioxide 23 mmol/L (22-29); Chloride 105 mmol/L (96-108); Creatinine Clr Calc Pharmacy 82.8; Estimated Glomerular Filt Rate > 60; Glucose Random 103 mg/dL (60-115); Lipase 17 U/L (8-78); Potassium 3.6 mmol/L (3.3-5.1); Sodium 137 mmol/L (135-145); Total Protein 7.4 g/dL (6.5-8.0)
[2023-10-25 17:47] LABS: Troponin-I High Sensitivity < 2.7 ng/L (<3.5-17.0)
[2023-10-25 17:48] LABS: Appearance Urine Cloudy; Glucose Urine UA Negative (Negative); Leukocyte Esterase Urine Negative (Negative); Nitrite Urine Negative (Negative); PH 5.5 (5.0-9.0); Specific Gravity - Urine >= 1.030 (1.005-1.025); UMIC TRIGGER UACC YES; Urine Blood Moderate (2+) (Negative); Urine Ketones 40 mg/dL (Negative); Urine Protein 100 (2+) mg/dL (Neg-Trace)
--- NOTE | 2023-10-25 17:50 | PC.NURSE ---
a&ox4. vss and up to date aside from 100.5 oral temp. nsr on the monitoring manager. pt presents to the ED from PCP d/t 03/08 RLQ abd pain that radiates to RLE as well as n/v/d/poor PO intake x 2 days. hx of gastric bypass surgery this past june. abd tender upon palpation. 20gIV placed in the left AC - labs obtained/sent to lab. UA also sent. no sob/wob noted. respirations even and unlabored. pt seen by ED provider/aware of plan of care moving forward. call person placed within reach.
[2023-10-25 17:52] LABS: Lactic Acid 1.2 mmol/L (0.5-2.0)
[2023-10-25 17:54] LABS: Color Urine Yellow
[2023-10-25] MEDS: 0.9 % Sodium Chloride 1,000 ML 999 ML IV (18:03)
[2023-10-25] MEDS: HYDROmorphone HCl 0.5 MG/0.5 ML SYRINGE IVPUSH (18:03)
[2023-10-25] MEDS: ondansetron HCL 4 MG/2 ML VIAL IVPUSH (18:03)
[2023-10-25] MEDS: Acetaminophen 325 MG TABLET 975 MG PO (18:04)
--- NOTE | 2023-10-25 18:05 | PC.NURSE ---
IVF/medication administered per provider order. effectiveness pending.
[2023-10-25 18:07] LABS: Bacteria Urine 1+ (None Seen); Hyaline Casts Urine 0-2 /LPF (0-2); WBC Urine 0-5 /HPF (0-5)
[2023-10-25 18:24] LABS: Influenza A PCR NEGATIVE (Negative); Influenza B PCR NEGATIVE (Negative); Resp Syncy Virus RNA Qual PCR NEGATIVE (Negative); SARS COV2 PCR INHOUSE NEGATIVE (Negative)
[2023-10-25] MEDS: iohexoL 350 MG/ML 100 ML INFUS..BTL IV (19:16)
[2023-10-25 19:30] VITALS: BP 104/55; PULSE 90; RESP 17; TEMP 37.5; O2SAT 96
--- NOTE | 2023-10-25 20:29 | PC.NURSE ---
Assumed care of p at 1900. PT a/o, vss, complains of heartburn. Awaiting for CT results- explained to PT. aware, awaiting new orders
[2023-10-25] MEDS: Famotidine/PF 20 MG/2 ML VIAL IVPUSH (21:25)
[2023-10-25 23:01] VITALS: BP 111/62; PULSE 75; RESP 16; TEMP 37; O2SAT 96
[2023-10-25] MEDS: Loperamide HCl 2 MG CAPSULE 4 MG PO (23:18)
[2023-10-25] MEDS: oxyCODONE HCl Immed Release 5 MG TABLET 10 MG PO (23:19)
[2023-10-25 23:22] VITALS: BP 111/62; PULSE 75; RESP 16; TEMP 37; O2SAT 96
== END 2023-10-25 23:25 | disposition home or self-care (01) ==
PROVIDERS: Emergency Provider Emergency Medicine
DX: R10.31 Right lower quadrant pain (principal); R50.9 Fever, unspecified; R11.2 Nausea with vomiting, unspecified; K21.9 Gastro-esophageal reflux disease without esophagitis; Z03.818 Encounter for observation for suspected exposure to other biological agents ruled out
CPT/HCPCS: 0241U; 36415; 74177; 80053; 81001; 83605; 83690; 84484; 85025; 87040; 93005; 96361; 96374; 96375; 99285; J1170; J2405; Q9967

== ENCOUNTER → 2023-10-25 17:03 | Outpatient (BNV) | payer OTHER, SELFPAY | PROVIDERS: Emergency Provider Emergency Medicine; Visit Provider Internal Medicine | DX: R10.9 Unspecified abdominal pain (principal) | CPT/HCPCS: 93010 ==

== ENCOUNTER 2023-10-28 03:54 | Emergency (ER) | payer OTHER, SELFPAY ==
--- NOTE | ~2023-10-28 | CT_ITS ---
EXAMINATION: CT ABDOMEN AND PELVIS WITH CONTRAST CLINICAL INFORMATION: Right-sided abdominal pain. Diarrhea. COMPARISON: 10/25/2023 TECHNIQUE: Multidetector volumetric images were obtained from the superior aspect of the liver through the pubic symphysis following administration 85 mL of Omnipaque 350 intravenous contrast. Sagittal and coronal reformatted images were obtained on the technologist's workstation. Oral contrast: No This CT examination was performed using dose optimization techniques as appropriate, variously including the following: *Automated exposure control *Adjustment of mA and/or kV according to patient size (this includes techniques or standardized protocols for targeted exams where dose is matched to indication/reason for exam; i.e. extremities or head) *Use of iterative reconstruction technique DLP: 529 mGy-cm FINDINGS: LUNG BASES: Bilateral breast implants are partially imaged. LIVER, GALLBLADDER, AND BILIARY TREE: The liver is normal in size, shape, and attenuation. No focal hepatic lesion or biliary ductal dilatation is present. The gallbladder is surgically absent. PANCREAS: No ductal dilatation. SPLEEN: Not enlarged. 5 mm hypodensity too small to characterize. ADRENAL GLANDS: No adrenal mass. KIDNEYS AND URETERS: The kidneys are normal in size, shape, and attenuation. No hydronephrosis. No perinephric stranding. BLADDER: Decompressed. GASTROINTESTINAL TRACT: Status post gastric sleeve. Scattered colonic diverticula. Questionable wall thickening and pericolonic inflammatory change involving the ascending colon above the ileocecal valve. Appendix is within normal limits. ABDOMINAL WALL: No significant hernia is appreciated. LYMPH NODES: Few prominent right lower quadrant mesenteric lymph nodes. Few subcentimeter retroperitoneal lymph nodes. VASCULAR: No abdominal aortic aneurysm. PELVIC VISCERA: Calcified posterior uterine fibroid. Enhancing right uterine body fibroid. Dilated tubular hypodense structure in the left adnexa. OSSEOUS STRUCTURES: No destructive bone lesions. CT/CT abdomen pelvis w IV con IMPRESSION: Questionable wall thickening and pericolonic inflammatory change involving the ascending colon above the ileocecal valve. There are few prominent right lower quadrant mesenteric lymph nodes. This may represent an acute infectious or inflammatory process. Consider correlation with direct visualization. Possible left hydrosalpinx. Uterine fibroids. Consider correlation with pelvic ultrasound.
[2023-10-28 04:05] VITALS: BP 112/73; PULSE 85; RESP 16; TEMP 36.7; O2SAT 97; BMI 29.9
[2023-10-28 04:23] LABS: Basophils Percent Auto 0.3 % (0-2); Eosinophils Absolute Auto 0.2 X10*3/uL (0.0-0.4); Eosinophils Percent Auto 3.3 % (0-4); Hematocrit 37.1 % (37.0-47.0); Hemoglobin 12.4 g/dl (12.0-16.0); Imm Gran Abs Auto 0.02 X10*3/uL (0.00-0.03); Imm Gran Pct Auto 0.3 % (0.0-0.4); Lymphocytes Absolute Auto 1.3 X10*3/uL (1.2-4.9); Lymphocytes Percent Auto 20.9 % (20-40); MANUAL DIFF FLAG NO; Mean Corpuscular HGB Conc 33.4 g/dl (31.0-35.0); Mean Corpuscular Hemoglobin 27.8 pg (27.0-33.0); Mean Corpuscular Volume 83.2 fL (80.0-98.0); Monocytes Absolute Auto 0.8 X10*3/uL (0.1-1.2); Monocytes Percent Auto 13.1 % (2-11); Neutrophils Percent Auto 62.1 % (45-73); Platelet Count 244 X10*3/uL (160-400); Red Blood Count 4.46 X10*6/uL (4.20-5.50); Red Cell Distribution Width 13.1 % (11.0-16.0); White Blood Count 6.4 X10*3/uL (4.8-10.8)
--- NOTE | 2023-10-28 04:28 | MHC.EDTECH ---
Patient blood drawn and urine sample collected all sent to lab .
[2023-10-28 04:30] LABS: Appearance Urine Cloudy; Color Urine Dark Yellow; Glucose Urine UA Negative (Negative); Leukocyte Esterase Urine Trace (Negative); Nitrite Urine Negative (Negative); PH 5.5 (5.0-9.0); Specific Gravity - Urine 1.025 (1.005-1.025); UMIC TRIGGER UACC YES; Urine Blood Small (1+) (Negative); Urine Ketones 80 mg/dL (Negative); Urine Protein Trace mg/dL (Neg-Trace)
[2023-10-28 04:35] LABS: Anion Gap 13 (12-20); Blood Urea Nitrogen 11 mg/dL (9-16); Calcium 9.1 mg/dL (8.4-10.2); Carbon Dioxide 26 mmol/L (22-29); Chloride 106 mmol/L (96-108); Creatinine Clr Calc Pharmacy 89.3; Estimated Glomerular Filt Rate > 60; Glucose Random 92 mg/dL (60-115); Potassium 3.2 mmol/L (3.3-5.1); Sodium 142 mmol/L (135-145)
[2023-10-28 04:38] LABS: Bacteria Urine 1+ (None Seen); UACC Culture Trigger YES
--- NOTE | 2023-10-28 07:52 | ED.ABDPAIN ---
HPI - Abdominal Pain General Chief Complaint: Abdominal Pain Stated Complaint: diarrhea unable to eat or drink Time Seen by Provider: 10/28/23 07:40 Source: patient and old records reviewed Mode of arrival: ambulatory Limitations: no limitations History of Present Illness ED Provider: CLEMENT LIU narrative: 53 yo female with PMH of prediabetes, HTN, but doing great s/p gastric sleeve here in June she notes since Tuesday she has had persistent R sided abdominal pain as well as diarrhea anytime she eats or drinks. No travel, fevers, bloody stools, abx use. She notes she is trying liquids but still has diarrhea every time. She is not feeling better and just feels tired and weak. She did not change her diet or do anything unusual over the weekend. She has been in contact with Felipa ARRIOLA MD elicited complaint: abdominal pain Pertinent past history: other Onset (ago): day(s) (Tuesday) Pain Consistency: constant Location: other (R abdominal pain) Severity: moderate Quality: aching Radiation: none Migration to: no migration Exacerbating factors: eating and movement Relieving factors: nothing Associated symptoms: nausea and diarrhea Related Data Previous Rx's ?Medication ?Instructions ?Recorded ondansetron 4 mg disintegrating 4 mg PO Q12H nausea and vomiting 07/01/23 tablet #20 tabs docusate sodium 100 mg capsule 100 mg PO DAILY #90 caps 07/26/23 (Colace) inulin 2 gram chewable tablet 2 g PO DAILY #90 tabs 09/22/23 loperamide 2 mg tablet (Imodium 2 mg PO Q6H PRN loose stool #14 10/25/23 A-D) tabs ondansetron 4 mg disintegrating 4 mg PO Q6-8H PRN nausea and 10/25/23 tablet vomiting #7 tabs tramadol 50 mg tablet 50 mg PO Q6H PRN pain #20 tabs 10/25/23 Allergies Allergy/AdvReac Type Severity Reaction Status Date / Time Penicillins [PCN] Allergy Severe Rash, all Verified 10/28/23 04:08 over body morphine AdvReac Itching Verified 10/28/23 08:47 Review of Systems Review of Systems Constitutional : No Weight loss, No Fever, No Chills ENT/Mouth : No sore throat, No Rhinorrhea Eyes: No Swelling, No Redness Cardiovascular : No Chest Pain, No SOB, NoEdema Respiratory : No Cough, No Sputum, No Wheezing Gastrointestinal : Positive Nausea, no Vomiting, positive Diarrhea, positive abdominal Pain, No Hematochezia, No Melena Genitourinary : No Dysuria, No Urinary Frequency, No Hematuria, No Urgency Musculoskeletal : No joint pain, No Myalgias, No Joint Swelling Skin : No Skin Lesions, No rash Neuro : No Weakness, No Numbness, No Dizziness, No Headache Psych : No Anxiety/Panic, No Depression All other systems reviewed and are negative. FORMERLY [facility], [facility] Past Medical History Attestation statement: The following information was validated with the patient. Source: old records reviewed Medical History BMI 35.0-35.9,adult Situational anxiety PONV (postoperative nausea and vomiting) HTN (hypertension) Migraines BMI 34.0-34.9,adult Surgical History S/P laparoscopic sleeve gastrectomy H/O ovarian cystectomy (~2016) Hx laparoscopic cholecystectomy Hx of section Hx of cosmetic plastic surgery Hx of breast augmentation Family History Family History Mother Heart disease Father Kidney disease Hypertension Diabetes Sister Hypertension Brother Hypertension Diabetes Son No problems noted. Daughter No problems noted. Daughter No problems noted. Social History Social History Household Members: Family Housing: Apartment Are you a primary care process manager to a significant other at home: No Do you presently have visiting nurse or other home services: Yes Alcohol intake: never Patient Tobacco Use Status: Never used Tobacco Smoked in Last 30 Days: No Use of substances other than those prescribed or required for medical reasons: No Advance Directives: No Advance Directives Information Provided: No Do you have a plan to hurt others: No Plan service: No Physical Exam ED Vital Signs: Vital Signs - 24 hr 10/28/23 04:05 10/28/23 08:18 10/28/23 12:11 Temperature 98.1 F Pulse Rate 85 71 63 Respiratory Rate 16 16 18 Blood Pressure 112/73 91/42 L 101/49 L Pulse Oximetry 97 98 96 Oxygen Delivery Method Room Air Room Air Room Air BMI result Body Mass Index 29.9 Appearance: Alert. Oriented X3. No acute distress. Eyes: Pupils equal, round and reactive to light. ENT: Pharynx mildly dry MM Neck: Normal inspection. Neck supple. CVS: Normal heart rate and rhythm. Pulses normal. Respiratory: No respiratory distress. Breath sounds normal. Abdomen: Soft and moderate ttp R side of abdomen but no rebound Skin: Skin warm and dry. pale skin color. Extremities: No lower extremity edema. Neuro: Oriented X 3. No motor deficit. No sensory deficit. Course Course Course Narrative: pain improved with IV dilaudid Medical Decision Making Medical Decision Making [facility] Narrative: 53 yo female with PMH of prediabetes, HTN, but doing great s/p gastric sleeve here in June presents again with worsening R sided pain and diarrhea at this time labs, IV K ordered, IV morphine for pain, CT scan repeat after discussion with bariatric surgery. Possible colitis, enteritis, dehyration. Differential Diagnosis Differential Diagnoses: The differential diagnosis associated with the presentation includes colitis, enteritis, dehydration Admission/Observation Consideration of admission/observation: Escalation of care including admission/observation considered feeling much better no change stool studies negative would like to go home will refer to GI lactic negative WBC negative Consult Healthcare Provider Management of the patient was discussed with: Medical Technologist Microbiology Felipa ARRIOLA aware since arrival - labs, fluids, and repeat CT scan refer to GI team per Felipa ARRIOLA not related to bariatrics will discuss with Hernesto overall the patient is feeling better no diarrhea here. bariatric aware continue liquids and shakes no call back from GI Lab Data [facility] Lab Attestation statement: I reviewed the patient's lab results. 10/28/23 04:19 10/28/23 04:19 Labs: Lab Results 10/28/23 10/28/23 10/28/23 Range/Units 04:19 04:25 08:20 WBC 6.4 (4.8-10.8) X10*3/uL RBC 4.46 (4.20-5.50) X10*6/uL Hgb 12.4 (12.0-16.0) g/dl Hct 37.1 (37.0-47.0) % MCV 83.2 (80.0-98.0) fL MCH 27.8 (27.0-33.0) pg MCHC 33.4 (31.0-35.0) g/dl RDW 13.1 (11.0-16.0) % Plt Count 244 (160-400) X10*3/uL MPV 11.0 (9.4-12.3) fL Immature Gran % (Auto) 0.3 (0.0-0.4) % Neut % (Auto) 62.1 (45-73) % Lymph % (Auto) 20.9 (20-40) % [place] % (Auto) 13.1 H (2-11) % Eos % (Auto) 3.3 (0-4) % Baso % (Auto) 0.3 (0-2) % Lymph # (Auto) 1.3 (1.2-4.9) X10*3/uL [place] # (Auto) 0.8 (0.1-1.2) X10*3/uL Eos # (Auto) 0.2 (0.0-0.4) X10*3/uL Baso # (Auto) 0.0 (0.0-0.2) X10*3/uL Abs Immat Gran (auto) 0.02 (0.00-0.03) X10*3/uL Absolute Neuts (auto) 4.0 (2.0-8.3) x10*3/uL Absolute Nucleated RBC 0.000 (0.0-0.012) X10*3/uL Nucleated RBC % (auto) 0.0 (0.0-0.2) /100WBC Sodium 142 (135-145) mmol/L Potassium 3.2 L (3.3-5.1) mmol/L Chloride 106 (96-108) mmol/L Carbon Dioxide 26 (22-29) mmol/L Anion Gap 13 (12-20) BUN 11 (9-16) mg/dL Creatinine 0.66 (0.5-1.4) mg/dL Estim Creat Clear Calc 89.3 Estimated GFR > 60 Random Glucose 92 (60-115) mg/dL Lactic Acid (0.5-2.0) mmol/L Calcium 9.1 (8.4-10.2) mg/dL Magnesium 1.6 (1.6-2.6) mg/dL Total Bilirubin 0.5 (0.0-1.0) mg/dL Direct Bilirubin 0.2 (0.0-0.5) mg/dL AST 20 (5-31) U/L ALT 20 (0-31) U/L Alkaline Phosphatase 108 (39-117) U/L Total Protein 6.8 (6.5-8.0) g/dL Albumin 3.4 L (3.5-5.0) g/dL Lipase 28 (8-78) U/L Urine Color Dark Yellow Urine Appearance Cloudy Urine pH 5.5 (5.0-9.0) Ur Specific [place] 1.025 (1.005-1.025) Urine Protein Trace (Neg-Trace) mg/dL Urine Glucose (UA) Negative (Negative) mg/dL Urine Ketones 80 (Negative) mg/dL Urine Blood Small (1+) H (Negative) Urine Nitrite Negative (Negative) Ur Leukocyte Esterase Trace H (Negative) Urine RBC 3-5 H (0-2) /HPF Urine WBC 6-10 H (0-5) /HPF Ur Squamous Epith Cells 11-20 (0-2) /HPF Urine Bacteria 1+ (None Seen) Hyaline Casts 3-5 (0-2) /LPF Stl C. cayetanensis PCR Not Detected (Not Detect.) Stool Rotavirus A PCR Not Detected (Not Detect.) Stl Adenov F 40/41 PCR Not Detected (Not Detect.) Stool Astrovirus (PCR) Not Detected (Not Detect.) Stool Campylobacter PCR Not Detected (Not Detect.) Stool Cryptosporidium PCR Not Detected (Not Detect.) Stl Sh Tox Pr E STEC PCR Not Detected (Not Detect.) Stool E coli O157 PCR Not applicable (Not Detect.) Stl Enterotoxigenic E PCR Not Detected (Not Detect.) Stool EPEC (PCR) Not Detected (Not Detect.) Stool EAEC (PCR) Not Detected (Not Detect.) Stl E. histolytica PCR Not Detected (Not Detect.) Stool Giardia Lamblia PCR Not Detected (Not Detect.) Stl P. shigelloides PCR Not Detected (Not Detect.) Stool Salmonella PCR Not Detected (Not Detect.) Stool Sapovirus (PCR) Not Detected (Not Detect.) Stl Shigella/EIEC PCR Not Detected (Not Detect.) St Y.enterocolitica PCR Not Detected (Not Detect.) Stool Vibrio (PCR) Not Detected (Not Detect.) Stl Vibrio cholerae PCR Not Detected (Not Detect.) Stl Norovirus GI/GII PCR Not Detected (Not Detect.) C. difficile Tox B Gene NEGATIVE (Negative) 10/28/23 Range/Units 08:28 WBC (4.8-10.8) X10*3/uL RBC (4.20-5.50) X10*6/uL Hgb (12.0-16.0) g/dl Hct (37.0-47.0) % MCV (80.0-98.0) fL MCH (27.0-33.0) pg MCHC (31.0-35.0) g/dl RDW (11.0-16.0) % Plt Count (160-400) X10*3/uL MPV (9.4-12.3) fL Immature Gran % (Auto) (0.0-0.4) % Neut % (Auto) (45-73) % Lymph % (Auto) (20-40) % [place] % (Auto) (2-11) % Eos % (Auto) (0-4) % Baso % (Auto) (0-2) % Lymph # (Auto) (1.2-4.9) X10*3/uL [place] # (Auto) (0.1-1.2) X10*3/uL Eos # (Auto) (0.0-0.4) X10*3/uL Baso # (Auto) (0.0-0.2) X10*3/uL Abs Immat Gran (auto) (0.00-0.03) X10*3/uL Absolute Neuts (auto) (2.0-8.3) x10*3/uL Absolute Nucleated RBC (0.0-0.012) X10*3/uL Nucleated RBC % (auto) (0.0-0.2) /100WBC Sodium (135-145) mmol/L Potassium (3.3-5.1) mmol/L Chloride (96-108) mmol/L Carbon Dioxide (22-29) mmol/L Anion Gap (12-20) BUN (9-16) mg/dL Creatinine (0.5-1.4) mg/dL Estim Creat Clear Calc Estimated GFR Random Glucose (60-115) mg/dL Lactic Acid 0.6 (0.5-2.0) mmol/L Calcium (8.4-10.2) mg/dL Magnesium (1.6-2.6) mg/dL Total Bilirubin (0.0-1.0) mg/dL Direct Bilirubin (0.0-0.5) mg/dL AST (5-31) U/L ALT (0-31) U/L Alkaline Phosphatase (39-117) U/L Total Protein (6.5-8.0) g/dL Albumin (3.5-5.0) g/dL Lipase (8-78) U/L Urine Color Urine Appearance Urine pH (5.0-9.0) Ur Specific [place] (1.005-1.025) Urine Protein (Neg-Trace) mg/dL Urine Glucose (UA) (Negative) mg/dL Urine Ketones (Negative) mg/dL Urine Blood (Negative) Urine Nitrite (Negative) Ur Leukocyte Esterase (Negative) Urine RBC (0-2) /HPF Urine WBC (0-5) /HPF Ur Squamous Epith Cells (0-2) /HPF Urine Bacteria (None Seen) Hyaline Casts (0-2) /LPF Stl C. cayetanensis PCR (Not Detect.) Stool Rotavirus A PCR (Not Detect.) Stl Adenov F 40/41 PCR (Not Detect.) Stool Astrovirus (PCR) (Not Detect.) Stool Campylobacter PCR (Not Detect.) Stool Cryptosporidium PCR (Not Detect.) Stl Sh Tox Pr E STEC PCR (Not Detect.) Stool E coli O157 PCR (Not Detect.) Stl Enterotoxigenic E PCR (Not Detect.) Stool EPEC (PCR) (Not Detect.) Stool EAEC (PCR) (Not Detect.) Stl E. histolytica PCR (Not Detect.) Stool Giardia Lamblia PCR (Not Detect.) Stl P. shigelloides PCR (Not Detect.) Stool Salmonella PCR (Not Detect.) Stool Sapovirus (PCR) (Not Detect.) Stl Shigella/EIEC PCR (Not Detect.) St Y.enterocolitica PCR (Not Detect.) Stool Vibrio (PCR) (Not Detect.) Stl Vibrio cholerae PCR (Not Detect.) Stl Norovirus GI/GII PCR (Not Detect.) C. difficile Tox B Gene (Negative) Independent Interpretation I performed an independent interpretation of an: CT Scan (similar pattern of inflammation) Radiology Impression Discussion of test interpretation with radiology: I have reviewed the radiologist's reading. External Record Review External record reviewed: Inpatient record Medications Administered Discontinued Medications Generic Name Dose Route Start Last Admin Trade Name Alise PRN Reason Stop Dose Admin Hydromorphone HCl 0.5 mg 10/28/23 08:48 10/28/23 09:39 Hydromorphone Hcl 0.5 Mg/0.5 Ml Syringe IVPUSH 10/28/23 08:49 0.5 mg ONCE ONE Administration Protocol Lactated Ringer's 1,000 mls @ 999 mls/hr 10/28/23 08:15 10/28/23 12:31 Lr IV 10/28/23 09:15 Infused .Q1H1M SYLVIA Infusion Potassium Chloride 10 meq in 100 mls @ 100 mls/hr 10/28/23 08:15 10/28/23 11:31 Potassium Chloride/H20 IV 10/28/23 10:14 Infused Q1H SYLVIA Infusion Lactated Ringer's 1,000 mls @ 999 mls/hr 10/28/23 08:17 10/28/23 10:01 Lr IV 10/28/23 09:17 Infused .Q1H1M ONE Infusion Iohexol 85 ml 10/28/23 09:21 10/28/23 09:22 Iohexol 350 Mg/Ml 100 Ml Infus..Btl IV 10/28/23 09:22 85 ml ONCE ONE Administration Morphine Sulfate 4 mg 10/28/23 08:05 10/28/23 08:46 Morphine Sulfate 4 Mg/Ml Cartridge IVPUSH 10/28/23 08:06 Not Given ONCE ONE Protocol Ondansetron HCl 4 mg 10/28/23 08:05 10/28/23 08:33 Ondansetron Hcl 4 Mg/2 Ml Vial IVPUSH 10/28/23 08:06 4 mg ONCE ONE Administration Critical Care Time Critical Care Time Critical Care Time: Yes Total Critical Care Time: 35 Attestation: IVF x 2L, pain improved with IV dilaudid, IV potassium ordered and repleted, consult, review of records I attest to this time spent taking care of the patient Discharge Plan Discharge Clinical Impression: Colitis, Acute hypokalemia Patient Disposition: Home, Self-Care Instructions: Hypokalemia (ED), Acute Diarrhea (ED), Colitis (ED) Additional Instructions: continue clears for 24 hours then start shakes continue close discussion with Juan Leo. return for fevers, bloody stools, worsening pain or any other concerns follow up with GI continue the immodium Prescriptions: No Action docusate sodium [Colace] 100 mg capsule 100 mg PO DAILY Qty: 90 0RF loperamide [Imodium A-D] 2 mg tablet 2 mg PO Q6H PRN (Reason: loose stool) Qty: 14 0RF tramadol 50 mg tablet 50 mg PO Q6H PRN (Reason: pain) Qty: 20 0RF ondansetron 4 mg tablet,disintegrating 4 mg PO Q6-8H PRN (Reason: nausea and vomiting) Qty: 7 0RF ondansetron 4 mg tablet,disintegrating 4 mg PO Q12H Qty: 20 0RF Rx Instructions: Only take one every 12 hours as needed if you have nausea inulin 2 gram tablet,chewable 2 g PO DAILY Qty: 90 3RF Referrals: Nikko Eric MD [Physician] - (call to schedule appointment - GI doctor) Print Language: Macedonian
[2023-10-28 08:18] VITALS: BP 91/42; PULSE 71; RESP 16; O2SAT 98
[2023-10-28 08:27] LABS: Alanine Aminotransferase 20 U/L (0-31); Albumin Level 3.4 g/dL (3.5-5.0); Alkaline Phosphatase 108 U/L (39-117); Aspartate Amino Transferase 20 U/L (5-31); Bilirubin Direct 0.2 mg/dL (0.0-0.5); Bilirubin Total 0.5 mg/dL (0.0-1.0); Lipase 28 U/L (8-78); Magnesium 1.6 mg/dL (1.6-2.6); Total Protein 6.8 g/dL (6.5-8.0)
[2023-10-28] MEDS: ondansetron HCL 4 MG/2 ML VIAL IVPUSH (08:33)
[2023-10-28] MEDS: Potassium Chloride/H20 10 MEQ/100 ML PIGGYBACK 100 MEQ IV ×2 (08:36→09:44)
[2023-10-28] MEDS: Lactated Ringers 1,000 ML 999 ML IV ×2 (08:36→10:00)
[2023-10-28 08:42] LABS: Lactic Acid 0.6 mmol/L (0.5-2.0)
[2023-10-28 09:22] LABS: CDiff Gene PCR NEGATIVE (Negative)
[2023-10-28] MEDS: iohexoL 350 MG/ML 100 ML INFUS..BTL 85 ML IV (09:22)
[2023-10-28] MEDS: HYDROmorphone HCl 0.5 MG/0.5 ML SYRINGE IVPUSH (09:39)
[2023-10-28 10:01] LABS: Adenovirus F 40/41 Not Detected (Not Detect.); Astrovirus Not Detected (Not Detect.); Campylobacter Not Detected (Not Detect.); Cryptosporidium Not Detected (Not Detect.); Cyclospora cayetanensis Not Detected (Not Detect.); E. coli EAEC Not Detected (Not Detect.); E. coli EPEC Not Detected (Not Detect.); E. coli ETEC Not Detected (Not Detect.); E. coli STEC Not Detected (Not Detect.); Entamoeba histolytica Not Detected (Not Detect.); Giardia lamblia Not Detected (Not Detect.); Norovirus GI/GII Not Detected (Not Detect.); Plesiomonas shigelloides Not Detected (Not Detect.); Rotavirus A Not Detected (Not Detect.); Salmonella Not Detected (Not Detect.); Sapovirus Not Detected (Not Detect.); Shigella sp./EIEC Not Detected (Not Detect.); Vibrio Not Detected (Not Detect.); Vibrio Cholerae Not Detected (Not Detect.); Yersinia enterocolitica Not Detected (Not Detect.)
[2023-10-28 12:11] VITALS: BP 101/49; PULSE 63; RESP 18; O2SAT 96
--- NOTE | 2023-10-28 12:32 | PC.NURSE ---
fluids and potassium complete. pt resting in darkened room. Pt continues to have diarrhea
[2023-10-28 14:01] VITALS: BP 101/49; PULSE 63; RESP 18; TEMP 36.7; O2SAT 96
== END 2023-10-28 14:01 | disposition home or self-care (01) ==
PROVIDERS: Emergency Provider Emergency Medicine
DX: K52.9 Noninfective gastroenteritis and colitis, unspecified (principal); E87.6 Hypokalemia; I10 Essential (primary) hypertension; Z98.84 Bariatric surgery status
CPT/HCPCS: 36415; 74177; 80048; 80076; 81001; 83605; 83690; 83735; 85025; 87086; 87493; 87507; 96361; 96374; 96375; 99284; J1170; J2270; J2405; J3480; J7120; Q9967

== ENCOUNTER 2023-11-03 13:41 | Outpatient (AMB) | payer OTHER, SELFPAY ==
--- NOTE | 2023-11-03 13:26 | A.OFFVIS_ITS ---
Intake Visit Reasons: (TELEPHONE) PO LSG 07/12/23 Allergies Penicillins [PCN] Allergy (Severe, Verified 10/28/23 04:08) Rash, all over body morphine Adverse Reaction (Verified 10/28/23 08:47) Itching Medication List - Last Reconciled 11/03/23 by ZEINAB Santana docusate sodium (Colace) 100 mg PO DAILY inulin 2 grams PO DAILY loperamide (Imodium A-D) 2 mg PO Q6H PRN ondansetron 4 mg PO Q6-8H PRN tramadol 50 mg PO Q6H PRN HPI Comments Details: This?is a?53 yo female who is s/p LSG 07/12/2023. Presents for 4 month post op visit. Weight at last visit on 09/22/2023 was 158 pounds with a BMI of 29.9, pt unsure of weight today.? Pt continues to have some reflux, even first thing in the morning. Taking famotidine. Was in the ER twice recently for diarrhea, but this is better now. Present meal plan includes: One Premier shake per day One Fitcrunch bar 2 small meals of 1-2oz solid protein, 1oz veg Exercise routine includes: trying to burn 300 calories daily- exercising at home every morning prior to ER PFSH Medical History BMI 35.0-35.9,adult Situational anxiety PONV (postoperative nausea and vomiting) HTN (hypertension) Migraines BMI 34.0-34.9,adult Surgical History S/P laparoscopic sleeve gastrectomy H/O ovarian cystectomy (~2017) Hx laparoscopic cholecystectomy Hx of section Hx of cosmetic plastic surgery Hx of breast augmentation Family History Mother Heart disease Father Kidney disease Hypertension Diabetes Sister Hypertension Brother Hypertension Diabetes Son No problems noted. Daughter No problems noted. Daughter No problems noted. Social History Household Members: Family Housing: Apartment Are you a primary director of critical care to a significant other at home: No Do you presently have visiting nurse or other home services: Yes Alcohol intake: never Patient Tobacco Use Status: Never used Tobacco service: No Telehealth Telehealth Telehealth Platform: Telephone Location of provider rendering services: other Location of patient: address on file Patient Identification confirmed using: Name, : Yes Telehealth method: voice only Patient verbally consented to treatment: Yes Patient verbally consented to billing insurance company: Yes Patient informed of any privacy concerns related to visit: Yes Minutes spent on Phone/Video with Pt.: 15 Assessment & Plan Assessment & Plan (1) Overweight: Code(s): E66.3 - Overweight Category: Medical (2) S/P laparoscopic sleeve gastrectomy: Code(s): Z98.84 - Bariatric surgery status Category: Surgical Plan Pt can increase vegetable portion to 2oz if she feels hungry. Otherwise continue same plan. Reviewed reflux triggers again, eating/drinking slowly. Will refill pantoprazole for now. Coconut water ok but limit to 8oz/day. RTC 6 weeks. Patient is overweight and is not considered stable at this time. I spent a total of 30 minutes reviewing/updating records, examining the patient and counseling the patient on weight management as detailed above. Medications: New pantoprazole 40 mg PO DAILY 90 tabs 1RF
== END 2023-11-03 13:52 | disposition home or self-care (01) ==
LOC: HO.HBS 13:41
PROVIDERS: Visit Provider Physician Assistant Surgical
DX: E66.3 Overweight (principal); Z98.84 Bariatric surgery status
CPT/HCPCS: 99214

== ENCOUNTER 2023-12-14 11:08 | Outpatient (AMB) | payer OTHER, SELFPAY ==
--- NOTE | 2023-12-14 11:04 | A.OFFVIS_ITS ---
VS Expanded 12/14/23 11:07 Height 5 ft 1 in Weight 148 lb BMI 28.0 Intake Visit Reasons: TELEPHONE PO LSG 07/12/23 Allergies Penicillins [PCN] Allergy (Severe, Verified 10/28/23 04:08) Rash, all over body morphine Adverse Reaction (Verified 10/28/23 08:47) Itching Medication List - Last Reconciled 12/14/23 by ZEINAB Santana docusate sodium (Colace) 100 mg PO DAILY inulin 2 grams PO DAILY loperamide (Imodium A-D) 2 mg PO Q6H PRN ondansetron 4 mg PO Q6-8H PRN pantoprazole 40 mg PO DAILY tramadol 50 mg PO Q6H PRN HPI Comments Details: This?is a?53?yo female who is s/p LSG 07/12/2023. Presents for 5 month post op visit. Lost about 10lbs since last weight measurement in August. No complaints of nausea, emesis, abdominal pain or constipation. Takes PPI for reflux which is helping. 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 Daughter No problems noted. Daughter No problems noted. Social History Household Members: Family Housing: Apartment Are you a primary women's health care nurse practitioner to a significant other at home: No Do you presently have visiting nurse or other home services: Yes Alcohol intake: never Patient Tobacco Use Status: Never used Tobacco service: No Telehealth Telehealth Telehealth Platform: Telephone Location of provider rendering services: practice address Location of patient: address on file Patient Identification confirmed using: Name, : Yes Telehealth method: voice only Patient verbally consented to treatment: Yes Patient verbally consented to billing insurance company: Yes Patient informed of any privacy concerns related to visit: Yes Minutes spent on Phone/Video with Pt.: 15 Assessment & Plan Assessment & Plan (1) Overweight: Code(s): E66.3 - Overweight Category: Medical (2) S/P laparoscopic sleeve gastrectomy: Code(s): Z98.84 - Bariatric surgery status Category: Surgical Plan Pt would like to transition to maintenance soon. Today can add 2 forks healthy carb (rice, potato, pasta) to one of her meals. Discussed options for bariatric vitamins and sent other brands. RTC 6 weeks for 6mo appt. I spent a total of 30 minutes reviewing/updating records, examining the patient and counseling the patient on weight management as detailed above.
[2023-12-14 11:07] VITALS: BMI 28.0
== END 2023-12-14 11:26 | disposition home or self-care (01) ==
LOC: HO.HBS 11:08
PROVIDERS: Visit Provider Physician Assistant Surgical
DX: E66.3 Overweight (principal); Z98.84 Bariatric surgery status
CPT/HCPCS: 99214